=== PATIENT | female | born 1955 | race Caucasian/White ===

== ENCOUNTER → 2019-03-29 12:45 | Outpatient (BNVA) | payer MEDICARE, MEDICAID, SELFPAY | PROVIDERS: Family Provider Family Medicine; PCP Family Medicine; Visit Provider Psychiatry & Neurology Psychiatry | DX: F33.1 Major depressive disorder, recurrent, moderate (principal); F41.1 Generalized anxiety disorder | CPT/HCPCS: 99213 ==

== ENCOUNTER 2019-04-07 10:30 | Outpatient (CLI) | payer MEDICARE, MEDICAID, SELFPAY | END 2019-04-07 10:31 | disposition home or self-care (01) | LOC: RAD 04-08 15:25 | PROVIDERS: Family Provider Family Medicine; PCP Family Medicine; Referring Provider Family Medicine; Visit Provider Family Medicine | DX: E04.9 Nontoxic goiter, unspecified (principal); I50.30 Unspecified diastolic (congestive) heart failure | CPT/HCPCS: 80048; 83880; 84443 ==

== ENCOUNTER 2019-04-18 10:24 | Outpatient (CLI) | payer MEDICARE, MEDICAID, SELFPAY ==
--- NOTE | 2019-04-18 11:00 | US_ITS ---
WS: [id number] THYROID ULTRASOUND HISTORY: enlarged thyroid vs salivary gland COMPARISON: None available. Right lobe: 4.5 cm x 2.1 cm x 1.7 cm. Volume: 8.6 cm3. Hypoechoic nodule along the posterior mid RIGHT thyroid gland measures 1.1 x 0.7 cm. Well-circumscrib ed with no increased vascularity. Left lobe: 4.2 cm x 1.4 cm x 1.4 cm. Volume: 4.2 cm3. Normal size gland. A few benign cystic areas. No dominant mass or nodule. Isthmus: 0.5 mm. US/US thyroid [id number] IMPRESSION: 1. Indeterminate nodule in the posterior mid RIGHT thyroid. Due to its positio n this may represent a parathyroid adenoma or thyroid adenoma. 2. Normal size thyroid.
--- NOTE | 2019-04-18 12:45 | US_ITS ---
WS: [id number] ULTRASOUND SOFT TISSUES LEFT neck HISTORY: prominent salivary gland COMPARISON: None available. TECHNIQUE: 2-D and color Doppler imaging is submitted. Ultrasound is directed to the LEFT mandible. There is a benign lymph node as directed by the patient measuring 9 x 5 mm. Normal fatty hilum. There are additional smaller lymph nodes along both cervical chains. No suspicious mass or enlargement. US/US soft tissue head neck [id number] IMPRESSION: Benign-appearing bilateral cervical chain lymph nodes.
== END 2019-04-18 10:25 | disposition home or self-care (01) ==
LOC: RAD 10:31
PROVIDERS: Family Provider Family Medicine; PCP Family Medicine; Visit Provider Family Medicine
DX: K11.1 Hypertrophy of salivary gland (principal); E04.1 Nontoxic single thyroid nodule
CPT/HCPCS: 76536

== ENCOUNTER 2019-04-20 09:22 | Outpatient (CLI) | payer MEDICARE, MEDICAID, SELFPAY ==
--- NOTE | 2019-04-20 09:30 | USCV_ITS ---
Alexia Kang Age: 63 Gender: F : 1955 Exam Date: 04/20/2019 10:11 Ordering Phys: Makenzie Sethi Technologist: Jannie Horne [place] [facility] [place]: CHF BP: 123 / 73 HR: 61 Rhythm: Sinus Technical Quality: Adequate MEASUREMENTS (Male / Female) Normal Values 2D ECHO LV Diastolic Diameter PLAX 3.9 cm 4.2 - 5.9 / 3.9 - 5.3 cm LV Systolic Diameter PLAX 2.0 cm LV Chamber Size 2.8 cm IVS Diastolic Thickness 1.4 cm 0.6 - 1.0 / 0.6 - 0.9 cm IVS Systolic Thickness 1.5 cm LVPW Diastolic Thickness 2.0 cm 0.6 - 1.0 / 0.6 - 0.9 cm LVPW Systolic Thickness 2.3 cm RV Chamber Size 3.3 cm LVOT Diameter 2.0 cm LV Ejection Fraction 2D Teich 81.1 % LV Ejection Fraction MOD 2C 72.1 % LV Ejection Fraction 2C AL 72.4 % LA Diameter 4.0 cm LA Width 3.4 cm LA Height 4.3 cm RA Width 3.6 cm RA Height 4.3 cm Aorta at Sinotubular Diameter 2.5 cm M-MODE LV Diastolic Diameter MM 5.0 cm 4.2 - 5.9 / 3.9 - 5.3 cm LV Systolic Diameter MM 2.7 cm LV Ejection Fraction MM Teich 76.3 % IVS Diastolic Thickness MM 1.3 cm 0.6 - 1.0 / 0.6 - 0.9 cm IVS Systolic Thickness MM 1.4 cm LVPW Diastolic Thickness MM 1.1 cm 0.6 - 1.0 / 0.6 - 0.9 cm LVPW Systolic Thickness MM 1.7 cm Aortic Annulus Diameter 3.1 cm LA Ao Ratio MM 1.3 MV E Point Septal Separation 0.7 cm DOPPLER AV Peak Velocity 135.0 cm/s LVOT Peak Velocity 119.0 cm/s AV Area Cont Eq vti 3.0 cm squared AV Area Cont Eq pk 2.8 cm squared MV Area PHT 2.5 cm squared Mitral E to A Ratio 0.9 MV E' Velocity 9.0 cm/s Mitral E to MV E' Ratio 12.1 Mitral E to LV E' Lateral Ratio 11.5 Mitral E to LV E' Septal Ratio 12.8 TR Peak Velocity 204.0 cm/s TR Peak Gradient 16.7 mmHg TR Mean Velocity 178.1 cm/s TR Mean Gradient 14.6 mmHg TR Velocity Time Integral 81.6 cm TV Peak E Velocity 71.0 cm/s Right Atrial Pressure 3.0 mmHg Pulmonary Artery Systolic Pressu 19.6 mmHg PV Peak Velocity 70.0 cm/s RV Acceleration Time 0.1 s RV Ejection Time 0.4 s RV AcT/ET 0.4 FINDINGS Left Ventricle Normal left ventricular cavity size. Normal left ventricular systolic function. No regional wall motion abnormalities. Left ventricular ejection fraction is estimated at 60 %. Grade I/IV diastolic dysfunction (abnormal relaxation filling pattern), normal to mildly elevated filling pressures. Right Ventricle The right ventricle is normal in size and function. Right Atrium The right atrium is normal in size. Left Atrium The left atrium is normal in size. Mitral Valve Structurally normal mitral valve without significant stenosis or prolapse. There is no mitral regurgitation. Aortic Valve Structurally normal aortic valve without significant sclerosis or stenosis. There is no aortic regurgitation. Tricuspid Valve Structurally normal tricuspid valve without significant stenosis or regurgitation. Pulmonary artery systolic pressure is normal. Pulmonic Valve Structurally normal pulmonic valve without significant stenosis. There is no pulmonic regurgitation. Pericardium Normal pericardium without effusion. Aorta Normal ascending aorta dimension. CONCLUSIONS 1-Normal left ventricular cavity size. Normal left ventricular systolic function. No regional wall motion abnormalities. Left ventricular ejection fraction is estimated at 60 %. Grade I/IV diastolic dysfunction (abnormal relaxation filling pattern), normal to mildly elevated filling pressures. 2-There is no pericardial effusion. 3-No significant valve abnormalities. 4-Pulmonary artery systolic pressure is within normal limits. 5-Right atrial pressure is around 5 mm of mercury. 6-There are no prior echocardiogram studies to compare. Lou Deutsch MD (Electronically Signed) Final Date: 20 April 2019 19:47 S
== END 2019-04-20 09:23 | disposition home or self-care (01) ==
LOC: US 09:24
PROVIDERS: Family Provider Family Medicine; PCP Family Medicine; Visit Provider Nurse Practitioner Family
DX: I50.30 Unspecified diastolic (congestive) heart failure (principal)
CPT/HCPCS: 93306

== ENCOUNTER 2019-04-26 11:22 | Outpatient (CLI) | payer MEDICARE, MEDICAID, SELFPAY | END 2019-04-26 11:23 | disposition home or self-care (01) | LOC: LAB 11:26 | PROVIDERS: Family Provider Family Medicine; PCP Family Medicine; Visit Provider Otolaryngology | DX: E04.1 Nontoxic single thyroid nodule (principal) | CPT/HCPCS: 36415; 84443; 99203; 99214 ==

== ENCOUNTER 2019-04-27 08:49 | Outpatient (CLI) | payer MEDICARE, MEDICAID, SELFPAY ==
--- NOTE | 2019-04-27 09:30 | USCV_ITS ---
Alexia Kang Age: 63 Gender: F : 1955 Exam Date: 04/27/2019 09:10 Ordering Phys: Lou Deutsch MD ([email or web address]) Technologist: Gopi Gates Exam Location: [facility] [place] Indication: HISTORY: PROCEDURES: FINDINGS: No evidence of DVT seen in any vessel visualized at this time. There is reflux noted in the GSV below the knee on the right lower extremity. At this time no other vessels examined in the right lower extremity demonstrate reflux. There is reflux noted in the SFJ and GSV DIST TO on the left lower extremity. At this time no other vessels examined in the left lower extremity demonstrate reflux. CONCLUSIONS No evidence of DVT in the above-mentioned identifiable veins. On the right side, significant venous reflux of greater than 500 ms was noted at the below knee greater sinus vein segment. On the left side, significant venous reflux of greater than 500 ms were noted at the saphenofemoral junction and the greater saphenous vein distal to the saphenofemoral junction. The superficial veins were found to be more than 1 cm deep on both sides. The venous dimensions, depth from the surface and reflux times are as mentioned above Dr Vivien Rico MD [facility] (Electronically Signed) Final Date: 27 April 2019 20:26 S
== END 2019-04-27 08:50 | disposition home or self-care (01) ==
LOC: US 08:50
PROVIDERS: Family Provider Family Medicine; PCP Family Medicine; Visit Provider Internal Medicine Cardiovascular Disease
DX: M79.89 Other specified soft tissue disorders (principal)
CPT/HCPCS: 93970

== ENCOUNTER → 2019-05-04 10:59 | Outpatient (BNVA) | payer MEDICARE, MEDICAID, SELFPAY | PROVIDERS: Family Provider Family Medicine; PCP Family Medicine; Visit Provider Otolaryngology | DX: E04.1 Nontoxic single thyroid nodule (principal) | CPT/HCPCS: 99204; 99214 ==

== ENCOUNTER → 2019-05-10 15:59 | Outpatient (BNVA) | payer MEDICARE, MEDICAID, SELFPAY | PROVIDERS: Family Provider Family Medicine; PCP Family Medicine; Visit Provider Nurse Practitioner Family | DX: I87.2 Venous insufficiency (chronic) (peripheral) (principal) | CPT/HCPCS: 80048 ==

== ENCOUNTER 2019-05-12 09:06 | Outpatient (CLI) | payer MEDICARE, MEDICAID, SELFPAY ==
[2019-05-11 11:33] VITALS: BMI 49.6
--- NOTE | 2019-05-12 10:30 | US_ITS ---
WS: [id number] THYROID ULTRASOUND HISTORY: Nodule COMPARISON: 04/18/2019. Recently described hypoechoic nodule posterior to the RIGHT thyroid is located. Nodule is not within the thyroid but posterior to the thyroid and may be the esophagus that is very mobile during patient swallowing. During swallowing there did appear to be a small amount of air present. US/US thyroid [id number] IMPRESSION: 1. During today's ultrasound evaluation the nodule is posterior to the thyroid . 2. Suspect this is probably the esophagus which can be seen if it is ectatic a nd posterior to the thyroid.
== END 2019-05-12 09:07 | disposition home or self-care (01) ==
LOC: GILAB 09:15
PROVIDERS: Family Provider Family Medicine; PCP Family Medicine; Visit Provider Otolaryngology
DX: E04.1 Nontoxic single thyroid nodule (principal)
CPT/HCPCS: 76536; J7030

== ENCOUNTER → 2019-05-19 10:00 | Outpatient (BNVA) | payer MEDICARE, MEDICAID, SELFPAY | PROVIDERS: Family Provider Family Medicine; PCP Family Medicine; Visit Provider Otolaryngology | DX: R13.10 Dysphagia, unspecified (principal); E04.1 Nontoxic single thyroid nodule | CPT/HCPCS: 36415; 84443; 99214 ==

== ENCOUNTER → 2019-05-31 11:57 | Outpatient (BNVA) | payer MEDICARE, MEDICAID, SELFPAY | PROVIDERS: Family Provider Family Medicine; PCP Family Medicine; Visit Provider Family Medicine | DX: I87.2 Venous insufficiency (chronic) (peripheral) (principal); R35.8 Other polyuria; R60.9 Edema, unspecified; I50.30 Unspecified diastolic (congestive) heart failure | CPT/HCPCS: 80053; 83735 ==

== ENCOUNTER → 2019-06-08 08:43 | Outpatient (BNVA) | payer MEDICARE, MEDICAID, SELFPAY | PROVIDERS: Family Provider Family Medicine; PCP Family Medicine; Visit Provider Family Medicine | DX: I50.30 Unspecified diastolic (congestive) heart failure (principal) | CPT/HCPCS: 80053 ==

== ENCOUNTER → 2019-06-13 09:00 | Outpatient (BNVA) | payer MEDICARE, MEDICAID, SELFPAY | PROVIDERS: Family Provider Family Medicine; PCP Family Medicine; Visit Provider Psychiatry & Neurology Psychiatry | DX: F41.1 Generalized anxiety disorder (principal); F33.2 Major depressive disorder, recurrent severe without psychotic features | CPT/HCPCS: 99213 ==

== ENCOUNTER → 2019-06-23 08:07 | Outpatient (BNVA) | payer MEDICARE, MEDICAID, SELFPAY | PROVIDERS: Family Provider Family Medicine; PCP Family Medicine; Visit Provider Social Worker | DX: F41.1 Generalized anxiety disorder (principal); F33.2 Major depressive disorder, recurrent severe without psychotic features | CPT/HCPCS: 90834 ==

== ENCOUNTER 2019-06-29 07:33 | Outpatient (CLI) | payer MEDICARE, MEDICAID, SELFPAY ==
--- NOTE | 2019-06-29 | USCV_ITS ---
Alexia Kang Age: 63 Gender: F : 1955 Exam Date: 06/29/2019 07:49 Ordering Phys: Lou Deutsch MD ([email or web address]) Technologist: [place] [facility] [place]: claudication RIGHT LEFT Brachial 155.00 mmHg Brachial 141.00 mmHg Pressure (mmHg) Waveform Pressure (mmHg) Waveform 175.00 TELETRAY OPERATOR 170.00 156.00 DPA 152.00 1.13 Ankle/Brachial Index 1.10 0.85 Post-Exercise Ankle Brachial Index 0.97 FINDINGS Resting VANIA of 1.13 on the right and 1.1 on the left side. The post exercise VANIA was 0.85 on the right and 0.97 on the left 3-minute after the exercise, the ABIs return back to the baseline CONCLUSIONS 1. Features of mild peripheral arterial disease on the right side 2. No significant arterial obstruction on the left side Dr Vivien Rico MD [facility] (Electronically Signed) Final Date: 29 June 2019 16:49 S
--- NOTE | 2019-06-29 08:00 | USCV_ITS ---
Davidmadisebastian Alexia Age: 63 Gender: F : 1955 Exam Date: 06/29/2019 08:23 Ordering Phys: Makenzie Sethi Technologist: Rashmi Ding [place] [facility] [place]: claudication Risk Factors: Previous Vascular Surgery: RIGHT LEFT BP: 155.0 / BP: 141.0/ 0 0 Waveform Velocity (cm/s) Velocity (cm/s) Waveform Triphasic 155.2 Iliac Prox 129.9 Triphasic Triphasic 109.3 Iliac Mid 123.5 Triphasic Triphasic Iliac Distal Triphasic 114.0 123.5 Triphasic 114.0 LAYOUT MECHANIC 126.8 Triphasic Triphasic 83.9 SFA Prox 129.7 Triphasic Triphasic 112.5 SFA Mid 145.7 Triphasic Triphasic 59.4 SFA Dist 104.3 Triphasic Triphasic 67.6 POP 142.0 Triphasic Triphasic 91.4 NOZZLE TENDER 142.0 Triphasic Triphasic 85.9 DPA 99.9 Triphasic 1.1 VANIA 1.1 FINDINGS Pt had a VANIA with exercise during this appointment also. Results are under a seperate exam. Normal resting ABIs bilaterally Normal/near normal arterial Doppler waveforms Minimal plaques and intimal thickening in the iliac and femoral arteries bilaterally CONCLUSIONS No significant arterial obstruction, based on the above findings Minimal plaques and intimal thickening in the iliac and femoral arteries bilaterally Dr Vivien Rico MD [facility] (Electronically Signed) Final Date: 29 June 2019 16:58 S
--- NOTE | 2019-06-29 08:45 | US_ITS ---
WS: [id number] ULTRASOUND RENAL TECHNIQUE: Ultrasound examination of both kidneys. CLINICAL INFORMATION: possible congenital renal defect COMPARISON: None. FINDINGS: RIGHT: Right kidney is normal in size and appearance. Echogenicity: Normal. Cortical thickness: 1.2 cm; Normal. Hydronephrosis: None. Perinephric fluid: None. Right kidney measures: 9.1 cm x 5.6 cm x 3.9 cm. LEFT: Left kidney is normal in size and appearance. Echogenicity: Normal. Cortical thickness: 1.5 cm; Normal. Hydronephrosis: None. Perinephric fluid: None. Left kidney measures: 11.1 cm x 5.5 cm x 6.3 cm. Normal visualized aorta. US/US renal BI* [id number] IMPRESSION: Normal renal ultrasound
== END 2019-06-29 07:34 | disposition home or self-care (01) ==
PROVIDERS: Family Provider Family Medicine; PCP Family Medicine; Visit Provider Nurse Practitioner Family
DX: I73.9 Peripheral vascular disease, unspecified (principal)
CPT/HCPCS: 76770; 93922; 93925

== ENCOUNTER 2019-07-06 09:06 | Day surgery (SDC) | payer MEDICARE, MEDICAID, SELFPAY ==
[2019-07-05 11:17] VITALS: BMI 47.8
[2019-07-06 09:15] VITALS: BP 120/77; PULSE 60; RESP 20; TEMP 36.9; O2SAT 95
--- NOTE | 2019-07-06 09:27 | P.HP_ITS ---
Same Day Surgery H&P Indication for Procedure/HPI DATE OF PROCEDURE: July 06, 2019 CHIEF COMPLAINT/INDICATIONFOR SURGICAL PROCEDURE: Left hand skin lesion PREOP DIAGNOSIS: Left hand skin lesion PLANNED PROCEDRUE: Operation Date: 07/06/19 10:20 Proposed Procedures p Local Excision of left Hand skin lesion 46202 L98.9(Left) - Benjamín Sampson MD This is a pleasant 64 years old female patient presents to my office as a referral with concerning lesion on the dorsum of the left hand located at the bases of the left index and middle finger, patient has been having this lesion for the last 3 years and just getting bigger gets itchy and develops a scab that she removes intermittently, concerning for neoplastic component of this lesion thus patient was referred to me for further evaluation, she does also recall that she has numbness of her left hand due to concern of left carpal tunnel syndrome, apparently the patient had surgery before on her right hand for the same purpose. Patient is interested to have this lesion removed surgically as it has been cauterized before but keeps on coming back. Patient comes today for outpatient surgical services with the plan to perform excision of the left hand skin lesion ROS All systems have been reviewed negative except as for the above Medications/Allergies* Home Medications Medication Instructions Recorded Confirmed Type aspirin 325 mg tablet 325 mg PO QDAY 03/28/19 07/05/19 History Allergies/Adverse Reactions Allergy/AdvReac Type Severity Reaction Status Date / Time No Known Allergies Allergy Verified 06/01/19 09:29 Pertinent History/Comorbid Conditions* Medical History (Updated 06/13/19 @ 10:38 by Clifton Solis MD) Anxiety and depression Chronic pain Dysphagia Hypertension Venous insufficiency Surgical History (Updated 04/08/19 @ 16:07 by PAPITO Campbell) History of carpal tunnel surgery of right wrist History of tonsillectomy and adenoidectomy Hx of appendectomy Hx of cholecystectomy Hx of hysterectomy Hx of tubal ligation Family History (Updated 04/07/19 @ 11:09 by Gia Contreras RN) Diabetes Sister Grandmother CAD (coronary artery disease) Clotting disorder Mother Dementia Mother Father Hyperlipidemia Sister Father Psychiatric illness Mother Grandfather Chronic kidney disease (CKD) Mother Sister Family history of premature coronary artery disease Mother Sister Father Lung disease Sister Hypertension Mother Sister Father Grandmother Stroke Social History Smoking and tobacco status: never smoked Second hand smoke exposure: No Smoking risk assessment/counseling performed?: Yes Tobacco counseling given: counseling >3 minutes Alcohol intake: never Counseling given: Yes Pertinent Exam Findings alert, oriented x 3, clear to auscultation bilaterally, regular rate & rhythm and operative site marked Abdominal examination nontender nondistended morbidly obese Recommendations Surgery/Procedure today (Wide local excision of left hand skin, informed consent per chart) Coding Level of Care Code Acute Woodworking Machine 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
[2019-07-06] MEDS: sodium chloride 0.9% 1,000 ML 30 ML IV (09:33)
--- NOTE | 2019-07-06 09:38 | ANES.PREANE2 ---
Pre-Anesthetic Assessment Pre-Anesthetic Assessment: Height/Weight: Height 1.6 m Weight 122.47 kg Temp Pulse Resp BP Pulse Ox 98.5 F 60 20 H 120/77 95 07/06/19 09:15 07/06/19 09:15 07/06/19 09:15 07/06/19 09:15 07/06/19 09:15 Preop Diagnosis: Left hand skin lesion Proposed Procedure: Operation Date: 07/06/19 10:20 Proposed Procedures p Local Excision of left Hand skin lesion 12876 L98.9(Left) - Benjamín Sampson MD Familial anesthetic complications: Slow to wake up Was Beta Lisa taken within 24 hours: Yes Last intake: Intake Last Liquid Date 07/06/19 Last Liquid Time 23:30 Last Solid Date 07/05/19 Last Solid Time 23:15 Social: Social History: No alcohol and No tobacco Exam: Pre-Anes Outpt Exam: alert, oriented x 3, clear to auscultation bilaterally and regular rate & rhythm Airway: Cervical ROM: WNL MP: 4 Additional comments: edentulous Pulmonary: Pulmonary: Sleep apnea (CPAP) CV/HEM: CV/HEM: Afib and HTN : : None reported Hepatic: Hepatic: None reported GI: GI: None reported Metabolic: Metabolic: DM Comments: pRe diabetic Musc/skel: Musc/skel: OA/DJD (B/L knees) Neuropsych: Neuropsych: None reported Anesthetic Plan: ASA status: 2 Anesthesia: MAC Risk of > 500 ml blood loss (7ml/kg in children): No Meds/Allergies Current Medications: Current Medications Generic Name Dose Route Start Last Admin Trade Name Freq PRN Reason Stop Dose Admin Sodium Chloride 1,000 mls @ 30 ml s/hr 07/06/19 09:15 07/06/19 09:33 Sodium Chloride 0.9% IV 07/07/19 09:14 30 mls/hr .Q24H KIMBERLY Administration PFSH Anesthesia PFSH: Social History Smoking and tobacco status: never smoked Second hand smoke exposure: No Smoking risk assessment/counseling performed?: Yes Tobacco counseling given: counseling >3 minutes Alcohol intake: never Counseling given: Yes Data Anesthesia Cardiac Studies: No Data to Display
[2019-07-06] MEDS: lidocaine 2% INJ 20 mL INJECTION (11:22)
[2019-07-06] MEDS: neomycin-poly-bacitracin oint 28 gm 1 APPLIC TOPICAL (11:33)
--- NOTE | 2019-07-06 11:52 | PM.OP ---
Operative Report Date of procedure: July 06, 2019 Pre-op Diagnosis: Left hand skin lesion Post-op diagnosis: same Post-op Diagnosis: Skin lesion occupying the dorsum of the hand measures about 1.5 x 1.5 cm concerning for neoplastic skin lesion Procedure Done: Wide local excision of left hand dorsal skin lesion Specimens removed/disposition: Specimen marked short sutures superior and long sutures marked lateral Surgeon: Benjamín Sampson Line Assembly Utility Worker: surveying technician Drew Circulating nurse Belen Anesthesia: MAC (communication skills instructor Victor Manuel) and Local Estimated blood loss (mL): 5 Condition: stable Disposition: same day Brief History: This is a pleasant 64 years old female patient presents to my office as a referral with concerning lesion on the dorsum of the left hand located at the bases of the left index and middle finger, patient has been having this lesion for the last 3 years and just getting bigger gets itchy and develops a scab that she removes intermittently, concerning for neoplastic component of this lesion thus patient was referred to me for further evaluation, she does also recall that she has numbness of her left hand due to concern of left carpal tunnel syndrome, apparently the patient had surgery before on her right hand for the same purpose. Patient is interested to have this lesion removed surgically as it has been cauterized before but keeps on coming back. Patient comes today for outpatient surgical services with the plan to perform excision of the left hand skin lesion Informed consent per chart Procedure: After identifying the patient holding area, the correct site and side was marked before the procedure by myself, patient was then taken to the operative suite, was placed in in supine position, anesthesia was administered by the anesthesia provider ,Time-out was done verifying the patient's name/date of /planned procedure and destination after the procedure, all were in agreement, preoperative antibiotics administered per protocol, and beta phillip protocol was confirmed Prep and drape of the left upper extremity including the left hand region was done under the usual sterile technique. Local anesthesia 2% lidocaine was infiltrated site of the incision, 1.5 x 1.5 cm skin lesion concerning for cancer,elliptical skin incision was done including the normal skin with appropriate safety margin,incision was done all the way down to the subcutaneous tissues dissection was then carried on , the specimen was oriented by 3-0 nylon sutures marking Hemostasis was achieved, subdermal closure done by 3-0 Vicryl followed by continuous 3-0 nylon,followed by triple antibiotic ointment and dry dressing including Joshua wrap Specimen was passed to the circulating nurse for permanent pathology Count was completed at the end of the procedure Patient was taken to the recovery room in stable condition
[2019-07-06 11:54] VITALS: BP 160/73; PULSE 59; RESP 14; TEMP 36.3; O2SAT 95
[2019-07-06 12:21] VITALS: BP 129/75; PULSE 62; RESP 18; O2SAT 95
== END 2019-07-06 12:35 | disposition home or self-care (01) ==
PROVIDERS: Family Provider Family Medicine; PCP Family Medicine; Visit Provider Surgery
PROC: (CPT 11622; principal; 2019-07-06 10:10)
DX: C44.629 Squamous cell carcinoma of skin of left upper limb, including shoulder (principal); G47.30 Sleep apnea, unspecified; I48.91 Unspecified atrial fibrillation; I10 Essential (primary) hypertension; E11.9 Type 2 diabetes mellitus without complications; M17.0 Bilateral primary osteoarthritis of knee; Z82.49 Family history of ischemic heart disease and other diseases of the circulatory system; Z83.3 Family history of diabetes mellitus
CPT/HCPCS: 11622; 12041; 12345; 88304; 96365; J0690; J2001; J2250; J2704; J3010; J7030

== ENCOUNTER → 2019-08-22 09:28 | Outpatient (BNVA) | payer MEDICARE, MEDICAID, SELFPAY | PROVIDERS: PCP Family Medicine; Visit Provider Internal Medicine Cardiovascular Disease | DX: I83.899 Varicose veins of unspecified lower extremity with other complications (principal) | CPT/HCPCS: 80048; 85025 ==

== ENCOUNTER → 2019-08-25 08:59 | Day surgery (SDC) | payer MEDICARE, MEDICAID, SELFPAY ==
[2019-08-23 21:15] LABS: Quest SARS-CoV-2 RNA NOT DETECTED (NOT DETECTED)
[2019-08-24 14:38] VITALS: BMI 48.0
[2019-08-25] MEDS: diazePAM 5 mg Tablet 10 MG PO (09:22)
[2019-08-25 09:27] VITALS: BP 178/95; PULSE 63; RESP 14; TEMP 36.6; O2SAT 96
--- NOTE | 2019-08-25 10:02 | W.PM.OPSUD ---
Surgery/Procedure H&P Update DATE OF PROCEDURE: August 25, 2019 DATE H&P PERFORMED: 08/25/19 H&P UPDATE INFORMATION: I have examined patient prior to procedure CHANGES TO PREVIOUS DOCUMENTATION: Symptoms and swelling of the left leg getting worse. Puckering of left leg skin. PREOP DIAGNOSIS: Left hand skin lesion PLANNED PROCEDURE: Operation Date: 08/25/19 10:00 Proposed Procedures p Venous Ablations(Left) - Lou Deutsch MD PATIENT REASSESSED PRIOR TO SEDATION, WITH NO CHANGE NOTED: Yes PHYSICAL EXAM: alert, oriented x 3 and clear to auscultation bilaterally AIRWAY EVAL/ANESTHESIA PLAN: Patient agrees to continue as planned
--- NOTE | 2019-08-25 10:05 | PM.HP ---
Providers/Chief Complaint Primary Care Provider: Gabino Christine MD Chief Complaint: Varicose veins History of Present Illness Mr. Pearl Hale is a 63-year-old female with history of chronic venous stasis Dermo liposclerosis hypertension and chronic pain fatigue history of cellulitis who is intolerant to stocking, she is on diuretics which is also affecting her kidneys. She is unable to walk because of swelling of the leg and pain. Patient has tried it many times but cannot wear it. Patient underwent venous reflux study in month of April 2019 which showed no evidence of DVT but significant more than 500 ms reflux on the left and right side on the left side where patient is hurting more with swelling of the leg venous reflux was observed at saphenofemoral junction and GSV distal to on the left lower extremity. Since she continued to be symptomatic and fails conservative management for more than 4-month she is here for venous ablation. Patient has been discussed all risk benefit and alternative for the procedure. We will proceed with left leg venous ablation. Problem anatomically we will encountered is that left great saphenous vein is deep I will try to ablate as far as I can inject tumescent. PROCEDURES: FINDINGS: No evidence of DVT seen in any vessel visualized at this time. There is reflux noted in the GSV below the knee on the right lower extremity. At this time no other vessels examined in the right lower extremity demonstrate reflux. There is reflux noted in the SFJ and GSV DIST TO on the left lower extremity. At this time no other vessels examined in the left lower extremity demonstrate reflux. CONCLUSIONS No evidence of DVT in the above-mentioned identifiable veins. On the right side, significant venous reflux of greater than 500 ms was noted at the below knee greater sinus vein segment. On the left side, significant venous reflux of greater than 500 ms were noted at the saphenofemoral junction and the greater saphenous vein distal to the saphenofemoral junction. The superficial veins were found to be more than 1 cm deep on both sides. The venous dimensions, depth from the surface and reflux times are as mentioned above Dr Vivien Rico MD [facility] (Electronically Signed) Final Date: 27 April 2019 Medications/Allergies Home Medications Medication Instructions Recorded Confirmed Last Taken Type aspirin 325 mg tablet 325 mg PO QDAY 03/28/19 08/24/19 07/04/19 History CPAP mask #1 ea 04/07/19 08/24/19 Unknown Rx naproxen 500 mg tablet 500 mg PO BID PRN 30 Days #60 tab 04/12/19 08/24/19 07/05/19 Rx amlodipine 5 mg tablet 5 mg PO QDAY 90 Days #90 tab 05/12/19 08/24/19 07/05/19 Rx isosorbide mononitrate 30 mg 15 mg PO BID 90 Days #90 tab 05/12/19 08/24/19 07/05/19 Rx tablet,extended release 24 hr metoprolol succinate 25 mg 25 mg PO BID 90 Days #180 tab 05/12/19 08/24/19 07/06/19 08:00 Rx tablet,extended release 24 hr bupropion HCl 300 mg 24 hr tablet, 300 mg PO QAM #30 tab 06/13/19 08/24/19 07/05/19 Rx extended release buspirone 10 mg tablet 10 mg PO QDAY #30 tab 06/13/19 08/24/19 07/05/19 Rx hydroxyzine HCl 50 mg tablet 50 mg PO BID PRN #60 tab 06/13/19 08/24/19 07/05/19 Rx paroxetine HCl 20 mg tablet 20 mg PO QDAY #30 tab 06/13/19 08/24/19 07/05/19 Rx bumetanide 2 mg tablet 2 mg PO BID 90 Days #180 tab 07/01/19 08/24/19 07/05/19 Rx hydrocodone-acetaminophen [[place]] 1 tab PO Q6H PRN #15 tab NS 07/06/19 08/24/19 Unknown Rx sulfamethoxazole 800 1 tab PO BID 10 Days #20 tab 07/18/19 08/24/19 Unknown Rx mg-trimethoprim 160 mg tablet fluconazole 40 mg/mL oral 50 mg PO BID 5 Days #12.5 ml 07/28/19 08/24/19 Unknown Rx suspension potassium chloride 10 mEq 20 meq PO BID 90 Days #360 cap 08/03/19 08/24/19 Unknown Rx capsule,extended release Allergies Allergy/AdvReac Type Severity Reaction Status Date / Time No Known Allergies Allergy Verified 08/24/19 14:37 PFSH Acute PFSH: Medical History (Updated 08/25/19 @ 10:17 by Lou Deutsch MD) Anxiety and depression Chronic pain Dysphagia Hypertension Varicose veins of bilateral lower extremities with pain Venous insufficiency Surgical History History of carpal tunnel surgery of right wrist History of tonsillectomy and adenoidectomy Hx of appendectomy Hx of cholecystectomy Hx of hysterectomy Hx of tubal ligation Status post excision of skin lesion, follow-up exam Family History Mother Chronic kidney disease (CKD) Clotting disorder Dementia Family history of premature coronary artery disease Hypertension Psychiatric illness Sister Chronic kidney disease (CKD) Diabetes Family history of premature coronary artery disease Hyperlipidemia Hypertension Lung disease Father Dementia Family history of premature coronary artery disease Hyperlipidemia Hypertension Grandmother Diabetes Hypertension Grandfather Psychiatric illness Other CAD (coronary artery disease) Stroke Social History Smoking and tobacco status: never smoked Second hand smoke exposure: No Smoking risk assessment/counseling performed?: Yes Tobacco counseling given: counseling >3 minutes Alcohol intake: never Counseling given: Yes Vitals/I&O/Wt Last Vital Signs Temp 97.9 F 08/25/19 09:27 Pulse 63 08/25/19 09:27 Resp 14 08/25/19 09:27 BP 178/95 08/25/19 09:27 Pulse Ox 96 08/25/19 09:27 Weight last 48 hrs Weight 280 lb Weight 280 lb Physical Exam Narrative: EXAM NARRATIVE: GENERAL: Patient is alert, awake and oriented x3. NECK: No jugular vein distension. HEENT: No cyanosis. No icterus. No pallor. HEART: Regular S1 and S2. No murmur, rub or gallop. LUNGS: Clear to auscultate bilaterally. ABDOMEN: Soft, nontender and nondistended. Positive bowel sounds. No guarding, rebound or tenderness. CENTRAL NERVOUS SYSTEM: Grossly nonfocal. EXTREMITIES: Lower extremities with 2+ edema on the left and 1+ on the right. Patient has dermoliposclerosis with mild cellulitis, apparently venous stasis/healed ulcer-like skin A&P Assessment and plan (1) Varicose veins of bilateral lower extremities with pain: Patient is here after failing conservative management. Patient has symptomatic varicose vein with significant reflux as defined above. CEAP classification is 4a, we will proceed with left great saphenous vein ablation as far as we can inject the tumescent as vein is situated deep. Patient has been explained all risk benefit and alternative for the procedure. She understands risk of DVT. She understands risk of pulmonary embolism and she understand that she may have to take antibiotics or in worse case scenario IVC filter if indicated as result of complication. Status: Acute Attestations Medical Necessity Statement*: I am not expecting her stay to cross more than few hours Coding Level of Care Code Established Pt Acute Torch Straightener And Heater for Chg Fwd Patient Type Established History Expanded Problem Focused Exam Expanded Problem Focused Medical Decision Making Low Complexity Diagnoses Varicose veins of bilateral lower extremities with pain I83.813
--- NOTE | 2019-08-25 11:31 | PM.PROC ---
Other Information: The insufficient saphenous vein left verified by ultrasound and diagrammed on the overlying skin. The varicose tributary veins and suitable access sites were identified and mapped. The affected area prepped and draped in the usual sterile fashion. The patient was placed in reverse Trendelenburg position. Tumescent was instilled in the skin overlying the access site for local anesthesia. The vein was accessed PROXIMAL, MID, DISTAL - THIGH/CALF using ultrasound guidance and the Seldinger technique, a guidewire was introduced through the needle, which was then exchanged over the guidewire for a 7F sheath. The RF catheter was placed on the sterile field, flushed and wiped down, prepared, and connected by a sterile cable. The patient was placed in Trendelenburg position. After RF catheter position was verified by ultrasound, tumescent anesthesia was infiltrated, under ultrasound guidance, precisely into the perivenous compartment along the entire length of vein. After the RF catheter position was again confirmed with ultrasound imaging, and under direct external compression along the length of the heating element, RF energy was applied. The vein was segmentally ablated until the treatment length is completed. Device temperature was maintained at 120 +/- degrees C with an initial power level of 40W dropping to below 20W for each treatment. Total vein length treated 46 cm. Total cycles of RF 14. Time 4 minutes and 29 seconds. Repeat ultrasound of the left great saphenous vein vein(s) was performed, confirming successful treatment. The catheter and sheath were withdrawn and hemostasis established with direct pressure. After assuring hemostasis, the skin incision over the saphenous vein was closed with a bandage and graduated compression stockings was applied from the level of the foot to the most proximal length of the thigh. Coding Level of Care Code Acute Chicken Catcher for Adelina Johnson
== END | disposition home or self-care (01) ==
PROVIDERS: PCP Family Medicine; Visit Provider Internal Medicine Cardiovascular Disease
DX: I83.813 Varicose veins of bilateral lower extremities with pain (principal); I87.2 Venous insufficiency (chronic) (peripheral); Z79.82 Long term (current) use of aspirin; Z79.891 Long term (current) use of opiate analgesic; G89.29 Other chronic pain; I10 Essential (primary) hypertension
CPT/HCPCS: 12345; 36475; 87635; C1769; C1888; C1894; J2001; J7040; J7050

== ENCOUNTER 2019-09-01 08:25 | Outpatient (CLI) | payer MEDICARE, MEDICAID, SELFPAY ==
--- NOTE | 2019-09-01 08:45 | USCV_ITS ---
Alexia Kang Age: 63 Gender: F : 1955 Exam Date: 09/01/2019 08:32 Ordering Phys: Lou Deutsch MD ([email or web address]) Technologist: Jannie Horne Exam Location: [facility] [place] Indication: Post Ablation HISTORY: Post Left GSV ablation PROCEDURES: Venous duplex imaging was performed in only the left lower extremity. The following venous structures were evaluated: common femoral vein, profunda vein, proximal portion of the greater saphenous vein, superficial femoral vein, and the popliteal vein. In addition, the posterior tibial and peroneal trunk were evaluated. Serial compression, augmentation maneuvers, and spectral Doppler flow evaluation were performed. FINDINGS: Normal 2-D Doppler and augmentation and compressibility throughout the lower extremity venous structures. Additional imaging through the proximal calf veins also reveals no thrombus. Limited evaluation of the greater saphenous vein is thrombused due to ablation. CONCLUSIONS No DVT left lower extremity. Post ablation left GSV. Dr. Alison Chawla DO (Electronically Signed) Final Date: 01 September 2019 14:15 S
== END 2019-09-01 08:26 | disposition home or self-care (01) ==
LOC: RAD 08:30
PROVIDERS: PCP Family Medicine; Visit Provider Internal Medicine Cardiovascular Disease
DX: I83.892 Varicose veins of left lower extremity with other complications (principal)
CPT/HCPCS: 93971

== ENCOUNTER → 2019-09-05 07:45 | Outpatient (BNVA) | payer MEDICARE, MEDICAID, SELFPAY | PROVIDERS: PCP Family Medicine; Visit Provider Psychiatry & Neurology Psychiatry | DX: F41.1 Generalized anxiety disorder (principal); F33.2 Major depressive disorder, recurrent severe without psychotic features | CPT/HCPCS: 99213 ==

== ENCOUNTER → 2019-09-21 12:06 | Outpatient (BNVA) | payer MEDICARE, MEDICAID, SELFPAY | PROVIDERS: PCP Family Medicine; Visit Provider Family Medicine | DX: I87.2 Venous insufficiency (chronic) (peripheral) (principal); R60.0 Localized edema; R73.9 Hyperglycemia, unspecified; L97.909 Non-pressure chronic ulcer of unspecified part of unspecified lower leg with unspecified severity; I83.009 Varicose veins of unspecified lower extremity with ulcer of unspecified site; M18.12 Unilateral primary osteoarthritis of first carpometacarpal joint, left hand; G56.02 Carpal tunnel syndrome, left upper limb; M65.30 Trigger finger, unspecified finger; R20.0 Anesthesia of skin; R20.2 Paresthesia of skin | CPT/HCPCS: 80053; 83036 ==

== ENCOUNTER 2019-09-28 08:00 | Outpatient (CLI) | payer MEDICARE, MEDICAID, SELFPAY | END 2019-09-28 08:01 | disposition home or self-care (01) | LOC: WOUND 08:02 | PROVIDERS: PCP Family Medicine; Visit Provider Emergency Medicine | DX: I87.2 Venous insufficiency (chronic) (peripheral) (principal); L97.822 Non-pressure chronic ulcer of other part of left lower leg with fat layer exposed | CPT/HCPCS: 11042; 87070; 87077; 87176; 87186; 87205; G0463 ==

== ENCOUNTER 2019-09-30 09:03 | Outpatient (CLI) | payer MEDICARE, MEDICAID, SELFPAY ==
--- NOTE | 2019-09-30 09:30 | USCV_ITS ---
Alexia Kang Age: 63 Gender: F : 1955 Exam Date: 09/30/2019 09:30 Ordering Phys: Lou Deutsch MD ([email or web address]) Technologist: Xander Gomez [place]am Location[place] [facility] [place]ication: POST ABLATION LT GSAPH HISTORY: 2ND FOLLOW UP ON LT SAPH PROCEDURES: RE CHECK LT GSAPH FROM GSAPH JUNCTION TO MID GSAPH FINDINGS: THE JUNCTION AND PROX LT GSAPH IS OPEN. THE ABLATED LT GSAPH AT MID IS ABLATED FROM MID TO DISTAL GSAPH. THERE IS A MAJOR BRANCH AT THE MID GSAPH THAT HAS RECANALIZED THE SAPH SYSTEM. THIS ACESSORY VEIN ENDS IN THE MID THIGH. The proximal segment of the greater saphenous vein was found to be partially compressible CONCLUSIONS The saphenofemoral junction was found to be patent. The mid, distal and the below-knee greater saphenous vein segments appeared to be thrombosed. The proximal segment of the greater saphenous vein is partially thrombosed, possibly recanalized. An accessary vein appears to be draining into the greater saphenous vein at the mid segment. Dr Vivien Rico MD [facility] (Electronically Signed) Final Date: 02 October 2019 20:29 S
== END 2019-09-30 09:04 | disposition home or self-care (01) ==
PROVIDERS: PCP Family Medicine; Visit Provider Internal Medicine Cardiovascular Disease
DX: Z98.890 Other specified postprocedural states (principal); I82.492 Acute embolism and thrombosis of other specified deep vein of left lower extremity
CPT/HCPCS: 93971

== ENCOUNTER 2019-10-03 13:07 | Outpatient (CLI) | payer MEDICARE, MEDICAID, SELFPAY | END 2019-10-03 13:08 | disposition home or self-care (01) | LOC: WOUND 13:09 | PROVIDERS: PCP Family Medicine; Visit Provider Emergency Medicine | DX: I87.2 Venous insufficiency (chronic) (peripheral) (principal); L97.822 Non-pressure chronic ulcer of other part of left lower leg with fat layer exposed | CPT/HCPCS: 11042 ==

== ENCOUNTER → 2019-10-05 14:02 | Outpatient (BNVA) | payer MEDICARE, MEDICAID, SELFPAY | PROVIDERS: PCP Family Medicine; Referring Provider Family Medicine; Visit Provider Specialist | DX: M79.641 Pain in right hand (principal); M79.642 Pain in left hand | CPT/HCPCS: 73130 ==

== ENCOUNTER 2019-10-10 10:54 | Outpatient (CLI) | payer MEDICARE, MEDICAID, SELFPAY | END 2019-10-10 10:55 | disposition home or self-care (01) | LOC: WOUND 10:56 | PROVIDERS: PCP Family Medicine; Visit Provider Nurse Practitioner Family | DX: I87.2 Venous insufficiency (chronic) (peripheral) (principal); L97.822 Non-pressure chronic ulcer of other part of left lower leg with fat layer exposed | CPT/HCPCS: 11042 ==

== ENCOUNTER 2019-10-14 09:17 | Outpatient (CLI) | payer MEDICARE, MEDICAID, SELFPAY ==
--- NOTE | 2019-10-14 09:26 | USCV_ITS ---
Alexia Kang Age: 63 Gender: F : 1955 Exam Date: 10/14/2019 09:25 Ordering Phys: Nisha Melchor DO Technologist: [place] [facility] [place]: PAIN REDNESS NON HEALING ULCER RIGHT LEFT Brachial 152.00 mmHg Brachial 147.00 mmHg Pressure (mmHg) Waveform Pressure (mmHg) Waveform 185.00 Above Knee 160.00 Below Knee 185.00 177.00 DROP MACHINE OPERATOR 151.00 193.00 DPA 168.00 1.27 Ankle/Brachial Index 1.10 74.00 Pre-Exercise Toe Pressure 96.00 0.49 Pre-Exercise Toe/Brachial Index 0.63 FINDINGS Normal resting ABIs bilaterally Diminished resting TBI's bilaterally PVR waveforms showing loss of dicrotic notch CONCLUSIONS Features of mild peripheral artery disease bilaterally Dr Vivien Rico MD [facility] (Electronically Signed) Final Date: 14 October 2019 13:15 S
== END 2019-10-14 09:18 | disposition home or self-care (01) ==
LOC: RAD 09:19
PROVIDERS: PCP Family Medicine; Visit Provider Emergency Medicine
DX: M79.604 Pain in right leg (principal); M79.605 Pain in left leg; L53.9 Erythematous condition, unspecified; L97.929 Non-pressure chronic ulcer of unspecified part of left lower leg with unspecified severity; L97.919 Non-pressure chronic ulcer of unspecified part of right lower leg with unspecified severity
CPT/HCPCS: 93923

== ENCOUNTER → 2019-10-18 09:46 | Outpatient (BNVA) | payer MEDICARE, MEDICAID, SELFPAY | PROVIDERS: PCP Family Medicine; Visit Provider Internal Medicine | DX: Z01.812 Encounter for preprocedural laboratory examination (principal); G56.02 Carpal tunnel syndrome, left upper limb | CPT/HCPCS: 87635 ==

== ENCOUNTER 2019-10-19 13:06 | Outpatient (CLI) | payer MEDICARE, MEDICAID, SELFPAY | END 2019-10-19 13:07 | disposition home or self-care (01) | LOC: WOUND 13:10 | PROVIDERS: PCP Family Medicine; Visit Provider Thoracic Surgery (Cardiothoracic Vascular Surgery) | DX: I87.2 Venous insufficiency (chronic) (peripheral) (principal); L97.822 Non-pressure chronic ulcer of other part of left lower leg with fat layer exposed | CPT/HCPCS: 11042 ==

== ENCOUNTER 2019-10-21 08:58 | Day surgery (SDC) | payer MEDICARE, MEDICAID, SELFPAY ==
[2019-10-20 13:01] VITALS: BMI 46.5
[2019-10-21 09:10] VITALS: BP 181/95; PULSE 72; RESP 18; TEMP 36.3; O2SAT 97
--- NOTE | 2019-10-21 09:15 | W.PM.OPSUD ---
Surgery/Procedure H&P Update DATE OF PROCEDURE: October 21, 2019 DATE H&P PERFORMED: 10/05/19 H&P UPDATE INFORMATION: I have reviewed H&P completed within last 30 days, I have examined patient prior to procedure, No changes to prior documentation and H&P is in [facility] [place] EMR on date indicated PREOP DIAGNOSIS: Left carpal tunnel syndrome PLANNED PROCEDURE: Operation Date: 10/21/19 10:30 Proposed Procedures p Carpal Tunnel Release 64816 G56.02(Left) - Mildred Florence MD Related Problem List Diagnoses (1) Left carpal tunnel syndrome:
[2019-10-21] MEDS: sodium chloride 0.9% 1,000 ML 30 ML IV (09:32)
[2019-10-21] MEDS: CELEcoxib 200 mg Capsule 400 MG PO (09:32)
[2019-10-21 09:34] LABS: Basophils # 0.1 10^3/uL (0.0-0.1); Eosinophils # 0.6 10^3/uL (0.0-0.8); Eosinophils % 6.1 %; Hematocrit 41.2 % (37.0-47.0); Hemoglobin 13.7 g/dL (11.5-15.3); Lymphocytes # 1.5 10^3/uL (0.8-4.8); Lymphocytes % 16.4 %; Mean Corpuscular HGB Conc 33.3 g/dL (30.0-36.0); Mean Corpuscular Hemoglobin 27.5 pg (28.0-34.0); Mean Corpuscular Volume 82.6 fL (81-99); Mean Platelet Volume 10.7 fL (7.4-10.4); Monocytes # 0.8 10^3/uL (0.2-0.9); Monocytes % 8.9 %; Neutrophils # 6.02 10^3/uL (1.8-7.7); Neutrophils % 67.2 %; Nucleated Red Blood Cells % 0 %; Platelet Count 250 10^3/cmm (130-400); Red Blood Count 4.99 10^6/uL (4.1-5.3); Red Cell Distribution Width 13.5 % (12.1-15.1)
[2019-10-21 09:51] LABS: Alanine Aminotransferase 25 U/L (0-33); Albumin Level 4.2 g/dL (3.5-5.2); Alkaline Phosphatase 77 IU/L (35-105); Anion Gap 15.6 (5-19); Aspartate Amino Transferase 23 U/L (0-32); Blood Urea Nitrogen 29 mg/dL (8-23); Calcium 9.6 mg/dL (8.5-10.5); Carbon Dioxide 34 mmol/L (22-29); Chloride 88 mmol/L (98-107); Globulin 2.9 g/dL (1.3-4.6); Glomerular Filtration Rate 45.5 mL/min (90-130); Glucose 219 mg/dL (65-115); Osmolality Calculated 284 mOsm/kg (285-295); Sodium 135 mmol/L (136-145); Total Bilirubin 0.4 mg/dL (0.15-1.2); Total Protein 7.1 g/dL (6.6-8.7)
--- NOTE | 2019-10-21 09:52 | P.ANESASSM_ITS ---
Pre-Anesthetic Assessment Pre-Anesthetic Assessment: Height/Weight: Height 1.63 m Weight 122.924 kg Temp Pulse Resp BP Pulse Ox 97.4 F L 72 18 181/95 97 10/21/19 09:10 10/21/19 09:10 10/21/19 09:10 10/21/19 09:10 10/21/19 09:10 Preop Diagnosis: Left carpal tunnel syndrome Proposed Procedure: Operation Date: 10/21/19 10:30 Proposed Procedures p Carpal Tunnel Release 94619 G56.02(Left) - Mildred Florence MD Familial anesthetic complications: Slow to wake up Was Beta Lisa taken within 24 hours: Yes Last intake: Intake Last Liquid Date 10/21/19 Last Liquid Time 22:00 Last Solid Date 10/20/19 Last Solid Time 20:00 Social: Social History: No alcohol and No tobacco Exam: Pre-Anes Outpt Exam: alert, oriented x 3, clear to auscultation bilaterally and regular rate & rhythm Airway: Cervical ROM: WNL MP: 2 Dentition: False CV/HEM: CV/HEM: Afib, HTN and PVD Metabolic: Metabolic: Morbid obesity Comments: pre DM Anesthetic Plan: ASA status: 2 Anesthesia: MAC and Regional (specify below) Risk of > 500 ml blood loss (7ml/kg in children): No Meds/Allergies Current Medications: Current Medications Generic Name Dose Route Start Last Admin Trade Name Freq PRN Reason Stop Dose Admin Sodium Chloride 1,000 mls @ 30 ml s/hr 10/21/19 09:15 10/21/19 09:32 Sodium Chloride 0.9% IV 10/22/19 09:14 30 mls/hr .Q24H KIMBERLY Administration PFSH Anesthesia PFSH: Medical History Acquired lymphedema Anxiety and depression Chronic pain Dysphagia Familial tremor Hypertension Varicose veins of bilateral lower extremities with pain Venous insufficiency Surgical History History of carpal tunnel surgery of right wrist History of tonsillectomy and adenoidectomy Hx of appendectomy Hx of cholecystectomy Hx of hysterectomy Hx of tubal ligation Status post excision of skin lesion, follow-up exam Family History Mother Chronic kidney disease (CKD) Clotting disorder Dementia Family history of premature coronary artery disease Hypertension Psychiatric illness Sister Chronic kidney disease (CKD) Diabetes Family history of premature coronary artery disease Hyperlipidemia Hypertension Lung disease Father Dementia Family history of premature coronary artery disease Hyperlipidemia Hypertension Grandmother Diabetes Hypertension Grandfather Psychiatric illness Other CAD (coronary artery disease) Stroke Social History Smoking and tobacco status: never smoked Second hand smoke exposure: No Smoking risk assessment/counseling performed?: Yes Tobacco counseling given: counseling >3 minutes Alcohol intake: never Counseling given: Yes Data Anesthesia CBC & Chem 7: 10/21/19 09:28 10/21/19 09:28 Other Labs: Laboratory Results - last 48 hr 10/21/19 10/21/19 09:28 09:28 WBC 9.0 RBC 4.99 Hgb 13.7 Hct 41.2 MCV 82.6 MCH 27.5 L MCHC 33.3 RDW 13.5 Plt Count 250 MPV 10.7 H Neut % (Auto) 67.2 Lymph % (Auto) 16.4 [place] % (Auto) 8.9 Eos % (Auto) 6.1 Baso % (Auto) 1.0 Neut # (Auto) 6.02 Lymph # (Auto) 1.5 [place] # (Auto) 0.8 Eos # (Auto) 0.6 Baso # (Auto) 0.1 Nucleated RBC % (auto) 0 Nucleated RBCs # 0.0 Anion Gap 15.6 Calcium 9.6 Total Bilirubin 0.4 AST 23 ALT 25 Alkaline Phosphatase 77 Total Protein 7.1 Albumin 4.2 Globulin 2.9 Cardiac Studies: No Data to Display
[2019-10-21 09:54] LABS: Potassium 2.6 mmol/L (3.5-5.1)
--- NOTE | 2019-10-21 09:59 | ECG_ITS ---
[facility] Test Date: 2019-10-21 Pat Name: Alexia Kang Department: Room: Gender: Female Bioinformatics Technician: : 1955 Requested By: Charisse Whitfield Order Number: [id number] Kasie MD: Jonny Elliott M.D. Measurements Intervals [place] Rate: 67 P: 30 WV: 169 QRS: 23 QRSD: 97 T: 7 QT: 427 QTc: 453 Interpretive Statements SINUS RHYTHM WITH OCCASIONAL ECTOPIC PREMATURE COMPLEXES INFERIOR MYOCARDIAL INFARCTION [40+ ms Q WAVE AND/OR ST/T ABNORMALITY IN II/aVF], PROBABLY OLD No previous ECG available for comparison Electronically Signed On 10-21-2019 14:22:56 CDT by Jonny Elliott M.D. [id number]
--- NOTE | 2019-10-21 10:04 | SUR.PREOP ---
1000 Dr. Willingham, anesthesia, and Dr. Florence, surgeon, notified of potassium level 2.6. Orders received.
[2019-10-21] MEDS: vancomycin 1,000 MG in sodium chloride 0.9% 250 ML 250 MG IV (10:26)
[2019-10-21 11:19] VITALS: BP 111/64; PULSE 62; RESP 18; TEMP 36.3; O2SAT 94
--- NOTE | 2019-10-21 11:35 | P.OP_ITS ---
Operative Report Date of procedure: October 21, 2019 Pre-op Diagnosis: Left carpal tunnel syndrome Post-op diagnosis: same Procedure Done: Left carpal tunnel release Pathology: none sent Surgeon: Mildred Florence Tubing Machine Operator: None Anesthesia: MAC (With [place] block) Estimated blood loss (mL): 0 Tourniquet time (min): 32 Tourniquet time: At 250 mmHg IV fluids (mL): 600 Urine output (mL): 0 Urine output: No Bravo Complications: None Findings: Compression across the median nerve Condition: stable Disposition: same day Brief History: This 63-year-old woman presented with symptoms consistent with carpal tunnel syndrome. Risks and complications were discussed with the patient. She did wish to proceed with carpal tunnel release that she felt that her symptoms were worsening and interfering with her activities of daily living. Risks and complications were discussed and consents were signed. Questions were answered. Procedure: The patient was brought to the operating theater. The patient had a Allen block with MAC. The tourniquet was elevated to 250 mmHg for a total tourniquet time of 32 minutes. The patient was also given vancomycin 1 g preoperatively. The arm was then prepped and draped with DuraPrep in usual fashion with the arm draped free. A surgical pause was performed. At the time, the surgical pause, we confirmed the site and side of surgery. We also confirmed the patient's identity, appropriate and timely administration of preoperative antibiotics and preoperative surgical markings. An incision was then made along the thenar crease. The incision crossed the wrist joint in a curvilinear fashion. Dissection continued through skin and soft tissues using a scalpel. The palmaris longus was identified along with the transverse carpal ligament. Each of these was released carefully to avoid injury to the median nerve. We were able to dissect gently into the carpal canal which was noted to be quite tight with significant compression across the median nerve. The nerve was visualized and was an hourglass shape. The canal was subsequently palpated to assure there was no bony encroachment upon the canal. There was a quite thickened fibrous tissue within the canal, and this was opened longitudinally as well. The canal was then palpated distally and proximally to assure that my small finger was passed easily without impingement. Finding this to be so, attention was directed to closure. The wound was irrigated with ropivacaine plain. It was then closed with 3-0 nylon in an interrupted mattress fashion. Sterile dressing was then placed consisting of Xeroform gauze, fluffed fluffs, sterile soft roll, a volar splint, and an Joshua wrap. The tourniquet was released after 32 minutes. There were no complications. There were no specimens. The procedure was well tolerated. Plan is the patient will be discharged home. Associated Problem List Diagnoses (1) Left carpal tunnel syndrome:
[2019-10-21 11:52] VITALS: BP 110/56; PULSE 60; RESP 18; O2SAT 90
[2019-10-21 12:40] VITALS: BP 102/51; PULSE 63; RESP 18; O2SAT 94
--- NOTE | 2019-10-21 13:50 | ANE.PACU2 ---
Inpatient post-anesthesia follow up: Airway intact: Yes Vital signs: Temperature 97.3 F Pulse Rate 63 Respiratory Rate 18 Blood Pressure 102/51 Pulse Oximetry 94 Oxygen Delivery Me thod Room Air Oxygen Flow Rate Fraction of Inspir ed Oxygen Hydration adequate: Yes Nausea and vomiting: No Pain level: 1 Mental status: Baseline
== END 2019-10-21 13:16 | disposition home or self-care (01) ==
PROVIDERS: PCP Family Medicine; Visit Provider Specialist
PROC: (CPT 64721; principal; 2019-10-21 11:35)
DX: G56.02 Carpal tunnel syndrome, left upper limb (principal); I48.91 Unspecified atrial fibrillation; I10 Essential (primary) hypertension; I73.9 Peripheral vascular disease, unspecified; E66.01 Morbid (severe) obesity due to excess calories; R73.03 Prediabetes; F41.9 Anxiety disorder, unspecified; F32.9 Major depressive disorder, single episode, unspecified; G89.29 Other chronic pain
CPT/HCPCS: 64721; 12345; 36415; 80053; 85025; 93005; 93010; 96365; 97760; J0131; J2704; J3010; J3370; J3480; J3490; J7030; J7050; L3908

== ENCOUNTER → 2019-10-24 09:13 | Outpatient (BNVA) | payer MEDICARE, MEDICAID, SELFPAY | PROVIDERS: PCP Family Medicine; Visit Provider Internal Medicine Cardiovascular Disease | DX: E87.6 Hypokalemia (principal) | CPT/HCPCS: 80048 ==

== ENCOUNTER 2019-10-26 10:05 | Outpatient (CLI) | payer MEDICARE, MEDICAID, SELFPAY | END 2019-10-26 10:06 | disposition home or self-care (01) | LOC: WOUND 10:06 | PROVIDERS: PCP Family Medicine; Visit Provider Nurse Practitioner Family | DX: I87.2 Venous insufficiency (chronic) (peripheral) (principal); L97.822 Non-pressure chronic ulcer of other part of left lower leg with fat layer exposed | CPT/HCPCS: 99212; A6545 ==

== ENCOUNTER 2019-11-02 09:23 | Outpatient (CLI) | payer MEDICARE, MEDICAID, SELFPAY | END 2019-11-02 09:24 | disposition home or self-care (01) | LOC: WOUND 09:24 | PROVIDERS: PCP Family Medicine; Visit Provider Emergency Medicine | DX: Z09 Encounter for follow-up examination after completed treatment for conditions other than malignant neoplasm (principal) | CPT/HCPCS: 99212 ==

== ENCOUNTER 2019-11-09 09:05 | Outpatient (CLI) | payer MEDICARE, MEDICAID, SELFPAY | END 2019-11-09 09:06 | disposition home or self-care (01) | LOC: WOUND 09:07 | PROVIDERS: PCP Family Medicine; Visit Provider Emergency Medicine | DX: Z09 Encounter for follow-up examination after completed treatment for conditions other than malignant neoplasm (principal) | CPT/HCPCS: 99212; A6545 ==

== ENCOUNTER → 2019-11-30 08:08 | Outpatient (BNVA) | payer MEDICARE, MEDICAID, SELFPAY | PROVIDERS: PCP Family Medicine; Visit Provider Psychiatry & Neurology Psychiatry | DX: F33.2 Major depressive disorder, recurrent severe without psychotic features (principal); F41.1 Generalized anxiety disorder | CPT/HCPCS: 99213 ==

== ENCOUNTER 2019-12-20 17:43 | Emergency (ER) | payer MEDICARE, MEDICAID, SELFPAY ==
[2019-12-20] VITALS (8 sets, daily range): BP systolic 144–205; BP diastolic 43–77; PULSE 82–100; RESP 18–28; TEMP 37.3–37.4; O2SAT 92–97; BMI 48.0
--- NOTE | 2019-12-20 17:57 | CTR_ITS ---
PROCEDURE INFORMATION: Exam: CT Lumbar Spine Without Contrast Exam date and time: 12/20/2019 7:23 PM Age: 63 years old Clinical indication: Injury or trauma; Fall; Blunt trauma (contusions or hematomas) TECHNIQUE: Imaging protocol: Computed tomography images of the lumbar spine without contrast. Radiation optimization: All CT scans at this facility use at least one of these dose optimization techniques: automated exposure control; mA and/or kV adjustment per patient size (includes targeted exams where dose is matched to clinical indication); or iterative reconstruction. COMPARISON: No relevant prior studies available. RADIATION DOSE METRICS: Total DLP (mGy-cm): 2798.5 FINDINGS: Vertebrae: Moderate to severe multilevel spine degenerative changes including degenerative disc disease, spondylosis and facet degenerative changes. Discs/Spinal canal/Neural foramina: No significant disc protrusion. No severe spinal canal stenosis. No significant neural foraminal narrowing. Vasculature: Calcification of the abdominal aorta and/or iliac arteries consistent with atherosclerotic vessel disease. Soft tissues: Unremarkable. Other findings: Examination is limited secondary to motion artifact. CT/CT lumbar spine wo con* [id number] IMPRESSION: No acute findings. Radiation Dose CTDIVOL = (mGy): DLP = 2798.5 (mGy-cm)
--- NOTE | 2019-12-20 17:57 | XRR_ITS ---
PROCEDURE INFORMATION: Exam: XR Left Wrist Exam date and time: 12/20/2019 6:20 PM Age: 63 years old Clinical indication: Pain and injury or trauma; Fall; Blunt trauma (contusions or hematomas); Wrist; Left; Injury date: 12/17/19; Prior surgery; Surgery type: Carpal tunnel; Additional info: Fall, pain TECHNIQUE: Imaging protocol: XR Left wrist. Views: 3 or more views. COMPARISON: CR XR hand LT min 3V* [id number] 10/05/2019 2:07 PM FINDINGS: Bones/joints: No acute fracture. No dislocation. Soft tissues: Normal. XR/XR wrist LT min 3V* [id number] IMPRESSION: No acute findings.
--- NOTE | 2019-12-20 18:13 | ECG_ITS ---
[facility] Test Date: 2019-12-20 Pat Name: Alexia Kang Department: Room: Gender: Female Senior Benefits Specialist: : 1955 Requested By: Lela Morales Order Number: [id number] Kasie MD: Jonny Elliott M.D. Measurements Intervals [place] Rate: 92 P: 24 IA: 161 QRS: 20 QRSD: 87 T: 35 QT: 377 QTc: 467 Interpretive Statements SINUS RHYTHM Compared to ECG 10/21/2019 10:00:00 No significant changes Electronically Signed On 12-22-2019 20:37:34 CDT by Jonny Elliott M.D. [id number]
--- NOTE | 2019-12-20 18:13 | XRR_ITS ---
PROCEDURE INFORMATION: Exam: XR Chest, 1 View Exam date and time: 12/20/2019 6:24 PM Age: 63 years old Clinical indication: Shortness of breath; Additional info: SOB, covid R/O TECHNIQUE: Imaging protocol: XR of the chest Views: 1 view. COMPARISON: No relevant prior studies available. FINDINGS: Lungs: No consolidation. Pleural space: No pleural effusion. No pneumothorax. Heart/Mediastinum: No cardiomegaly. Bones/joints: No acute fracture. XR/XR chest 1V portable [id number] IMPRESSION: No acute findings.
[2019-12-20 18:58] LABS: Basophils % 0.3 %; Eosinophils % 0.3 %; Hematocrit 36.8 % (37.0-47.0); Hemoglobin 11.8 g/dL (11.5-15.3); Lymphocytes # 0.4 10^3/uL (0.8-4.8); Lymphocytes % 2.6 %; Mean Corpuscular HGB Conc 32.1 g/dL (30.0-36.0); Mean Corpuscular Hemoglobin 26.9 pg (28.0-34.0); Mean Platelet Volume 11.5 fL (7.4-10.4); Monocytes # 0.3 10^3/uL (0.2-0.9); Monocytes % 1.9 %; Neutrophils # 14.84 10^3/uL (1.8-7.7); Neutrophils % 94.3 %; Nucleated Red Blood Cells % 0 %; Platelet Count 185 10^3/cmm (130-400); Red Blood Count 4.38 10^6/uL (4.1-5.3); Red Cell Distribution Width 13.7 % (12.1-15.1); White Blood Count 15.7 10^3/uL (4.0-10.0)
[2019-12-20] MEDS: ondansetron 2 mg/ML SDV 2 mL 4 MG IVP (19:14)
[2019-12-20] MEDS: morphine 4 mg/mL SDV 1 mL IVP (19:14)
[2019-12-20 19:22] LABS: Troponin T (5th) Once 70 ng/L (0-10)
[2019-12-20 19:23] LABS: D Dimer 2.22 ug/mIFEU (0-0.59); Fibrinogen 564 mg/dL (174-498); INR 1.25 (0.8-1.2)
[2019-12-20 19:30] LABS: NT Pro B Type Natriuretic Pept 568 pg/mL (0-125); Procalcitonin 7.22 ng/mL (0-0.5)
--- NOTE | 2019-12-20 19:39 | ED_ITS ---
HPI - SOB/Dyspnea General: Chief Complaint: Shortness of Breath/Dyspnea Stated Complaint: SOB, FEVER, FELL ON Thursday12.18.2019 Time Seen by Provider: 12/20/19 17:48 History of Present Illness: HPI Narrative: This patient is a 63-year-old female who presents with multiple complaints. Her first complaint is pain. She apparently fell a few days ago landing on her butt. She also put her left arm back to catch her self. She had surgery a few months ago on the left arm for carpal tunnel release and is concerned about an injury there. She also complains of shortness of breath and cough. Not sure if she has had a fever. She has had shaking chills twice, once last night and once this afternoon. She has had a little bit of diarrhea no vomiting. During my exam she is shaking and seems distracted from providing history. MD elicited complaint: shortness of breath and cough Associated symptoms: Reports extremity pain; Deny abdominal pain, chest pain, fever(s), nausea or vomiting Review of Systems General: Reports: 10 or more systems reviewed and unremarkable except in HPI and below Const: Reports: chills, fatigue and malaise; Denies: fever(s) Eyes: Denies: change in vision ENMT: Denies: odynophagia Card: Denies: chest pain or swelling of feet/ankles Resp: Reports: dyspnea and non-productive cough; Denies: productive cough GI: Denies: abdominal pain, nausea or vomiting : Denies: flank pain or difficulty voiding Musc: Reports: back pain and extremity pain; Denies: neck pain Skin/Breast: Denies: rash Neuro: Denies: headache(s), numbness in extremities or weakness in extremities Enzo/Lymph: Denies: easy bruising or easy bleeding PFSH ED PFSH: Medical History Anxiety and depression Chronic pain CKD (chronic kidney disease) stage 3, GFR 30-59 ml/min Diabetes Edema Familial tremor Goiter Hypertension Morbid obesity with BMI of 45.0-49.9, adult Trigger finger, right ring finger Ulcer Varicose veins of bilateral lower extremities with pain Venous insufficiency Venous ulcer Surgical History History of carpal tunnel surgery of right wrist History of tonsillectomy and adenoidectomy Hx of appendectomy Hx of cholecystectomy Hx of hysterectomy Hx of tubal ligation Status post excision of skin lesion, follow-up exam Family History Mother Chronic kidney disease (CKD) Clotting disorder Dementia Family history of premature coronary artery disease Hypertension Psychiatric illness Sister Chronic kidney disease (CKD) Diabetes Family history of premature coronary artery disease Hyperlipidemia Hypertension Lung disease Father Dementia Family history of premature coronary artery disease Hyperlipidemia Hypertension Grandmother Diabetes Hypertension Grandfather Psychiatric illness Other CAD (coronary artery disease) Stroke Social History Smoking and tobacco status: never smoked Second hand smoke exposure: No Smoking risk assessment/counseling performed?: Yes Tobacco counseling given: counseling >3 minutes Alcohol intake: never Counseling given: Yes Physical Exam Const: COMMON NORMALS: patient oriented x3, no limitations and alert GENERAL APPEARANCE: cooperative and anxious NUTRITIONAL APPEARANCE: obese morbidly obese HENMT: HEAD & SCALP: normal to inspection FACE & SINUS: normal facial exam Eye: GENERAL EYE: appearance normal, both eyes and all related structures Neck/C-Spine: COMMON NORMALS: supple, no meningeal signs and no JVD Chest: COMMONS NORMALS: normal inspection of the chest Resp: COMMON NORMALS: normal respiratory effort, No use of accessory muscles and clear to auscultation bilaterally AUSCULTATION: clear to auscultation bilaterally Cardio: COMMON NORMALS: no JVD, regular rate, regular rhythm and No murmurs present (Cardio) RATE: regular rate RHYTHM: regular rhythm GI: COMMON NORMALS: Normal to inspection, nondistended, normoactive bowel sounds present, Soft to palpation and non-tender INSPECTION: Yes normal to inspection AUSCULTATION: Yes normoactive bowel sounds PALPATION: Yes Soft to palpation Back/Pelvis: THORACIC SPINE/UPPER BACK: Yes normal to inspection and Yes thoracic ROM normal LUMBAR SPINE/LOWER BACK: Yes ROM limited, Yes pain with ROM, Yes lumbar spinal tenderness (diffuse lumbar region) and Yes paraspinal muscle tenderness Extremity: GENERAL: Yes normal exam except as noted LEFT UPPER EXTREMITY: Yes wrist (diffuse tenderness, healing incision) Neuro: COMMON NORMALS: patient oriented x3, moves all extremities, no focal motor deficits and no sensory deficits noted SENSORIUM/ORIENTATION: Yes alert MENINGEAL SIGNS: Yes no meningeal signs Psych: COMMON NORMALS: mental status grossly normal, cooperative and normal affect Skin: COMMON NORMALS: no rashes or lesions noted and turgor normal GENERAL SKIN EXAM: no rashes or lesions noted and turgor normal Course ED course: Negative work-up regarding the trauma of her fall. She did have a urinary tract infection and endorsed having symptoms consistent with that. We will start her on antibiotics and have her follow-up with her primary care doctor. Vital Signs: Vital signs: Vital Signs Temperature 99.1 F 12/20/19 21:35 Pulse Rate 92 12/20/19 21:35 Respiratory Rate 22 H 12/20/19 21:35 Blood Pressure 144/63 12/20/19 21:35 Pulse Oximetry 92 12/20/19 21:35 MDM - SOB/Dyspnea Lab Data: Labs: Lab Results 12/20/19 12/20/19 12/20/19 Range/Units 18:31 18:31 18:31 WBC 15.7 H (4.0-10.0) 10^3/ uL RBC 4.38 (4.1-5.3) 10^6/u L Hgb 11.8 (11.5-15.3) g/dL Hct 36.8 L (37.0-47.0) % MCV 84.0 (81-99) fL MCH 26.9 L (28.0-34.0) pg MCHC 32.1 (30.0-36.0) g/dL RDW 13.7 (12.1-15.1) % Plt Count 185 (130-400) 10^3/c mm MPV 11.5 H (7.4-10.4) fL Neut % (Auto) 94.3 % Lymph % (Auto) 2.6 % Fillmore % (Auto) 1.9 % Eos % (Auto) 0.3 % Baso % (Auto) 0.3 % Neut # (Auto) 14.84 H (1.8-7.7) 10^3/u L Lymph # (Auto) 0.4 L (0.8-4.8) 10^3/u L Fillmore # (Auto) 0.3 (0.2-0.9) 10^3/u L Eos # (Auto) 0.0 (0.0-0.8) 10^3/u L Baso # (Auto) 0.0 (0.0-0.1) 10^3/u L Nucleated RBC % (a uto) 0 % Nucleated RBCs # 0.0 /100WBC PT 16.10 H (12.1-14.9) SECO NDS INR 1.25 H (0.8-1.2) Fibrinogen 564 H (174-498) mg/dL D-Dimer 2.22 H (0-0.59) ug/mIFE U Sodium 130 L (136-145) mmol/L Potassium 3.9 (3.5-5.1) mmol/L Chloride 93 L (98-107) mmol/L Carbon Dioxide 23 (22-29) mmol/L Anion Gap 17.9 (5-19) BUN 26 H (8-23) mg/dL Creatinine 1.1 H (0.5-0.9) mg/dL GFR Calculation 50.3 L (90-130) mL/min Glucose 170 H (65-115) mg/dL Calculated Osmolal ity 279 L (285-295) mOsm/k g Lactic Acid (0.5-2.2) mmol/L Calcium 8.6 (8.5-10.5) mg/dL Ferritin 132 (15-150) ng/mL Total Bilirubin 0.4 (0.15-1.2) mg/dL AST 15 (0-32) U/L ALT 16 (0-33) U/L Alkaline Phosphata se 84 (35-105) IU/L Lactate Dehydrogen ase 210 (135-214) U/L Troponin T Gen 5 n g/L (0-10) ng/L C-Reactive Protein 235.3 H (0.0-4.9) mg/L NT-Pro-B Natriuret Pep 568 H (0-125) pg/mL Total Protein 6.8 (6.6-8.7) g/dL Albumin 3.8 (3.5-5.2) g/dL Globulin 3.0 (1.3-4.6) g/dL Procalcitonin 7.22 H (0-0.5) ng/mL Urine Color (Yellow) Urine Appearance (CLEAR) Urine pH (5-7) Ur Specific Gravit y (1.005-1.030) Urine Protein (Negative) Urine Glucose (UA) (Normal) Urine Ketones (Negative) Urine Blood (Negative) Urine Nitrate (Negative) Urine Bilirubin (Negative) Urine Urobilinogen (Negative) mg/dL Ur Leukocyte Odette ase (Negative) Urine RBC (0-2) /hpf Urine WBC (0-5) /hpf Ur Squamous Epith Cells (0-5) /hpf Amorphous Sediment Urine Bacteria (NONE) /hpf SARS-CoV-2 Ag (Rap id) (Negative) 12/20/19 12/20/19 12/20/19 Range/Units 18:31 18:31 19:10 WBC (4.0-10.0) 10^3/ uL RBC (4.1-5.3) 10^6/u L Hgb (11.5-15.3) g/dL Hct (37.0-47.0) % MCV (81-99) fL MCH (28.0-34.0) pg MCHC (30.0-36.0) g/dL RDW (12.1-15.1) % Plt Count (130-400) 10^3/c mm MPV (7.4-10.4) fL Neut % (Auto) % Lymph % (Auto) % Fillmore % (Auto) % Eos % (Auto) % Baso % (Auto) % Neut # (Auto) (1.8-7.7) 10^3/u L Lymph # (Auto) (0.8-4.8) 10^3/u L Fillmore # (Auto) (0.2-0.9) 10^3/u L Eos # (Auto) (0.0-0.8) 10^3/u L Baso # (Auto) (0.0-0.1) 10^3/u L Nucleated RBC % (a uto) % Nucleated RBCs # /100WBC PT (12.1-14.9) SECO NDS INR (0.8-1.2) Fibrinogen (174-498) mg/dL D-Dimer (0-0.59) ug/mIFE U Sodium (136-145) mmol/L Potassium (3.5-5.1) mmol/L Chloride (98-107) mmol/L Carbon Dioxide (22-29) mmol/L Anion Gap (5-19) BUN (8-23) mg/dL Creatinine (0.5-0.9) mg/dL GFR Calculation (90-130) mL/min Glucose (65-115) mg/dL Calculated Osmolal ity (285-295) mOsm/k g Lactic Acid 2.3 H (0.5-2.2) mmol/L Calcium (8.5-10.5) mg/dL Ferritin (15-150) ng/mL Total Bilirubin (0.15-1.2) mg/dL AST (0-32) U/L ALT (0-33) U/L Alkaline Phosphata se (35-105) IU/L Lactate Dehydrogen ase (135-214) U/L Troponin T Gen 5 n g/L 70 H (0-10) ng/L C-Reactive Protein (0.0-4.9) mg/L NT-Pro-B Natriuret Pep (0-125) pg/mL Total Protein (6.6-8.7) g/dL Albumin (3.5-5.2) g/dL Globulin (1.3-4.6) g/dL Procalcitonin (0-0.5) ng/mL Urine Color (Yellow) Urine Appearance (CLEAR) Urine pH (5-7) Ur Specific Gravit y (1.005-1.030) Urine Protein (Negative) Urine Glucose (UA) (Normal) Urine Ketones (Negative) Urine Blood (Negative) Urine Nitrate (Negative) Urine Bilirubin (Negative) Urine Urobilinogen (Negative) mg/dL Ur Leukocyte Odette ase (Negative) Urine RBC (0-2) /hpf Urine WBC (0-5) /hpf Ur Squamous Epith Cells (0-5) /hpf Amorphous Sediment Urine Bacteria (NONE) /hpf SARS-CoV-2 Ag (Rap id) Negative (Negative) 12/20/19 Range/Units 19:41 WBC (4.0-10.0) 10^3/ uL RBC (4.1-5.3) 10^6/u L Hgb (11.5-15.3) g/dL Hct (37.0-47.0) % MCV (81-99) fL MCH (28.0-34.0) pg MCHC (30.0-36.0) g/dL RDW (12.1-15.1) % Plt Count (130-400) 10^3/c mm MPV (7.4-10.4) fL Neut % (Auto) % Lymph % (Auto) % Fillmore % (Auto) % Eos % (Auto) % Baso % (Auto) % Neut # (Auto) (1.8-7.7) 10^3/u L Lymph # (Auto) (0.8-4.8) 10^3/u L Fillmore # (Auto) (0.2-0.9) 10^3/u L Eos # (Auto) (0.0-0.8) 10^3/u L Baso # (Auto) (0.0-0.1) 10^3/u L Nucleated RBC % (a uto) % Nucleated RBCs # /100WBC PT (12.1-14.9) SECO NDS INR (0.8-1.2) Fibrinogen (174-498) mg/dL D-Dimer (0-0.59) ug/mIFE U Sodium (136-145) mmol/L Potassium (3.5-5.1) mmol/L Chloride (98-107) mmol/L Carbon Dioxide (22-29) mmol/L Anion Gap (5-19) BUN (8-23) mg/dL Creatinine (0.5-0.9) mg/dL GFR Calculation (90-130) mL/min Glucose (65-115) mg/dL Calculated Osmolal ity (285-295) mOsm/k g Lactic Acid (0.5-2.2) mmol/L Calcium (8.5-10.5) mg/dL Ferritin (15-150) ng/mL Total Bilirubin (0.15-1.2) mg/dL AST (0-32) U/L ALT (0-33) U/L Alkaline Phosphata se (35-105) IU/L Lactate Dehydrogen ase (135-214) U/L Troponin T Gen 5 n g/L (0-10) ng/L C-Reactive Protein (0.0-4.9) mg/L NT-Pro-B Natriuret Pep (0-125) pg/mL Total Protein (6.6-8.7) g/dL Albumin (3.5-5.2) g/dL Globulin (1.3-4.6) g/dL Procalcitonin (0-0.5) ng/mL Urine Color Yellow (Yellow) Urine Appearance Clear (CLEAR) Urine pH 5 (5-7) Ur Specific Gravit y 1.015 (1.005-1.030) Urine Protein Neg (Negative) Urine Glucose (UA) Norm (Normal) Urine Ketones Negative (Negative) Urine Blood Neg (Negative) Urine Nitrate Positive H (Negative) Urine Bilirubin Neg (Negative) Urine Urobilinogen Norm (Negative) mg/dL Ur Leukocyte Odette ase Negative (Negative) Urine RBC 0-4 H (0-2) /hpf Urine WBC 0-4 H (0-5) /hpf Ur Squamous Epith Cells 5-10 H (0-5) /hpf Amorphous Sediment Not Reportable Urine Bacteria Trace (NONE) /hpf SARS-CoV-2 Ag (Rap id) (Negative) Discharge Plan Discharge Patient Disposition: Home Clinical Impression: Acute pain of left wrist Urinary tract infection Qualifiers: Urinary tract infection type: site unspecified Hematuria presence: without hematuria Qualified Code(s): N39.0 - Urinary tract infection, site not specified Back pain Qualifiers: Back pain location: low back pain Chronicity: acute Back pain laterality: unspecified Sciatica presence: without sciatica Qualified Code(s): M54.5 - Low back pain Condition: Stable Prescriptions: New hydrocodone-acetaminophen 5-325 mg tablet 1 tab PO Q4H PRN (Reason: pain) Qty: 10 RF: 0 cefdinir 300 mg capsule 300 mg PO BID 10 Days Qty: 20 RF: 0 No Action (DME) CPAP mask Qty: 1 RF: 0 aspirin 325 mg tablet 325 mg PO QDAY RF: 0 Hold Instructions: Resume on 07/12/19. naproxen 500 mg tablet 500 mg PO BID PRN (Reason: pain) 30 Days Qty: 60 RF: 2 Hold Instructions: Resume on 07/12/19. potassium chloride 20 mEq packet 40 meq PO BID RF: 0 bupropion HCl [Wellbutrin XL] 300 mg tablet extended release 24 hr 300 mg PO QAM Qty: 30 RF: 2 buspirone 10 mg tablet 10 mg PO QDAY Qty: 30 RF: 2 hydroxyzine HCl 50 mg tablet 50 mg PO BID PRN (Reason: anxiety) Qty: 60 RF: 2 paroxetine HCl [Paxil] 20 mg tablet 20 mg PO QDAY Qty: 30 RF: 2 lisinopril 10 mg tablet 10 mg PO DAILY Qty: 30 RF: 3 metformin 500 mg tablet 500 mg PO DAILY Qty: 30 RF: 3 isosorbide mononitrate 30 mg tablet extended release 24 hr 15 mg PO BID 90 Days Qty: 90 RF: 3 amlodipine 5 mg tablet 5 mg PO QDAY 90 Days Qty: 90 RF: 3 metoprolol succinate 25 mg tablet extended release 24 hr 25 mg PO BID 90 Days Qty: 180 RF: 3 bumetanide 2 mg tablet 2 mg PO BID 90 Days Qty: 180 RF: 3 Discharge Orders: Discharge Order (Routine); Ordered 12/20/19 Ordered By: Lela Brown Referrals: Gabino Christine MD [Primary Care Provider] - Discharge Diet: Usual diet Discharge Activity: Resume usual activity Patient Instructions: Wrist Injury (ED), Urinary Tract Infection in Women (ED), Acute Low Back Pain (ED) Activity Restrictions/Additional Instructions: Follow-up with the surgeon who did her carpal tunnel surgery to let them know that you fell on the wrist. The x-rays look okay today. Follow-up with your primary care doctor in 1 to 2 weeks to make sure that the urinary tract infection has cleared. Use the pain medicine only as needed. Take the antibiotics exactly as prescribed and until all gone. Return to the emergency room if new or worse symptoms occur. Discharge Date/Time: 12/20/19 21:30 Coding Level of Care Code ED Photographic Technician for Adelina Fwkaci Exam Comprehensive
[2019-12-20 19:41] LABS: Alanine Aminotransferase 16 U/L (0-33); Albumin Level 3.8 g/dL (3.5-5.2); Alkaline Phosphatase 84 IU/L (35-105); Anion Gap 17.9 (5-19); Aspartate Amino Transferase 15 U/L (0-32); Blood Urea Nitrogen 26 mg/dL (8-23); C Reactive Protein 235.3 mg/L (0.0-4.9); Calcium 8.6 mg/dL (8.5-10.5); Carbon Dioxide 23 mmol/L (22-29); Chloride 93 mmol/L (98-107); Ferritin 132 ng/mL (15-150); Glomerular Filtration Rate 50.3 mL/min (90-130); Glucose 170 mg/dL (65-115); Lactate Dehydrogenase 210 U/L (135-214); Osmolality Calculated 279 mOsm/kg (285-295); Potassium 3.9 mmol/L (3.5-5.1); Sodium 130 mmol/L (136-145); Total Bilirubin 0.4 mg/dL (0.15-1.2); Total Protein 6.8 g/dL (6.6-8.7)
[2019-12-20 19:42] LABS: SARS Covid-2 Antigen Negative (Negative)
[2019-12-20 20:00] LABS: Urine Appearance Clear (CLEAR); Urine Color Yellow (Yellow)
[2019-12-20 20:01] LABS: Add Urine Microscopic? YES; Bilirubin Urine Neg (Negative); Blood Urine Neg (Negative); Glucose Urine UA Norm (Normal); Ketones Urine Negative (Negative); Leukocyte Esterase Urine Negative (Negative); Nitrate Urine Positive (Negative); Protein Urine Neg (Negative); Specific Gravity, Urine 1.015 (1.005-1.030); Urobilinogen Urine Norm (Negative); pH Urine 5 (5-7)
[2019-12-20 20:02] LABS: Add Urine Culture? Yes; Bacteria Urine TRACE /hpf; RBC Urine 0-4 /hpf (0-2); WBC Urine 0-4 /hpf (0-5)
[2019-12-20 20:05] LABS: Lactic Sepsis W/Reflex 2.3 mmol/L (0.5-2.2)
[2019-12-20 20:39] LABS: Reflex Lactate Order REFLEX LACTIC ORDERD
[2019-12-20] MEDS: cefTRIAXone 1,000 MG in sodium chloride 0.9% (plus) 50 ML 100 MG IV (20:55)
== END 2019-12-20 21:30 | disposition home or self-care (01) ==
PROVIDERS: Emergency Provider Emergency Medicine; PCP Family Medicine
DX: M25.532 Pain in left wrist (principal); N39.0 Urinary tract infection, site not specified; M54.5 Low back pain; Z79.82 Long term (current) use of aspirin; I12.9 Hypertensive chronic kidney disease with stage 1 through stage 4 chronic kidney disease, or unspecified chronic kidney disease; E11.22 Type 2 diabetes mellitus with diabetic chronic kidney disease; N18.30 Chronic kidney disease, stage 3 unspecified
CPT/HCPCS: 12345; 71045; 72131; 73110; 80053; 81001; 82728; 83605; 83615; 83880; 84145; 84484; 85025; 85378; 85384; 85610; 86140; 87077; 87086; 87186; 87426; 93005; 96365; 96375; 99284; J0696; J2270; J2405

== ENCOUNTER → 2020-03-08 09:20 | Outpatient (BNVA) | payer MEDICARE, MEDICAID, SELFPAY | PROVIDERS: PCP Family Medicine Adult Medicine; Visit Provider Family Medicine | DX: E11.9 Type 2 diabetes mellitus without complications (principal); E66.01 Morbid (severe) obesity due to excess calories; E87.6 Hypokalemia; I50.32 Chronic diastolic (congestive) heart failure; Z68.42 Body mass index [BMI] 45.0-49.9, adult; I11.0 Hypertensive heart disease with heart failure; N18.30 Chronic kidney disease, stage 3 unspecified | CPT/HCPCS: 80048; 80053; 80061; 83036; 84443; 85025 ==

== ENCOUNTER → 2020-04-02 15:47 | Outpatient (BNVA) | payer MEDICARE, MEDICAID, SELFPAY | PROVIDERS: PCP Family Medicine Adult Medicine; Visit Provider Specialist | DX: S63.502A Unspecified sprain of left wrist, initial encounter (principal); X58.XXXA Exposure to other specified factors, initial encounter | CPT/HCPCS: 73110 ==

== ENCOUNTER 2020-05-03 20:00 | Outpatient (CLI) | payer MEDICARE, MEDICAID, SELFPAY | END 2020-05-03 20:01 | disposition home or self-care (01) | LOC: SLEEP 05-04 08:30 | PROVIDERS: PCP Family Medicine Adult Medicine; Visit Provider Family Medicine | DX: G47.33 Obstructive sleep apnea (adult) (pediatric) (principal) | CPT/HCPCS: 95811 ==

== ENCOUNTER → 2020-05-04 07:55 | Outpatient (BNVA) | payer MEDICARE, MEDICAID, SELFPAY | PROVIDERS: PCP Family Medicine Adult Medicine; Visit Provider Psychiatry & Neurology Psychiatry | DX: F41.1 Generalized anxiety disorder (principal); F33.2 Major depressive disorder, recurrent severe without psychotic features | CPT/HCPCS: 99213 ==

== ENCOUNTER → 2020-07-24 08:14 | Outpatient (BNVA) | payer MEDICARE, MEDICAID, SELFPAY | PROVIDERS: PCP Family Medicine Adult Medicine; Visit Provider Psychiatry & Neurology Psychiatry | DX: F40.10 Social phobia, unspecified (principal); F41.1 Generalized anxiety disorder; F33.2 Major depressive disorder, recurrent severe without psychotic features | CPT/HCPCS: 99214 ==

== ENCOUNTER → 2020-08-28 09:01 | Outpatient (BNVA) | payer MEDICARE, MEDICAID, SELFPAY | PROVIDERS: PCP Family Medicine Adult Medicine; Visit Provider Family Medicine Adult Medicine | DX: E66.01 Morbid (severe) obesity due to excess calories; I50.32 Chronic diastolic (congestive) heart failure; Z68.42 Body mass index [BMI] 45.0-49.9, adult; I13.0 Hypertensive heart and chronic kidney disease with heart failure and stage 1 through stage 4 chronic kidney disease, or unspecified chronic kidney disease; E11.22 Type 2 diabetes mellitus with diabetic chronic kidney disease; N18.30 Chronic kidney disease, stage 3 unspecified | CPT/HCPCS: 80053; 80061; 83036; 84443; 85025 ==

== ENCOUNTER → 2020-10-18 07:29 | Outpatient (BNVA) | payer MEDICARE, MEDICAID, SELFPAY | PROVIDERS: PCP Family Medicine Adult Medicine; Visit Provider Psychiatry & Neurology Psychiatry | DX: F41.1 Generalized anxiety disorder (principal); F33.2 Major depressive disorder, recurrent severe without psychotic features | CPT/HCPCS: 99213 ==

== ENCOUNTER → 2021-01-08 11:42 | Outpatient (BNVA) | payer MEDICARE, MEDICAID, SELFPAY | PROVIDERS: PCP Family Medicine Adult Medicine; Visit Provider Family Medicine Adult Medicine | DX: E11.69 Type 2 diabetes mellitus with other specified complication (principal); E66.01 Morbid (severe) obesity due to excess calories; Z68.42 Body mass index [BMI] 45.0-49.9, adult; I10 Essential (primary) hypertension | CPT/HCPCS: 80053; 83036 ==

== ENCOUNTER → 2021-01-17 07:53 | Outpatient (BNVA) | payer MEDICARE, MEDICAID, SELFPAY | PROVIDERS: PCP Family Medicine Adult Medicine; Visit Provider Psychiatry & Neurology Psychiatry | DX: F41.1 Generalized anxiety disorder (principal); F33.2 Major depressive disorder, recurrent severe without psychotic features | CPT/HCPCS: 99214 ==

== ENCOUNTER → 2021-04-23 08:18 | Outpatient (BNVA) | payer MEDICARE, MEDICAID, SELFPAY | PROVIDERS: PCP Family Medicine Adult Medicine; Visit Provider Psychiatry & Neurology Psychiatry | DX: F41.1 Generalized anxiety disorder (principal); F33.2 Major depressive disorder, recurrent severe without psychotic features | CPT/HCPCS: 99213 ==

== ENCOUNTER → 2021-05-30 14:07 | Outpatient (BNVA) | payer MEDICARE, MEDICAID, SELFPAY | PROVIDERS: PCP Family Medicine Adult Medicine; Visit Provider Internal Medicine Cardiovascular Disease | DX: I83.892 Varicose veins of left lower extremity with other complications (principal); I13.0 Hypertensive heart and chronic kidney disease with heart failure and stage 1 through stage 4 chronic kidney disease, or unspecified chronic kidney disease; N18.30 Chronic kidney disease, stage 3 unspecified; E11.22 Type 2 diabetes mellitus with diabetic chronic kidney disease | CPT/HCPCS: 99214 ==

== ENCOUNTER → 2021-08-06 07:23 | Outpatient (BNVA) | payer MEDICARE, MEDICAID, SELFPAY | PROVIDERS: PCP Family Medicine Adult Medicine; Visit Provider Psychiatry & Neurology Psychiatry | DX: F41.1 Generalized anxiety disorder (principal); F33.2 Major depressive disorder, recurrent severe without psychotic features | CPT/HCPCS: 99213 ==

== ENCOUNTER → 2021-08-30 08:21 | Outpatient (BNVA) | payer MEDICARE, MEDICAID, SELFPAY | PROVIDERS: PCP Family Medicine Adult Medicine; Visit Provider Family Medicine Adult Medicine | DX: E11.22 Type 2 diabetes mellitus with diabetic chronic kidney disease (principal); N18.2 Chronic kidney disease, stage 2 (mild); E11.69 Type 2 diabetes mellitus with other specified complication; E66.9 Obesity, unspecified; E78.5 Hyperlipidemia, unspecified; E66.01 Morbid (severe) obesity due to excess calories; Z68.42 Body mass index [BMI] 45.0-49.9, adult; I50.30 Unspecified diastolic (congestive) heart failure | CPT/HCPCS: 80053; 80061; 83036; 84443; 85025 ==

== ENCOUNTER 2021-09-23 09:11 | Outpatient (CLI) | payer MEDICARE, MEDICAID, SELFPAY ==
--- NOTE | 2021-09-23 | USCV_ITS ---
Alexia Kang Age: 65 Gender: F : 1955 Exam Date: 09/23/2021 09:45 Ordering Phys: Angeline Davis MD ([email or web address]) Technologist: Xander Gomez Exam Location: [facility] [place] Indication: HISTORY: PROCEDURES: Bilateral duplex Venous Insufficiency study of the Deep and Superficial systems was carried out according to normal protocol with the patient in supine positon for deep system and dependent position for the superficial system. FINDINGS: All deep veins demonstrated compressibility without evidence of intraluminal thrombus or increased echogenicity. Spectral analysis of Doppler signals demonstrates normal response to compression maneuvers indicating patency without obstruction. Reflux determinations were made with the patient in the dependent position, the weight being on the contralateral leg. THERE IS SIGNIFICANT REFLUX ON THE RT SIDE AT THE LEVEL OF THE SFJ. THE LT GSAPH HAS BEEN ABLATED BELOW THE LT POP. CONCLUSIONS No evidence of DVT in the above-mentioned identifiable veins. Significant venous reflux of greater than 500 ms were noted at the right and left saphenofemoral junctions. The left greater saphenous vein below the knee was found to be ablated No significant reflux were noted in the rest of the greater saphenous vein segments or in the small saphenous vein segments bilaterally. Dr Vivien Rico MD [facility] (Electronically Signed) Final Date: 24 September 2021 20:05 S
== END 2021-09-23 09:12 | disposition home or self-care (01) ==
LOC: RAD 09:12
PROVIDERS: PCP Family Medicine Adult Medicine; Visit Provider Internal Medicine Cardiovascular Disease
DX: I83.892 Varicose veins of left lower extremity with other complications (principal); I87.2 Venous insufficiency (chronic) (peripheral); E11.69 Type 2 diabetes mellitus with other specified complication; E66.9 Obesity, unspecified
CPT/HCPCS: 80053; 83036; 93970

== ENCOUNTER → 2021-10-18 10:19 | Outpatient (BNVA) | payer MEDICARE, SELFPAY | PROVIDERS: PCP Family Medicine Adult Medicine; Visit Provider Obstetrics & Gynecology | DX: N39.41 Urge incontinence (principal) | CPT/HCPCS: 81000 ==

== ENCOUNTER → 2021-12-03 08:55 | Outpatient (BNVA) | payer MEDICARE, MEDICAID, OTHER, SELFPAY | PROVIDERS: PCP Family Medicine Adult Medicine; Visit Provider Podiatrist Foot & Ankle Surgery | DX: I73.9 Peripheral vascular disease, unspecified (principal); L60.3 Nail dystrophy; I83.813 Varicose veins of bilateral lower extremities with pain; E11.22 Type 2 diabetes mellitus with diabetic chronic kidney disease; N18.2 Chronic kidney disease, stage 2 (mild); Z79.84 Long term (current) use of oral hypoglycemic drugs | CPT/HCPCS: 99204 ==

== ENCOUNTER → 2021-12-04 14:05 | Outpatient (BNVA) | payer MEDICARE, MEDICAID, SELFPAY | PROVIDERS: PCP Family Medicine Adult Medicine; Visit Provider Internal Medicine Cardiovascular Disease | DX: I13.0 Hypertensive heart and chronic kidney disease with heart failure and stage 1 through stage 4 chronic kidney disease, or unspecified chronic kidney disease (principal); E11.22 Type 2 diabetes mellitus with diabetic chronic kidney disease; N18.2 Chronic kidney disease, stage 2 (mild); I50.32 Chronic diastolic (congestive) heart failure; I83.813 Varicose veins of bilateral lower extremities with pain; E11.69 Type 2 diabetes mellitus with other specified complication; E66.9 Obesity, unspecified; Z68.41 Body mass index [BMI] 40.0-44.9, adult; E78.5 Hyperlipidemia, unspecified; Z79.84 Long term (current) use of oral hypoglycemic drugs | CPT/HCPCS: 99214 ==

== ENCOUNTER → 2021-12-13 08:41 | Outpatient (BNVA) | payer MEDICARE, MEDICAID, SELFPAY | PROVIDERS: PCP Family Medicine Adult Medicine; Visit Provider Family Medicine Adult Medicine | DX: E11.69 Type 2 diabetes mellitus with other specified complication (principal); E66.9 Obesity, unspecified; E11.22 Type 2 diabetes mellitus with diabetic chronic kidney disease; N18.2 Chronic kidney disease, stage 2 (mild); E78.5 Hyperlipidemia, unspecified | CPT/HCPCS: 80053; 83036 ==

== ENCOUNTER → 2022-03-26 10:50 | Outpatient (BNVA) | payer MEDICARE, MEDICAID, SELFPAY | PROVIDERS: PCP Family Medicine Adult Medicine; Visit Provider Specialist | DX: M65.332 Trigger finger, left middle finger (principal) | CPT/HCPCS: 73130; 99214 ==

== ENCOUNTER → 2022-05-02 10:14 | Outpatient (BNVA) | payer MEDICARE, MEDICAID, SELFPAY | PROVIDERS: PCP Family Medicine Adult Medicine; Visit Provider Nurse Practitioner Family | DX: R00.1 Bradycardia, unspecified (principal); I13.0 Hypertensive heart and chronic kidney disease with heart failure and stage 1 through stage 4 chronic kidney disease, or unspecified chronic kidney disease; E11.22 Type 2 diabetes mellitus with diabetic chronic kidney disease; N18.2 Chronic kidney disease, stage 2 (mild); Z79.84 Long term (current) use of oral hypoglycemic drugs; I50.30 Unspecified diastolic (congestive) heart failure; R00.2 Palpitations | CPT/HCPCS: 36415; 80053; 83880; 85025; 93005; 99214 ==

== ENCOUNTER 2022-05-19 15:00 | Outpatient (CLI) | payer MEDICARE, MEDICAID, SELFPAY ==
--- NOTE | 2022-05-19 15:22 | MR_ITS ---
WS: [id number] INDICATION: Trigger finger pain. History of cancer removal. TECHNIQUE: Axial T1 and axial T2 coronal T1 coronal STIR sagittal T2 and coronal FSE 3-D FINDINGS: Some images degraded by patient motion. Cystic degenerative changes involving the carpal bones. Degenerative narrowing involving the radiocar pal joint. Advanced arthritis 1st CMC and STT. MCP joints are normal. Degenerative narrowing involvin g the PIP and DIP joints. Hypertrophic changes at the DIP joints. Palpable marker overlying the dorsal 3rd/4th finger interspace. No underlying mass or lesion in this location. No cystic or solid lesions. No drainable fluid collections. Evidence of prior carpal tunnel release. No other suspicious findings. MR/MR hand LT wo con* [id number] IMPRESSION: 1. No subcutaneous mass or lesion deep to the palpable marker lower dorsal rojas d. 2. Moderate degenerative narrowing at the radiocarpal joint. Advanced degenera tive changes at the 1st CMC and STT. 3. Cystic changes involving the carpal bones. 4. Mild degenerative narrowing involving the PIP and DIP joints with hypertrop hic changes. 5. Evidence of prior carpal tunnel release. 6. No other suspicious findings.
== END 2022-05-19 15:01 | disposition home or self-care (01) ==
LOC: RAD 15:04
PROVIDERS: PCP Family Medicine Adult Medicine; Visit Provider Specialist
DX: M65.30 Trigger finger, unspecified finger (principal)
CPT/HCPCS: 73218

== ENCOUNTER → 2022-06-11 14:03 | Outpatient (BNVA) | payer MEDICARE, MEDICAID, SELFPAY | PROVIDERS: PCP Family Medicine Adult Medicine; Visit Provider Family Medicine Adult Medicine | DX: E11.69 Type 2 diabetes mellitus with other specified complication (principal); E66.9 Obesity, unspecified; I10 Essential (primary) hypertension; E11.22 Type 2 diabetes mellitus with diabetic chronic kidney disease; N18.2 Chronic kidney disease, stage 2 (mild); E78.5 Hyperlipidemia, unspecified | CPT/HCPCS: 80053; 83036 ==

== ENCOUNTER → 2022-06-18 09:49 | Outpatient (BNVA) | payer MEDICARE, MEDICAID, SELFPAY | PROVIDERS: PCP Family Medicine Adult Medicine; Visit Provider Specialist | DX: M65.332 Trigger finger, left middle finger (principal) | CPT/HCPCS: 99214 ==

== ENCOUNTER 2022-06-20 06:03 | Day surgery (SDC) | payer MEDICARE, MEDICAID, SELFPAY ==
[2022-06-19 11:23] VITALS: BMI 44.6
[2022-06-20 06:37] VITALS: BP 145/78; PULSE 66; RESP 18; TEMP 36.3; O2SAT 95
[2022-06-20 06:54] VITALS: BP 145/78; PULSE 66; RESP 18; TEMP 36.6; O2SAT 96
[2022-06-20] MEDS: acetaminophen 1,000 MG/100 ML PIGGYBACK 400 MG IV (06:59)
[2022-06-20] MEDS: CELEcoxib 200 mg Capsule 400 MG PO (06:59)
[2022-06-20] MEDS: gabapentin 300 mg Capsule PO (06:59)
[2022-06-20] MEDS: sodium chloride 0.9% 1,000 ML 30 ML IV (07:00)
--- NOTE | 2022-06-20 07:07 | W.PM.OPSUD ---
Surgery/Procedure H&P Update DATE OF PROCEDURE: June 20, 2022 DATE H&P PERFORMED: 06/18/22 H&P UPDATE INFORMATION: I have reviewed H&P completed within last 30 days, I have examined patient prior to procedure, No changes to prior documentation and H&P is in [facility] EMR on date indicated PREOP DIAGNOSIS: Left long finger triggering PLANNED PROCEDURE: Operation Date: 06/20/22 07:50 Proposed Procedures p LEFT LONG FINGER TRIGGER FINGER RELEASE [id number],M65.30(Left) - Mildred Florence MD Related Problem List Diagnoses (1) Acquired trigger finger of left middle finger:
[2022-06-20] MEDS: ceFAZolin 2,000 MG in sodium chloride 0.9% (plus) 50 ML 100 MG IV (07:22)
--- NOTE | 2022-06-20 07:22 | ANES.PREANE2 ---
Pre-Anesthetic Assessment Height/Weight: Height 1.63 m Weight 117.934 kg Temp Pulse Resp BP Pulse Ox O2 Del Method 97.8 F 66 18 145/78 96 Room Air 06/20/22 06:54 06/20/22 06:54 06/20/22 06:54 06/20/22 06:54 06/20/22 06:54 06/20/22 06:54 Preop Diagnosis: Left long finger triggering Operation Date: 06/20/22 07:50 Proposed Procedures p LEFT LONG FINGER TRIGGER FINGER RELEASE [id number],M65.30(Left) - Mildred Florence MD Familial anesthetic complications: none Was Beta Lisa taken within 24 hours: Yes Was Clonidine taken within 24 hours: N/A Last intake: Intake Last Liquid Date 06/19/22 Last Liquid Time 22:00 Last Solid Date 06/19/22 Last Solid Time 22:00 Social No alcohol and No tobacco Exam alert, oriented x 3, clear to auscultation bilaterally and regular rate & rhythm Airway Submandibular: within normal limits Cervical ROM: within normal limits Mallampati: Class II Dentition: false CV/HEM Hypertension Chronic Renal Insufficiency Metabolic Diabetes Mellitus, Hyperlipidemia and Morbid Obesity Neuropsych Anxiety and Depression Anesthetic Plan ASA status: 3 Anesthesia: Choice Medications/Allergies Home Medications Medication Instructions Recorded Confirmed Last Taken Type aspirin 325 mg tablet 325 mg PO QDAY 03/28/19 06/20/22 06/18/22 History CPAP mask #1 ea 01/31/20 06/18/22 Unknown Rx CPAP AUTO TITRATING 6-12 #1 ea 05/17/20 06/18/22 Unknown Rx Multivitamin for women over 50 PO 01/16/21 06/18/22 Unknown History hydroxyzine HCl 50 mg tablet 50 mg PO QID PRN anxiety #120 tabs 11/05/21 06/19/22 06/18/22 20:00 Rx paroxetine HCl 40 mg tablet 40 mg PO DAILY #30 tabs 11/05/21 06/19/22 06/19/22 07:00 Rx trazodone 50 mg tablet 100 mg PO .HS PRN insomnia #60 tabs 11/05/21 06/19/22 06/18/22 20:00 Rx bumetanide 2 mg tablet 2 mg PO BID 90 days #180 tabs 12/04/21 06/20/22 06/19/22 14:00 Rx metoprolol succinate 25 mg 25 mg PO BID #180 tabs 12/04/21 06/19/22 06/19/22 08:00 Rx tablet,extended release 24 hr losartan 25 mg tablet See Rx Instructions .Route 01/07/22 06/19/22 06/18/22 Rx .COMPLEX #90 tabs metformin 500 mg tablet 500 mg PO BID 90 days #180 tabs 02/03/22 06/19/22 06/19/22 07:00 Rx tramadol 50 mg tablet 50 mg PO Q12H PRN pain 30 days #60 03/11/22 06/19/22 06/19/22 08:00 Rx tabs bupropion HCl 300 mg 24 hr tablet, 300 mg PO [facility] #30 03/14/22 06/19/22 06/19/22 Rx extended release (Wellbutrin XL) tabs buspirone 10 mg tablet 10 mg PO QDAY #30 tabs 03/26/22 06/19/22 06/19/22 Rx oxybutynin chloride 5 mg 5 mg PO DAILY #90 tabs 05/23/22 06/19/22 06/18/22 Rx tablet,extended release 24 hr isosorbide mononitrate 30 mg 15 mg PO BID #90 tabs 05/29/22 06/19/22 06/19/22 Rx tablet,extended release 24 hr potassium chloride 20 mEq See Rx Instructions .Route 06/19/22 Unknown Rx tablet,extended release .COMPLEX #120 tabs Allergies Allergy/AdvReac Type Severity Reaction Status Date / Time Penicillins Allergy Severe ADR-Itching Verified 06/20/22 06:38 silver [From SilvaSorb] Allergy Severe ADR-Itching Verified 06/20/22 06:38 sulfamethoxazole Allergy Severe rash Verified 06/18/22 10:18 [From Bactrim] trimethoprim [From Bactrim] Allergy Severe rash Verified 06/20/22 06:38 lisinopril AdvReac Mild Cough Verified 06/20/22 06:38 poly mem AG Allergy Severe Blister Uncoded 06/20/22 06:38 Current Medications Generic Name Dose Route Start Last Admin Trade Name Freq PRN Reason Stop Dose Admin Sodium Chloride 1,000 mls @ 30 mls/hr 06/20/22 06:45 06/20/22 07:00 Sodium Chloride 0.9% IV 06/21/22 06:44 30 mls/hr .Q24H KIMBERLY Administration PFSH Anesthesia Medical History CKD stage 2 due to type 2 diabetes mellitus Diabetes mellitus type 2 in obese Dyslipidemia (high LDL; low HDL) Familial tremor Ganglion cyst of tendon sheath of left hand History of COVID-19 Positive test COVID Mar 2021 Hypertension Morbid obesity with BMI of 45.0-49.9, adult ELIZABETH on CPAP Osteoarthritis involving multiple joints on both sides of body Psychiatric care Trigger finger of left hand Trigger finger, right ring finger Urge incontinence Varicose veins of bilateral lower extremities with pain Venous insufficiency Surgical History H/O carpal tunnel repair left wrist History of carpal tunnel surgery of right wrist History of tonsillectomy and adenoidectomy Hx of appendectomy Hx of cholecystectomy Hx of hysterectomy Hx of tubal ligation Status post excision of skin lesion, follow-up exam Family History Mother Chronic kidney disease (CKD) Clotting disorder Dementia Family history of premature coronary artery disease Hypertension Psychiatric illness Thyroid condition Sister Chronic kidney disease (CKD) Diabetes Family history of premature coronary artery disease Hyperlipidemia Hypertension Lung disease Anesthesia complication Thyroid condition Father Dementia Family history of premature coronary artery disease Hyperlipidemia Hypertension Grandmother Diabetes Hypertension Grandfather Psychiatric illness Other CAD (coronary artery disease) Stroke Denies family history of Colon cancer Ovarian cancer Breast cancer Bleeding disorder Uterine cancer Social History Smoking and tobacco status: never smoked Second hand smoke exposure: No Smoking risk assessment/counseling performed?: Yes Tobacco counseling given: counseling >3 minutes Alcohol intake: never Desire information about alcohol rehabilitation?: No Counseling given: Yes Desire information about substance/drug rehabilitation?: No Counseling given: No Data Anesthesia Cardiac Studies: Echocardiogram Ultrasound 04/20/19 Cardiac Event Monitor 05/02/22
[2022-06-20 08:23] VITALS: BP 113/56; PULSE 90; RESP 15; TEMP 36.1; O2SAT 91
[2022-06-20 08:25] VITALS: BP 114/62; PULSE 59; RESP 14; O2SAT 94
[2022-06-20 08:34] VITALS: BP 105/63; PULSE 58; RESP 16; TEMP 36.3; O2SAT 90
--- NOTE | 2022-06-20 08:39 | PM.OP ---
Operative Report Date of procedure: June 20, 2022 Pre-op diagnosis: Left long finger triggering Post-op diagnosis: Left long finger triggering Post-op findings: Abrasion of the flexor tendons under the A1 yuko Procedure done: Release left long finger triggering Specimens removed/disposition: None Surgeon: Mildred Florence Supervisor Cart[employer] Supply: None Anesthesia: MAC (ASA 3) Estimated blood loss (mL): 5 Tourniquet time (min): 21 (At 250 mmHg) IV fluids (mL): 200 Urine output (mL): 0 (No Bravo) Complications: None Findings: Abraded flexor tendons Condition: stable Disposition: PACU (Then return to same-day surgery for discharge to home) Brief History: This is an established 66 year old female patient here today for left hand long finger trigger release. The patient had MRI reviewed at her last office visit, and there were no abnormal masses. Patient states she continues to have pain with use of the hand. 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 Risks and complications were discussed with the patient in the office. Consents were signed and questions were answered. Procedure: Patient was brought to the operating theater. She was placed on the operating room table. A MAC anesthesia, ASA 3, was administered without difficulty. Patient tolerated it well. Ancef 2 g was given uneventfully. A tourniquet was placed high on the arm, the arm was exsanguinated, and the tourniquet was elevated to 250 mmHg. Tourniquet time was 21 minutes. Surgical pause was performed prior to commencement of the surgical procedure. At the time of the surgical pause we identified the site and side of surgery. We also identified the patient's identity and appropriate administration of IV antibiotics. Following the surgical pause, an incision was made along the distal palmar crease beneath the long finger. Dissection continued through the skin to the subcutaneous tissues using a scalpel. Blunt dissection was then utilized to spread soft tissues and allow access to the A1 yuko. It was then incised longitudinally and sharply using a knife. This was accomplished without difficulty and atraumatically. Once the A1 yuko was released, tendons were brought up out of the wound and evaluated. The tendons demonstrated abrasion from chronic triggering. Both tendons were affected, and these were slightly debrided. Tendons were returned to normal position. We then irrigated the wound and subsequently closed it with 3-0 nylon with an interrupted mattress type suture. Following closure of the wound, the wound was injected with local anesthetic into the subcutaneous tissues. Sterile dressing was then placed consisting of Dermabond, fluffed fluffs, sterile soft roll, and an Joshua wrap. The patient was returned to recovery in satisfactory condition. She will be discharged home to follow-up with me in the office. There were no complications and no specimens. Related Problem List Diagnoses (1) Acquired trigger finger of left middle finger:
--- NOTE | 2022-06-20 08:51 | P.PCN_ITS ---
PACU note Narrative: VSS, Good respiratory effort, report to NURSERYMAN ASSISTANT Exam: awake
--- NOTE | 2022-06-20 08:51 | PM.PACU ---
PACU note Narrative: VSS, Good respiratory effort, report to HEARING OFFICER Exam: awake
[2022-06-20] MEDS: HYDROcodone-acetaminophen 5-325 mg Tablet 1 TAB PO (08:54)
[2022-06-20 08:56] VITALS: BP 111/57; PULSE 62; RESP 16; TEMP 36.4; O2SAT 92
--- NOTE | 2022-06-20 13:55 | ANE.PACU2 ---
Inpatient post-anesthesia follow up: Airway intact: Yes Vital signs: Temperature 97.6 F Pulse Rate 62 Respiratory Rate 16 Blood Pressure 111/57 Pulse Oximetry 92 Oxygen Delivery Me thod Room Air Oxygen Flow Rate 6 Fraction of Inspir ed Oxygen Hydration adequate: Yes Nausea and vomiting: No Pain level: 2 Mental status: Baseline
[2022-06-20 15:39] LABS: Glucose Point of Care 116 mg/dL (70-110)
== END 2022-06-20 09:05 | disposition home or self-care (01) ==
PROVIDERS: PCP Family Medicine Adult Medicine; Visit Provider Specialist
PROC: (CPT 26055; principal; 2022-06-20 07:40)
DX: M65.332 Trigger finger, left middle finger (principal); Z79.82 Long term (current) use of aspirin; Z79.84 Long term (current) use of oral hypoglycemic drugs; E78.5 Hyperlipidemia, unspecified; E66.01 Morbid (severe) obesity due to excess calories; Z68.42 Body mass index [BMI] 45.0-49.9, adult; G47.33 Obstructive sleep apnea (adult) (pediatric); I12.9 Hypertensive chronic kidney disease with stage 1 through stage 4 chronic kidney disease, or unspecified chronic kidney disease; E11.22 Type 2 diabetes mellitus with diabetic chronic kidney disease; N18.2 Chronic kidney disease, stage 2 (mild); F41.9 Anxiety disorder, unspecified; F32.A Depression, unspecified
CPT/HCPCS: 26055; 36416; 82962; J0131; J0690; J2704; J3010; J3490; J7030

== ENCOUNTER 2022-07-01 21:59 | Emergency (ER) | payer MEDICARE, MEDICAID, SELFPAY ==
[2022-07-01 22:06] VITALS: BP 148/87; PULSE 72; RESP 16; TEMP 37.6; O2SAT 98; BMI 44.1
--- NOTE | 2022-07-01 22:07 | CTR_ITS ---
PROCEDURE INFORMATION: Exam: CT Abdomen And Pelvis Without Contrast Exam date and time: 07/01/2022 10:46 PM Age: 66 years old Clinical indication: Nausea and vomiting; Abdominal pain; Prior surgery; Surgery type: Gb. Ductal stent. Appy. Hysterectomy. Patient HX: C/O epigastric pain with n/v/d. ; Additional info: Abd pain TECHNIQUE: Imaging protocol: Computed tomography of the abdomen and pelvis without contrast. Radiation optimization: All CT scans at this facility use at least one of these dose optimization techniques: automated exposure control; mA and/or kV adjustment per patient size (includes targeted exams where dose is matched to clinical indication); or iterative reconstruction. REPORTING DATA: Count of CT and Cardiac NM exams in prior 12 months: This patient has received 0 known CTs and 0 known cardiac nuclear medicine studies in the 12 months prior to the current study. COMPARISON: US renal BI* [id number] 06/29/2019 7:55 AM RADIATION DOSE METRICS: Total DLP (mGy-cm): 1010.05 FINDINGS: Liver: Normal. No mass. Gallbladder and bile ducts: The patient has had a cholecystectomy. There is a common bile duct stent in place with its distal tip in the duodenum. Pancreas: Normal. No ductal dilation. Spleen: There are calcified granulomas in the spleen. Adrenal glands: Normal. No mass. Kidneys and ureters: There is a 1.6 cm cyst in the right kidney. Stomach and bowel: Multiple densities in the cecum may be pill fragments. Loops of small bowel in the left upper quadrant with thickened aguilar consistent with infectious or inflammatory enteritis. Appendix: Patient has had an appendectomy. Intraperitoneal space: Unremarkable. No free air. No significant fluid collection. Vasculature: Unremarkable. No abdominal aortic aneurysm. Lymph nodes: Unremarkable. No enlarged lymph nodes. Urinary bladder: Unremarkable as visualized. Reproductive: The patient has had a hysterectomy. Bones/joints: There is a left convex scoliosis centered at L3 with moderate to severe degenerative changes throughout the spine. Soft tissues: Unremarkable. CT/CT abdomen pelvis wo con [id number] IMPRESSION: Infectious or inflammatory enteritis. Other surgical changes as described above. Right renal cyst. COMMENTS: Consistent with the [employer]'s Incidental Findings Committee white paper (J Am Alycia Radiol 2018): Any incidental renal lesion less than 1 cm or classified as too small to characterize, or any incidental cystic renal lesion characterized as simple-appearing, is likely benign. No follow-up imaging is recommended for these lesions per consensus recommendations based on imaging criteria.
--- NOTE | 2022-07-01 22:08 | ED_ITS ---
HPI - Abdominal Pain General: Chief Complaint: Abdominal Pain Stated Complaint: abd pain Time Seen by Provider: 07/01/22 22:00 Source: patient and EMS Mode of arrival: EMS Limitations: no limitations History of Present Illness: 66-year-old female states that since this morning she has been having nausea vomiting diarrhea along with some upper abdominal pain. She has had multiple episodes of vomiting states the diarrhea has stopped states her pain seems to be coming in waves she is currently pain-free she denies any fever denies any worsening improving factors does not take any meds at home. Associated Symptoms: Reports diarrhea, nausea and vomiting; Denies chills, dysuria and fever(s) Review of Systems Const: Denies: fever(s), chills, body aches or change in appetite Eyes: Denies: eye discomfort ENMT: Denies: throat pain or dental pain Card: Denies: chest pain Resp: Denies: dyspnea GI: Reports: abdominal pain, nausea, vomiting and diarrhea : Denies: dysuria Musc: Denies: neck pain or back pain Skin/Breast: Denies: rash All/Imm: Denies: urticaria PFSH ED PFSH: Medical History CKD stage 2 due to type 2 diabetes mellitus Diabetes mellitus type 2 in obese Dyslipidemia (high LDL; low HDL) Familial tremor Ganglion cyst of tendon sheath of left hand History of COVID-19 Positive test COVID Mar 2021 Hypertension Morbid obesity with BMI of 45.0-49.9, adult ELIZABETH on CPAP Osteoarthritis involving multiple joints on both sides of body Psychiatric care Trigger finger of left hand Trigger finger, right ring finger Urge incontinence Varicose veins of bilateral lower extremities with pain Venous insufficiency Surgical History H/O carpal tunnel repair left wrist History of carpal tunnel surgery of right wrist History of tonsillectomy and adenoidectomy Hx of appendectomy Hx of cholecystectomy Hx of hysterectomy Hx of tubal ligation Status post excision of skin lesion, follow-up exam Family History Mother Chronic kidney disease (CKD) Clotting disorder Dementia Family history of premature coronary artery disease Hypertension Psychiatric illness Thyroid condition Sister Chronic kidney disease (CKD) Diabetes Family history of premature coronary artery disease Hyperlipidemia Hypertension Lung disease Anesthesia complication Thyroid condition Father Dementia Family history of premature coronary artery disease Hyperlipidemia Hypertension Grandmother Diabetes Hypertension Grandfather Psychiatric illness Other CAD (coronary artery disease) Stroke Denies family history of Colon cancer Ovarian cancer Breast cancer Bleeding disorder Uterine cancer Social History Smoking and tobacco status: never smoked Second hand smoke exposure: No Smoking risk assessment/counseling performed?: Yes Tobacco counseling given: counseling >3 minutes Alcohol intake: never Desire information about alcohol rehabilitation?: No Counseling given: Yes Substance/Drug Use: never Desire information about substance/drug rehabilitation?: No Counseling given: No Physical Exam Const: COMMON NORMALS: no acute distress, patient oriented x3 and healthy appearing HENMT: COMMON NORMALS: normocephalic and atraumatic HEAD & SCALP: normocephalic and atraumatic Eye: COMMON NORMALS: conjunctivae normal CONJUNCTIVA: Yes conjunctivae normal Neck/C-Spine: COMMON NORMALS: full ROM and supple Chest: COMMONS NORMALS: normal inspection of the chest and normal palpation of entire chest wall Resp: COMMON NORMALS: normal respiratory effort, No retractions, No use of accessory muscles and clear to auscultation bilaterally AUSCULTATION: clear to auscultation bilaterally Cardio: COMMON NORMALS: regular rate, regular rhythm and No murmurs present (Cardio) RATE: regular rate RHYTHM: regular rhythm GI: COMMON NORMALS: Normal to inspection, nondistended, normoactive bowel sounds present, Soft to palpation, non-tender and no masses PALPATION: Yes Soft to palpation Extremity: COMMON NORMALS: normal to inspection and full ROM Neuro: COMMON NORMALS: patient oriented x3, moves all extremities and no focal motor deficits Psych: COMMON NORMALS: mental status grossly normal, Normal thought process present and cooperative THOUGHT PROCESS: Normal thought process present Skin: COMMON NORMALS: no rashes or lesions noted and no wounds GENERAL SKIN EXAM: no rashes or lesions noted Course Vital Signs: Vital signs: Vital Signs Temperature 99.6 F 07/01/22 22:06 Pulse Rate 70 07/01/22 22:59 Respiratory Rate 16 07/01/22 23:45 Blood Pressure 158/63 07/01/22 23:45 Pulse Oximetry 93 07/01/22 23:45 Oxygen Delivery Me thod Room Air 07/01/22 22:59 MDM - Abdominal Pain Medical Decision Making Patient presents here with vomiting along with abdominal pain since resolved. She been able tolerate fluids here has been well-appearing here exam at discharge is benign CT did show a enteritis we will start her on Cipro Flagyl along with Zofran she is to follow-up with her PCP return if worsening she understands agrees to plan Differential Diagnosis Likely abdominal pain, acute appendicitis, constipation, diverticulitis and gastroenteritis Medical Records I reviewed the patient's medical records. Lab Data 07/01/22 22:29 07/01/22 22:29 Labs/Radiology: Radiology Impressions Abdomen/Pelvis CT 07/01/22 22:07 IMPRESSION: Infectious or inflammatory enteritis. Other surgical changes as described above. Right renal cyst. COMMENTS: Consistent with the [employer]'s Incidental Findings Committee white paper (J Am Alycia Radiol 2018): Any incidental renal lesion less than 1 cm or classified as too small to characterize, or any incidental cystic renal lesion characterized as simple-appearing, is likely benign. No follow-up imaging is recommended for these lesions per consensus recommendations based on imaging criteria. Laboratory Results WBC 16.7 10^3/uL (4.0-10.0) H 07/01/22 22: RBC 4.81 10^6/uL (4.1-5.3) 07/01/22 22: Hgb 13.6 g/dL (11.5-15.3) 07/01/22 22: Hct 40.5 % (37.0-47.0) 07/01/22 22: MCV 84.2 fl (81-99) 07/01/22 22: MCH 28.3 pg (28.0-34.0) 07/01/22 22: MCHC 33.6 g/dL (30.0-36.0) 07/01/22 22: RDW 13.1 % (12.1-15.1) 07/01/22 22: Plt Count 224 10^3/cmm (130-400) 07/01/22 22: MPV 10.7 fL (7.4-10.4) H 07/01/22 22: Neut % (Auto) 90.2 % 07/01/22 22: Lymph % (Auto) 3.9 % 07/01/22 22: [place] % (Auto) 5.0 % 07/01/22: Eos % (Auto) 0.2 % 07/01/22: Baso % (Auto) 0.3 % 07/01/22: Neut # (Auto) 15.01 10^3/uL (1.8-7.7) H 07/01/22: Lymph # (Auto) 0.7 10^3/uL (0.8-4.8) L 07/01/22: [place] # (Auto) 0.8 10^3/uL (0.2-0.9) 07/01/22: Eos # (Auto) 0.0 10^3/uL (0.0-0.8) 07/01/22: Baso # (Auto) 0.1 10^3/uL (0.0-0.1) 07/01/22: Nucleated RBC % (auto) 0 % 07/01/22: Nucleated RBCs # 0.0 /100WBC 07/01/22: Sodium 134 mmol/L (136-145) L 07/01/22: Potassium 3.9 mmol/L (3.5-5.1) 07/01/22: Chloride 96 mmol/L (98-107) L 07/01/22: Carbon Dioxide 24 mmol/L (22-29) 07/01/22: Anion Gap 17.9 (5-19) 07/01/22: BUN 13 mg/dL (8-23) 07/01/22: Creatinine 0.8 mg/dL (0.5-0.9) 07/01/22: GFR Calculation 72.0 mL/min (90-130) L 07/01/22: Glucose 132 mg/dL (65-115) H 07/01/22: Calculated Osmolality 280 mOsm/kg (285-295) L 07/01/22: Calcium 9.3 mg/dL (8.5-10.5) 07/01/22: Total Bilirubin 0.6 mg/dL (0.15-1.2) 07/01/22: AST 114 U/L (0-32) H 07/01/22 22: ALT 101 U/L (0-33) H 07/01/22 22: Alkaline Phosphatase 91 U/L (35-105) 07/01/22 22: Total Protein 6.9 g/dL (6.6-8.7) 07/01/22 22: Albumin 4.1 g/dL (3.5-5.2) 07/01/22 22: Globulin 2.8 g/dL (1.3-4.6) 07/01/22 22: Lipase 22 U/L (13-60) 07/01/22 22: Urine Color Yellow (Yellow) 07/01/22 23: Urine Appearance Clear (CLEAR) 07/01/22 23: Urine pH 7 (5-7) 07/01/22 23: Ur Specific [place] 1.010 (1.005-1.030) 07/01/22 23: Urine Protein Neg (Negative) 07/01/22 23: Urine Glucose (UA) Norm (Normal) 07/01/22 23:29 Urine Ketones Negative (Negative) 07/01/22 23:29 Urine Blood Neg (Negative) 07/01/22 23: Urine Nitrate Negative (Negative) 07/01/22 23: Urine Bilirubin Neg (Negative) 07/01/22 23: Urine Urobilinogen Norm mg/dL (Negative) 07/01/22 23:29 Ur Leukocyte Esterase Negative (Negative) 07/01/22 23:29 Discharge Plan Discharge Patient Disposition: Home Clinical Impression: Vomiting, Enteritis Condition: Stable Prescriptions: New hydrocodone-acetaminophen 5-325 mg tablet 1 tab PO Q6H PRN (Reason: pain) Qty: 14 0RF metronidazole 500 mg tablet 500 mg PO Q8H 7 Days Qty: 21 0RF Cipro 500 mg tablet 500 mg PO BID Qty: 14 0RF ondansetron 4 mg tablet,disintegrating 4 mg PO Q6H PRN (Reason: nausea and vomiting) Qty: 14 0RF No Action aspirin 325 mg tablet 325 mg PO QDAY Hold Instructions: Resume on 07/12/19. Multivitamin for women over 50 tablet 1 tab PO DAILY bumetanide 2 mg tablet 2 mg PO BID 90 Days Qty: 180 3RF metoprolol succinate 25 mg tablet extended release 24 hr 25 mg PO BID Qty: 180 3RF hydroxyzine HCl 50 mg tablet 50 mg PO QID PRN (Reason: anxiety) Qty: 120 2RF paroxetine HCl 40 mg tablet 40 mg PO DAILY Qty: 30 2RF trazodone 50 mg tablet 100 mg PO .HS PRN (Reason: insomnia) Qty: 60 2RF oxybutynin chloride 5 mg tablet extended release 24hr 5 mg PO DAILY Qty: 90 3RF (DME) CPAP mask See Rx Instructions .Route .MEDSUPPLY Qty: 1 0RF Rx Instructions: autosubstitue formulary equivalent SEND TO HOME ; autosubstitue formulary equivalent SEND TO HOME (DME) CPAP AUTO TITRATING 6-12 See Rx Instructions .Route .MEDSUPPLY Qty: 1 0RF Rx Instructions: As directed metformin 500 mg tablet 500 mg PO BID 90 Days Qty: 180 2RF tramadol 50 mg tablet 50 mg PO Q12H PRN (Reason: pain) 30 Days Qty: 60 3RF Rx Instructions: fill on or after each 30 day interval buspirone 10 mg tablet 10 mg PO QDAY Qty: 30 2RF isosorbide mononitrate 30 mg tablet extended release 24 hr 15 mg PO BID Qty: 90 1RF potassium chloride 20 mEq tablet extended release See Rx Instructions .ROUTE .COMPLEX Qty: 120 5RF Dose Instruction: TAKE 2 TABLETS BY MOUTH TWICE DAILY WITH FOOD Rx Instructions: TAKE 2 TABLETS BY MOUTH TWICE DAILY WITH FOOD bupropion HCl [Wellbutrin XL] 300 mg tablet extended release 24 hr 300 mg PO QAM Qty: 30 2RF losartan 25 mg tablet See Rx Instructions .ROUTE .COMPLEX Qty: 90 1RF Dose Instruction: TAKE 1 TABLET BY MOUTH ONCE DAILY FOR BLOOD PRESSURE/HEART/KIDNEY PROTECTION Rx Instructions: TAKE 1 TABLET BY MOUTH ONCE DAILY FOR BLOOD PRESSURE/HEART/KIDNEY PROTECTION Discharge Orders: Discharge ED (Routine); Ordered 07/01/22 Ordered By: Keily Laguerre Referrals: Dominguez Horne MD [Primary Care Provider] - 1-3 days Discharge Diet: Advance as tolerated Discharge Activity: Resume usual activity Patient Instructions: Acute Nausea and Vomiting (ED), Enteritis (ED), Opioid Safety Coding Level of Care Code ED Alarm Signaler for Adelina Johnson
[2022-07-01] MEDS: ondansetron 2 mg/ML SDV 2 mL 4 MG IVP (22:12)
[2022-07-01] MEDS: sodium chloride 0.9% 1,000 ML 999 ML IV (22:13)
[2022-07-01 22:34] LABS: Basophils # 0.1 10^3/uL (0.0-0.1); Basophils % 0.3 %; Eosinophils % 0.2 %; Hematocrit 40.5 % (37.0-47.0); Hemoglobin 13.6 g/dL (11.5-15.3); Lymphocytes # 0.7 10^3/uL (0.8-4.8); Lymphocytes % 3.9 %; Mean Corpuscular HGB Conc 33.6 g/dL (30.0-36.0); Mean Corpuscular Hemoglobin 28.3 pg (28.0-34.0); Mean Corpuscular Volume 84.2 fl (81-99); Mean Platelet Volume 10.7 fL (7.4-10.4); Monocytes # 0.8 10^3/uL (0.2-0.9); Neutrophils # 15.01 10^3/uL (1.8-7.7); Neutrophils % 90.2 %; Nucleated Red Blood Cells % 0 %; Platelet Count 224 10^3/cmm (130-400); Red Blood Count 4.81 10^6/uL (4.1-5.3); Red Cell Distribution Width 13.1 % (12.1-15.1); White Blood Count 16.7 10^3/uL (4.0-10.0)
[2022-07-01 22:50] LABS: Alanine Aminotransferase 101 U/L (0-33); Albumin Level 4.1 g/dL (3.5-5.2); Alkaline Phosphatase 91 U/L (35-105); Aspartate Amino Transferase 114 U/L (0-32); Blood Urea Nitrogen 13 mg/dL (8-23); Calcium 9.3 mg/dL (8.5-10.5); Carbon Dioxide 24 mmol/L (22-29); Chloride 96 mmol/L (98-107); Globulin 2.8 g/dL (1.3-4.6); Glucose 132 mg/dL (65-115); Lipase 22 U/L (13-60); Osmolality Calculated 280 mOsm/kg (285-295); Sodium 134 mmol/L (136-145); Total Bilirubin 0.6 mg/dL (0.15-1.2); Total Protein 6.9 g/dL (6.6-8.7)
[2022-07-01 22:59] VITALS: BP 148/78; PULSE 70; RESP 16; O2SAT 94
[2022-07-01 23:09] LABS: Anion Gap 17.9 (5-19); Potassium 3.9 mmol/L (3.5-5.1)
[2022-07-01 23:36] LABS: Add Urine Microscopic? NO; Charge for UA Resulting for Rev
[2022-07-01 23:45] VITALS: BP 158/63; RESP 16; O2SAT 93
[2022-07-02 00:03] LABS: Bilirubin Urine Neg (Negative); Blood Urine Neg (Negative); Glucose Urine UA Norm (Normal); Ketones Urine Negative (Negative); Leukocyte Esterase Urine Negative (Negative); Nitrate Urine Negative (Negative); Protein Urine Neg (Negative); Urine Appearance Clear (CLEAR); Urine Color Yellow (Yellow); Urobilinogen Urine Norm (Negative); pH Urine 7 (5-7)
[2022-07-02 00:16] VITALS: BP 141/72; PULSE 71; RESP 16; TEMP 37.6; O2SAT 96
== END 2022-07-02 00:17 | disposition home or self-care (01) ==
PROVIDERS: Emergency Provider Emergency Medicine; PCP Family Medicine Adult Medicine
DX: K52.9 Noninfective gastroenteritis and colitis, unspecified (principal); Z79.82 Long term (current) use of aspirin; Z79.84 Long term (current) use of oral hypoglycemic drugs; E11.22 Type 2 diabetes mellitus with diabetic chronic kidney disease; I12.9 Hypertensive chronic kidney disease with stage 1 through stage 4 chronic kidney disease, or unspecified chronic kidney disease; N18.2 Chronic kidney disease, stage 2 (mild); E78.5 Hyperlipidemia, unspecified
CPT/HCPCS: 74176; 80053; 81003; 83690; 85025; 96361; 96374; 99285; J2405; J7030

== ENCOUNTER → 2022-07-04 08:52 | Outpatient (BNVA) | payer MEDICARE, MEDICAID, SELFPAY | PROVIDERS: PCP Family Medicine Adult Medicine; Visit Provider Nurse Practitioner Family | DX: Z98.890 Other specified postprocedural states (principal) | CPT/HCPCS: 99024; 99213 ==

== ENCOUNTER → 2022-07-08 11:28 | Outpatient (BNVA) | payer MEDICARE, MEDICAID, SELFPAY | PROVIDERS: PCP Family Medicine Adult Medicine; Visit Provider Podiatrist Foot & Ankle Surgery | DX: I73.9 Peripheral vascular disease, unspecified (principal); E11.8 Type 2 diabetes mellitus with unspecified complications; L60.3 Nail dystrophy; I83.813 Varicose veins of bilateral lower extremities with pain; E11.22 Type 2 diabetes mellitus with diabetic chronic kidney disease; N18.2 Chronic kidney disease, stage 2 (mild); Z79.84 Long term (current) use of oral hypoglycemic drugs | CPT/HCPCS: 99214 ==

== ENCOUNTER → 2022-07-24 09:55 | Outpatient (BNVA) | payer MEDICARE, MEDICAID, SELFPAY | PROVIDERS: PCP Family Medicine Adult Medicine; Visit Provider Podiatrist Foot & Ankle Surgery | DX: L60.3 Nail dystrophy (principal); I73.9 Peripheral vascular disease, unspecified; I83.813 Varicose veins of bilateral lower extremities with pain; E11.22 Type 2 diabetes mellitus with diabetic chronic kidney disease; N18.2 Chronic kidney disease, stage 2 (mild); Z79.84 Long term (current) use of oral hypoglycemic drugs | CPT/HCPCS: 11750; A6219; A6446 ==

== ENCOUNTER 2022-08-01 18:03 | Emergency (ER) | payer MEDICARE, MEDICAID, SELFPAY ==
[2022-08-01 18:08] VITALS: BP 193/80; PULSE 66; RESP 18; TEMP 37.2; O2SAT 98; BMI 45.3
--- NOTE | 2022-08-01 18:14 | XRR_ITS ---
PROCEDURE INFORMATION: Exam: XR Left Wrist Exam date and time: 08/01/2022 6:25 PM Age: 66 years old Clinical indication: Injury or trauma; Fall; Blunt trauma (contusions or hematomas); Wrist; Left TECHNIQUE: Imaging protocol: Radiologic exam of the left wrist. Views: 3 or more views. COMPARISON: No relevant prior studies available. FINDINGS: Bones/joints: Severe 1st carpometacarpal and STT joint osteoarthritis. Equivocal scaphoid fracture, if clinically indicated, consider further evaluation with a CT scan. Soft tissues: Normal. XR/XR wrist LT min 3V* [id number] IMPRESSION: 1. Severe 1st carpometacarpal and STT joint osteoarthritis. 2. Equivocal scaphoid fracture, if clinically indicated, consider further evaluation with a CT scan.
--- NOTE | 2022-08-01 18:19 | XRR_ITS ---
PROCEDURE INFORMATION: Exam: XR Left Forearm Exam date and time: 08/01/2022 6:25 PM Age: 66 years old Clinical indication: Injury or trauma; Fall; Blunt trauma (contusions or hematomas); Arm, lower; Left TECHNIQUE: Imaging protocol: Radiologic exam of the left forearm. Views: 2 views. COMPARISON: No relevant prior studies available. FINDINGS: Bones/joints: Normal. Soft tissues: Normal. XR/XR forearm LT 2V [id number] IMPRESSION: No acute findings.
--- NOTE | 2022-08-01 18:24 | ED_ITS ---
HPI - Fall General: Chief Complaint: Fall Stated Complaint: right arm pain Time Seen by Provider: 08/01/22 18:13 Source: patient Mode of arrival: ambulatory Limitations: no limitations History of Present Illness: 66-year-old female states that she is try to break up a dog fight with her dog and the neighbors dog states she tripped and fell landed on her left arm she has pain in her left wrist along with a left forearm small abrasion left forearm. She rates her pain a 6 out of 10 she denies any other injuries denies hitting her head denies any neck pain. Associated symptoms-after fall: Denies abdominal pain, chest pain, headache(s) or neck pain Review of Systems Const: Denies: fever(s), chills, body aches or change in appetite Eyes: Denies: blurry vision or eye discomfort ENMT: Denies: throat pain or dental pain Card: Denies: chest pain Resp: Denies: dyspnea GI: Denies: abdominal pain, nausea, vomiting or diarrhea Musc: Reports: extremity pain; Denies: neck pain or back pain Skin/Breast: Denies: rash Neuro: Denies: headache(s) PFSH ED PFSH: Medical History CKD stage 2 due to type 2 diabetes mellitus Diabetes mellitus type 2 in obese Dyslipidemia (high LDL; low HDL) Familial tremor Ganglion cyst of tendon sheath of left hand History of COVID-19 Positive test COVID Mar 2021 Hypertension Morbid obesity with BMI of 45.0-49.9, adult ELIZABETH on CPAP Osteoarthritis involving multiple joints on both sides of body Psychiatric care Trigger finger of left hand Trigger finger, right ring finger Urge incontinence Varicose veins of bilateral lower extremities with pain Venous insufficiency Surgical History H/O carpal tunnel repair left wrist History of carpal tunnel surgery of right wrist History of tonsillectomy and adenoidectomy Hx of appendectomy Hx of cholecystectomy Hx of hysterectomy Hx of tubal ligation Status post excision of skin lesion, follow-up exam Family History Mother Chronic kidney disease (CKD) Clotting disorder Dementia Family history of premature coronary artery disease Hypertension Psychiatric illness Thyroid condition Sister Chronic kidney disease (CKD) Diabetes Family history of premature coronary artery disease Hyperlipidemia Hypertension Lung disease Anesthesia complication Thyroid condition Father Dementia Family history of premature coronary artery disease Hyperlipidemia Hypertension Grandmother Diabetes Hypertension Grandfather Psychiatric illness Other CAD (coronary artery disease) Stroke Denies family history of Colon cancer Ovarian cancer Breast cancer Bleeding disorder Uterine cancer Social History Smoking and tobacco status: never smoked Second hand smoke exposure: No Smoking risk assessment/counseling performed?: Yes Tobacco counseling given: counseling >3 minutes Alcohol intake: never Desire information about alcohol rehabilitation?: No Counseling given: Yes Substance/Drug Use: never Desire information about substance/drug rehabilitation?: No Counseling given: No Physical Exam Const: COMMON NORMALS: no acute distress, patient oriented x3 and healthy appearing HENMT: COMMON NORMALS: normocephalic and atraumatic HEAD & SCALP: normocephalic and atraumatic Eye: COMMON NORMALS: conjunctivae normal CONJUNCTIVA: Yes conjunctivae normal Neck/C-Spine: COMMON NORMALS: full ROM and supple Chest: COMMONS NORMALS: normal inspection of the chest and normal palpation of entire chest wall Resp: COMMON NORMALS: normal respiratory effort Cardio: COMMON NORMALS: regular rate and No murmurs present (Cardio) RATE: regular rate GI: INSPECTION: Yes normal to inspection Extremity: COMMON NORMALS: full ROM NARRATIVE EXTREMITY EXAM: Tenderness over the left wrist she does have a small abrasion to left forearm distal pulses sensation intact Neuro: COMMON NORMALS: patient oriented x3, moves all extremities and no focal motor deficits Psych: COMMON NORMALS: mental status grossly normal, Normal thought process present and cooperative THOUGHT PROCESS: Normal thought process present Skin: COMMON NORMALS: no rashes or lesions noted and no wounds GENERAL SKIN EXAM: no rashes or lesions noted Course Vital Signs: Vital signs: Vital Signs Temperature 98.9 F 08/01/22 18:08 Pulse Rate 66 08/01/22 18:08 Respiratory Rate 18 08/01/22 18:08 Blood Pressure 193/80 08/01/22 18:08 Pulse Oximetry 98 08/01/22 18:08 Oxygen Delivery Me thod Room Air 08/01/22 18:08 MDM - Fall Medical Decision Making Patient presents with wrist pain after fall she does have tenderness in her snuffbox concerning for possible scaphoid fracture we will put her in a thumb spica have her follow-up with orthopedics for repeat x-ray in 1 week she is stable for discharge she has no other injuries. Lab Data Radiology Impressions Wrist X-Ray 08/01/22 18:14 IMPRESSION: 1. Severe 1st carpometacarpal and STT joint osteoarthritis. 2. Equivocal scaphoid fracture, if clinically indicated, consider further evaluation with a CT scan. Forearm X-Ray 08/01/22 18:19 IMPRESSION: No acute findings. Discharge Plan Discharge Patient Disposition: Home Clinical Impression: Closed fracture of scaphoid of left wrist, Fall Condition: Stable Prescriptions: New hydrocodone-acetaminophen 5-325 mg tablet 1 tab PO Q6H PRN (Reason: pain) Qty: 14 0RF No Action aspirin 325 mg tablet 325 mg PO QDAY Hold Instructions: Resume on 07/12/19. Multivitamin for women over 50 tablet 1 tab PO DAILY bumetanide 2 mg tablet 2 mg PO BID 90 Days Qty: 180 3RF metoprolol succinate 25 mg tablet extended release 24 hr 25 mg PO BID Qty: 180 3RF hydroxyzine HCl 50 mg tablet 50 mg PO QID PRN (Reason: anxiety) Qty: 120 2RF trazodone 50 mg tablet 100 mg PO .HS PRN (Reason: insomnia) Qty: 60 2RF mupirocin 2 % ointment 1 applic topical BID Qty: 15 0RF oxybutynin chloride 5 mg tablet extended release 24hr 5 mg PO DAILY Qty: 90 3RF mupirocin 2 % ointment 1 applic topical BID 14 Days Qty: 22 2RF doxycycline hyclate 100 mg capsule 100 mg PO BID 10 Days Qty: 20 0RF (DME) CPAP mask See Rx Instructions .Route .MEDSUPPLY Qty: 1 0RF Rx Instructions: autosubstitue formulary equivalent SEND TO HOME ; autosubstitue formulary equivalent SEND TO HOME (DME) CPAP AUTO TITRATING 6-12 See Rx Instructions .Route .MEDSUPPLY Qty: 1 0RF Rx Instructions: As directed metformin 500 mg tablet 500 mg PO BID 90 Days Qty: 180 2RF buspirone 10 mg tablet 10 mg PO QDAY Qty: 30 2RF isosorbide mononitrate 30 mg tablet extended release 24 hr 15 mg PO BID Qty: 90 1RF potassium chloride 20 mEq tablet extended release See Rx Instructions .ROUTE .COMPLEX Qty: 120 5RF Dose Instruction: TAKE 2 TABLETS BY MOUTH TWICE DAILY WITH FOOD Rx Instructions: TAKE 2 TABLETS BY MOUTH TWICE DAILY WITH FOOD bupropion HCl [Wellbutrin XL] 300 mg tablet extended release 24 hr 300 mg PO QAM Qty: 30 2RF losartan 25 mg tablet See Rx Instructions .ROUTE .COMPLEX Qty: 90 1RF Dose Instruction: TAKE 1 TABLET BY MOUTH ONCE DAILY FOR BLOOD PRESSURE/HEART/KIDNEY PROTECTION Rx Instructions: TAKE 1 TABLET BY MOUTH ONCE DAILY FOR BLOOD PRESSURE/HEART/KIDNEY PROTECTION tramadol 50 mg tablet 50 mg PO Q12H PRN (Reason: pain) 30 Days Qty: 60 3RF Rx Instructions: fill on or after each 30 day interval paroxetine HCl 40 mg tablet 40 mg PO DAILY Qty: 30 2RF hydrocodone-acetaminophen 5-325 mg tablet 1 tab PO Q6H PRN (Reason: pain) Qty: 14 0RF Cipro 500 mg tablet 500 mg PO BID Qty: 14 0RF ondansetron 4 mg tablet,disintegrating 4 mg PO Q6H PRN (Reason: nausea and vomiting) Qty: 14 0RF Discharge Orders: Discharge ED (Routine); Ordered 08/01/22 Ordered By: Keily Laguerre Referrals: Boogie Pearson DO [Physician] - 1-3 days Dominguez Horne MD [Primary Care Provider] - [facility] [Non-Staff] - Discharge Diet: Advance as tolerated Discharge Activity: Resume usual activity Patient Instructions: Scaphoid Fracture (ED) Coding Level of Care Code ED Senior Talent Acquisition Specialist for Adelina Johnson
[2022-08-01 19:23] VITALS: BP 156/80; PULSE 62; O2SAT 98
--- NOTE | 2022-08-04 09:05 | DCPLANNER ---
Addendum entered by Bernie Fox 08/07/22 08:43: Patient had a follow up appointment scheduled with ortho - patient did attend appointment. Addendum entered by Bernie Fox 08/05/22 15:58: Patient has a follow up appointment scheduled for Thursday, August 06, 2022 at 3:45 with Alton Anderson at ortho. Original Note: global marketing operations manager had message to schedule a follow up appointment for patient with ortho. global marketing operations manager sent patients information to the front office staff at ortho. Patients information will be printed and reviewed. Clinic will call patient with appointment information.
== END 2022-08-01 19:25 | disposition home or self-care (01) ==
PROVIDERS: Emergency Provider Emergency Medicine; PCP Family Medicine Adult Medicine
DX: S62.002A Unspecified fracture of navicular [scaphoid] bone of left wrist, initial encounter for closed fracture (principal); E11.22 Type 2 diabetes mellitus with diabetic chronic kidney disease; I12.9 Hypertensive chronic kidney disease with stage 1 through stage 4 chronic kidney disease, or unspecified chronic kidney disease; N18.2 Chronic kidney disease, stage 2 (mild); E78.5 Hyperlipidemia, unspecified; W01.0XXA Fall on same level from slipping, tripping and stumbling without subsequent striking against object, initial encounter
CPT/HCPCS: 29125; 73090; 73110; 99283

== ENCOUNTER → 2022-08-06 15:25 | Outpatient (BNVA) | payer MEDICARE, MEDICAID, SELFPAY | PROVIDERS: PCP Family Medicine Adult Medicine; Referring Provider Emergency Medicine; Visit Provider Nurse Practitioner Family | DX: S62.015A Nondisplaced fracture of distal pole of navicular [scaphoid] bone of left wrist, initial encounter for closed fracture (principal); W54.1XXA Struck by dog, initial encounter; Z46.89 Encounter for fitting and adjustment of other specified devices | CPT/HCPCS: 97760; 99214; L3984 ==

== ENCOUNTER 2022-08-06 16:25 | Outpatient (CLI) | payer MEDICARE, MEDICAID, SELFPAY | END 2022-08-06 16:26 | disposition home or self-care (01) | LOC: SPT 08-07 14:25 | PROVIDERS: PCP Family Medicine Adult Medicine; Visit Provider Nurse Practitioner Family | DX: Z46.89 Encounter for fitting and adjustment of other specified devices (principal); S62.002D Unspecified fracture of navicular [scaphoid] bone of left wrist, subsequent encounter for fracture with routine healing; X58.XXXD Exposure to other specified factors, subsequent encounter | CPT/HCPCS: 97760; L3984 ==

== ENCOUNTER → 2022-09-23 15:17 | Outpatient (BNVA) | payer MEDICARE, MEDICAID, SELFPAY | PROVIDERS: PCP Family Medicine Adult Medicine; Visit Provider Nurse Practitioner Family | DX: M65.331 Trigger finger, right middle finger (principal); E11.22 Type 2 diabetes mellitus with diabetic chronic kidney disease; N18.2 Chronic kidney disease, stage 2 (mild); Z79.84 Long term (current) use of oral hypoglycemic drugs | CPT/HCPCS: 36415; 80053; 81003; 83036; 85025; 99214 ==

== ENCOUNTER 2022-10-01 16:21 | Outpatient (CLI) | payer MEDICARE, MEDICAID, SELFPAY ==
[2022-10-01 17:54] LABS: Alanine Aminotransferase 22 U/L (0-33); Aspartate Amino Transferase 11 U/L (0-32); Gamma Glutamyl Transferase 195 U/L (5-36); Lactate Dehydrogenase 147 U/L (135-214)
== END 2022-10-01 16:22 | disposition home or self-care (01) ==
LOC: LAB 16:27
PROVIDERS: PCP Family Medicine Adult Medicine; Visit Provider Clinical Nurse Specialist Adult Health
DX: Z01.818 Encounter for other preprocedural examination (principal)
CPT/HCPCS: 82977; 83615; 84450; 84460

== ENCOUNTER 2022-10-03 05:38 | Day surgery (SDC) | payer MEDICARE, MEDICAID, SELFPAY ==
[2022-10-02 08:27] VITALS: BMI 42.9
[2022-10-03] VITALS (10 sets, daily range): BP systolic 130–182; BP diastolic 65–89; PULSE 63–68; RESP 14–18; TEMP 36.3–36.4; O2SAT 93–100
[2022-10-03] MEDS: CELEcoxib 200 mg Capsule 400 MG PO (06:26)
[2022-10-03] MEDS: sodium chloride 0.9% 1,000 ML 30 ML IV (06:27)
[2022-10-03] MEDS: acetaminophen 1,000 MG/100 ML PIGGYBACK 400 MG IV (06:27)
--- NOTE | 2022-10-03 06:48 | ANES.PREANE2 ---
Pre-Anesthetic Assessment Height/Weight: Height 1.63 m Weight 113.398 kg Temp Pulse Resp BP Pulse Ox O2 Del Method 97.5 F L 65 18 160/81 96 Room Air 10/03/22 06:16 10/03/22 06:16 10/03/22 06:16 10/03/22 06:16 10/03/22 06:16 10/03/22 06:16 Operation Date: 10/03/22 07:00 Proposed Procedures p RIGHT LONG FINGER TRIGGER FINGER RELEASE 11460,M65.30(Right) - Mildred Florence MD Familial anesthetic complications: None Was Beta Lisa taken within 24 hours: Yes Was Clonidine taken within 24 hours: N/A Last intake: Intake Last Liquid Date 10/02/22 Last Liquid Time 21:00 Last Solid Date 10/02/22 Last Solid Time 21:00 Social No alcohol and No tobacco Airway Mallampati: Class III Dentition: other (multiple missing) Pulmonary Sleep Apnea CV/HEM Atrial Fibrillation and Hypertension Chronic Renal Insufficiency Metabolic Diabetes Mellitus, Hyperlipidemia and Morbid Obesity Anesthetic Plan ASA status: 3 Anesthesia: General Risk of > 500 ml blood loss (7ml/kg in children): No Medications/Allergies Home Medications Medication Instructions Recorded Confirmed Last Taken Type aspirin 325 mg tablet 325 mg PO QDAY 03/28/19 10/02/22 09/25/22 History CPAP mask #1 ea 01/31/20 09/25/22 Unknown Rx CPAP AUTO TITRATING 6-12 #1 ea 05/17/20 09/25/22 Unknown Rx Multivitamin for women over 50 1 tab PO DAILY 01/16/21 10/02/22 09/25/22 History trazodone 50 mg tablet 100 mg PO .HS PRN insomnia #60 tabs 11/05/21 10/02/22 10/01/22 Rx bumetanide 2 mg tablet 2 mg PO BID 90 days #180 tabs 12/04/21 10/02/22 10/01/22 Rx metoprolol succinate 25 mg 25 mg PO BID #180 tabs 12/04/21 10/02/22 10/03/22 Rx tablet,extended release 24 hr metformin 500 mg tablet 500 mg PO BID 90 days #180 tabs 02/03/22 10/02/22 10/02/22 Rx buspirone 10 mg tablet 10 mg PO QDAY #30 tabs 03/26/22 10/02/22 09/24/22 Rx oxybutynin chloride 5 mg 5 mg PO DAILY #90 tabs 05/23/22 10/02/22 10/02/22 Rx tablet,extended release 24 hr isosorbide mononitrate 30 mg 15 mg PO BID #90 tabs 05/29/22 10/02/22 10/02/22 Rx tablet,extended release 24 hr losartan 25 mg tablet See Rx Instructions .Route 07/01/22 10/02/22 10/01/22 Rx .COMPLEX #90 tabs tramadol 50 mg tablet 50 mg PO Q12H PRN pain 30 days #60 07/15/22 10/02/22 10/02/22 Rx tabs paroxetine HCl 40 mg tablet 40 mg PO DAILY #30 tabs 07/31/22 10/02/22 10/02/22 Rx hydrocodone 5 mg-acetaminophen 325 1 tab PO Q6H PRN pain #14 tabs 08/01/22 10/02/22 Unknown Rx mg tablet potassium chloride 20 mEq 40 meq PO BID #120 tabs 09/08/22 10/02/22 10/02/22 Rx tablet,extended release(part/cryst) (Klor-Con M) bupropion HCl 300 mg 24 hr tablet, 300 mg PO [facility] #30 09/19/22 10/02/22 10/02/22 Rx extended release (Wellbutrin XL) tabs Allergies Allergy/AdvReac Type Severity Reaction Status Date / Time Penicillins Allergy Severe ADR-Itching Verified 09/25/22 08:53 silver [From SilvaSorb] Allergy Severe ADR-Itching Verified 09/25/22 08:53 sulfamethoxazole Allergy Severe rash Verified 09/25/22 08:53 [From Bactrim] trimethoprim [From Bactrim] Allergy Severe rash Verified 09/25/22 08:53 metronidazole Allergy diarrhea, Verified 09/25/22 08:53 could taste right, fatigue, nausea lisinopril AdvReac Mild Cough Verified 09/25/22 08:53 poly mem AG Allergy Severe Blister Uncoded 09/25/22 08:53 Current Medications Generic Name Dose Route Start Last Admin Trade Name Freq PRN Reason Stop Dose Admin Sodium Chloride 1,000 mls @ 30 mls/hr 10/03/22 06:00 10/03/22 06:27 Sodium Chloride 0.9% IV 10/04/22 05:59 30 mls/hr .Q24H KIMBERLY Administration PFSH Anesthesia Medical History CKD stage 2 due to type 2 diabetes mellitus Diabetes mellitus type 2 in obese Dyslipidemia (high LDL; low HDL) Familial tremor Ganglion cyst of tendon sheath of left hand History of COVID-19 Positive test COVID Mar 2021 Hypertension Morbid obesity with BMI of 45.0-49.9, adult ELIZABETH on CPAP Osteoarthritis involving multiple joints on both sides of body Psychiatric care Trigger finger of left hand Trigger finger, right ring finger Urge incontinence Varicose veins of bilateral lower extremities with pain Venous insufficiency Surgical History H/O carpal tunnel repair left wrist History of carpal tunnel surgery of right wrist History of tonsillectomy and adenoidectomy Hx of appendectomy Hx of cholecystectomy Hx of hysterectomy Hx of tubal ligation Status post excision of skin lesion, follow-up exam Family History Mother Chronic kidney disease (CKD) Clotting disorder Dementia Family history of premature coronary artery disease Hypertension Psychiatric illness Thyroid condition Sister Chronic kidney disease (CKD) Diabetes Family history of premature coronary artery disease Hyperlipidemia Hypertension Lung disease Anesthesia complication Thyroid condition Father Dementia Family history of premature coronary artery disease Hyperlipidemia Hypertension Grandmother Diabetes Hypertension Grandfather Psychiatric illness Other CAD (coronary artery disease) Stroke Denies family history of Colon cancer Ovarian cancer Breast cancer Bleeding disorder Uterine cancer Social History Smoking and tobacco status: never smoked Second hand smoke exposure: No Smoking risk assessment/counseling performed?: Yes Tobacco counseling given: counseling >3 minutes Alcohol intake: never Desire information about alcohol rehabilitation?: No Counseling given: Yes Substance/Drug Use: never Desire information about substance/drug rehabilitation?: No Counseling given: No Data Anesthesia Cardiac Studies: Echocardiogram Ultrasound 04/20/19 Cardiac Event Monitor 05/02/22
--- NOTE | 2022-10-03 06:52 | P.HPUD_ITS ---
Surgery/Procedure H&P Update DATE OF PROCEDURE: October 03, 2022 DATE H&P PERFORMED: 09/25/22 H&P UPDATE INFORMATION: I have reviewed H&P completed within last 30 days, I have examined patient prior to procedure, No changes to prior documentation and H&P is in [facility] EMR on date indicated PLANNED PROCEDURE: Operation Date: 10/03/22 07:00 Proposed Procedures p RIGHT LONG FINGER TRIGGER FINGER RELEASE 90824,M65.30(Right) - Mildred Florence MD Related Problem List Diagnoses (1) Acquired trigger finger of right middle finger:
[2022-10-03] MEDS: ceFAZolin 2,000 MG in sodium chloride 0.9% (plus) 50 ML 100 MG IV (07:00)
--- NOTE | 2022-10-03 08:51 | P.OP_ITS ---
Operative Report Date of procedure: October 03, 2022 Pre-op diagnosis: Right long finger triggering Post-op diagnosis: Right long finger triggering Post-op findings: Significant compression across the flexor tendons of the right long finger with fraying under the A1 yuko Procedure done: Release right long finger trigger finger Pathology: none sent Surgeon: Mildred Florence Hris Developer: None Anesthesia: General (Per LMA, ASA 3) Estimated blood loss (mL): 2 Tourniquet time (min): 25 (At 250 mmHg) IV fluids (mL): 800 Urine output (mL): 0 (No Bravo) Complications: None Condition: stable Disposition: PACU (Then return to same-day surgery for discharge to home) Brief History: Alexia is an established 66 year old female presents today for release of her right long finger triggering. She states the last 3 weeks it has been triggering.? It is worsening with time, and she previously had a left long finger trigger finger release with me.? She is happy with her results she is want to move forward. The patient is seen in clinic, and after discussion, she wishes to proceed with trigger finger release of the right long finger. Procedure: Patient was brought to the operating theater. She was placed on the operating room table. General anesthesia was administered per LMA, ASA 3, and the patient tolerated this well. She had noted an anesthesia allergy preoperatively, but she was given a test dose of Ancef successfully. Therefore the patient was given 2 g of Ancef prophylactically. A tourniquet was placed high on the arm and was elevated after the arm was exsanguinated. Tourniquet time was 25 minutes at 250 mmHg. Surgical pause was performed prior to commencement of the surgical procedure. At the time of the surgical pause we identified the site and side of surgery. We also identified the patient's identity and appropriate administration of IV antibiotics. Following the surgical pause, an incision was made along the distal palmar crease beneath the long finger. Dissection continued through the skin to the subcutaneous tissues using a scalpel. Blunt dissection was then utilized to spread soft tissues and allow access to the A1 yuko. It was then incised longitudinally and sharply using a scalpel. This was accomplished without difficulty and atraumatically. Once the A1 yuko was released, flexor tendons were brought up out of the wound and evaluated. There was no gross masses on the tendons, however, there was fraying of the flexor tendons and obvious irritation. Tendons were returned to normal position. We then irrigated the wound and subsequently closed it with 3-0 nylon with an interrupted mattress type suture. Following closure of the wound, the wound was injected with bupivacaine into the subcutaneous tissues as a local anesthetic. Sterile dressing was then placed consisting of Dermabond, OpSite, fluffed fluffs, sterile soft roll, and an Joshua wrap. The patient was returned to recovery in satisfactory condition. She will be discharged home to follow-up with me in the office. There were no complications and no specimens. Related Problem List Diagnoses (1) Acquired trigger finger of right middle finger:
[2022-10-06 05:48] LABS: Glucose Point of Care 128 mg/dL (70-110)
== END 2022-10-03 09:15 | disposition home or self-care (01) ==
PROVIDERS: Visit Provider Specialist
PROC: (CPT 26055; principal; 2022-10-03 07:00)
DX: M65.331 Trigger finger, right middle finger (principal); I48.91 Unspecified atrial fibrillation; E78.5 Hyperlipidemia, unspecified; E11.22 Type 2 diabetes mellitus with diabetic chronic kidney disease; I12.9 Hypertensive chronic kidney disease with stage 1 through stage 4 chronic kidney disease, or unspecified chronic kidney disease; N18.2 Chronic kidney disease, stage 2 (mild); E66.01 Morbid (severe) obesity due to excess calories; Z68.41 Body mass index [BMI] 40.0-44.9, adult; Z79.82 Long term (current) use of aspirin; Z79.84 Long term (current) use of oral hypoglycemic drugs; Z79.891 Long term (current) use of opiate analgesic
CPT/HCPCS: 26055; 36416; 82962; J0131; J0690; J1100; J2250; J2405; J2704; J3010; J3490; J7030

== ENCOUNTER → 2022-10-20 13:03 | Outpatient (BNVA) | payer MEDICARE, MEDICAID, SELFPAY | PROVIDERS: Visit Provider Nurse Practitioner Family | DX: Z98.890 Other specified postprocedural states (principal) | CPT/HCPCS: 99024 ==

== ENCOUNTER → 2023-06-22 11:12 | Outpatient (BNVA) | payer MEDICARE, MEDICAID, SELFPAY | PROVIDERS: PCP Family Medicine Adult Medicine; Visit Provider Podiatrist Foot & Ankle Surgery | DX: I73.9 Peripheral vascular disease, unspecified (principal); I83.813 Varicose veins of bilateral lower extremities with pain; E11.22 Type 2 diabetes mellitus with diabetic chronic kidney disease; N18.2 Chronic kidney disease, stage 2 (mild); L84 Corns and callosities; L60.3 Nail dystrophy; M06.4 Inflammatory polyarthropathy | CPT/HCPCS: 11055; 11721; 36415; 73130; 80053; 84550; 85025; 85651; 86140; 86200; 86225; 86235; 86431; 99214 ==

== ENCOUNTER → 2023-07-28 08:10 | Outpatient (BNVA) | payer MEDICARE, MEDICAID, SELFPAY | PROVIDERS: PCP Family Medicine Adult Medicine; Visit Provider Family Medicine Adult Medicine | DX: I10 Essential (primary) hypertension (principal); I50.32 Chronic diastolic (congestive) heart failure; E11.22 Type 2 diabetes mellitus with diabetic chronic kidney disease; N18.2 Chronic kidney disease, stage 2 (mild); E78.5 Hyperlipidemia, unspecified; E11.69 Type 2 diabetes mellitus with other specified complication; E66.9 Obesity, unspecified; E66.01 Morbid (severe) obesity due to excess calories; Z68.42 Body mass index [BMI] 45.0-49.9, adult; E78.9 Disorder of lipoprotein metabolism, unspecified | CPT/HCPCS: 80053; 80061; 83036 ==

== ENCOUNTER → 2023-09-22 08:24 | Outpatient (BNVA) | payer MEDICARE, MEDICAID, SELFPAY | PROVIDERS: PCP Family Medicine Adult Medicine; Visit Provider Podiatrist Foot & Ankle Surgery | DX: I73.9 Peripheral vascular disease, unspecified (principal); I83.813 Varicose veins of bilateral lower extremities with pain; E11.22 Type 2 diabetes mellitus with diabetic chronic kidney disease; N18.2 Chronic kidney disease, stage 2 (mild); L84 Corns and callosities; L60.3 Nail dystrophy; Z79.84 Long term (current) use of oral hypoglycemic drugs | CPT/HCPCS: 11055; 11721 ==

== ENCOUNTER 2023-09-27 17:43 | Emergency (ER) | payer MEDICARE, MEDICAID, SELFPAY ==
[2023-09-27 17:58] VITALS: BP 187/77; PULSE 94; RESP 22; TEMP 37.2; O2SAT 97; BMI 47.2
--- NOTE | 2023-09-27 18:02 | ECG_ITS ---
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 Measurements Intervals [place] Rate: 82 P: 60 NV: 156 QRS: 81 QRSD: 90 T: 40 QT: 379 QTc: 445 Interpretive Statements SINUS RHYTHM POSSIBLE INFERIOR MYOCARDIAL INFARCTION , PROBABLY OLD [30 ms Q WAVE IN II/aVF] Compared to ECG 12/20/2019 18:27:41 Myocardial infarct finding now present Electronically Signed On 09-28-2023 9:21:53 CDT by Thomas Huertas M.D. [email or web address]
--- NOTE | 2023-09-27 18:08 | XRR_ITS ---
PROCEDURE INFORMATION: Exam: XR Chest Exam date and time: 09/27/2023 7:03 PM Age: 67 years old Clinical indication: Chest pressure; Patient HX: Chest pain; Hypertension TECHNIQUE: Imaging protocol: Radiologic exam of the chest. Views: 1 view. COMPARISON: CR XR chest 1V portable [id number] 12/20/2019 6:32 PM FINDINGS: Lungs: Unremarkable. No consolidation. Pleural spaces: Unremarkable. No pleural effusion. No pneumothorax. Heart/Mediastinum: Unremarkable. No cardiomegaly. Bones/joints: Unremarkable. XR/XR chest 1V portable [id number] IMPRESSION: No acute findings.
[2023-09-27 18:29] LABS: Basophils # 0.1 10^3/uL (0.0-0.1); Basophils % 0.6 %; Eosinophils # 0.2 10^3/uL (0.0-0.8); Eosinophils % 1.4 %; Hematocrit 45.1 % (36-47); Lymphocytes # 1.5 10^3/uL (0.8-4.8); Lymphocytes % 14.8 %; Mean Corpuscular HGB Conc 32.6 g/dL (30-55); Mean Corpuscular Hemoglobin 28.1 pg (27-33); Mean Corpuscular Volume 86.2 fl (85-98); Mean Platelet Volume 10.6 fL (7.4-10.4); Monocytes # 0.6 10^3/uL (0.2-0.9); Monocytes % 5.8 %; Neutrophils # 8.02 10^3/uL (1.8-7.7); Neutrophils % 76.9 %; Nucleated Red Blood Cells % 0 %; Platelet Count 294 10^3/cmm (157-399); Red Blood Count 5.23 10^6/uL (3.85-5.65); Red Cell Distribution Width 13.8 % (12.1-15.1); White Blood Count 10.42 10^3/uL (3.29-11.43)
[2023-09-27 18:50] LABS: Troponin(5th) Baseline 19 ng/L (0-10)
[2023-09-27 18:53] LABS: Alanine Aminotransferase 26 U/L (0-33); Albumin Level 4.6 g/dL (3.5-5.2); Alkaline Phosphatase 83 U/L (35-105); Aspartate Amino Transferase 16 U/L (0-32); Blood Urea Nitrogen 26 mg/dL (8-23); Calcium 9.8 mg/dL (8.5-10.5); Carbon Dioxide 27 mmol/L (22-29); Chloride 95 mmol/L (98-107); Creatinine Clr Calc Pharmacy 48.1739; Globulin 2.9 g/dL (1.3-4.6); Glomerular Filtration Rate 34.7 mL/min (90-130); Glucose 192 mg/dL (65-115); Lipase 59 U/L (13-60); Osmolality Calculated 298 mOsm/kg (285-295); Sodium 139 mmol/L (136-145); Total Bilirubin 0.2 mg/dL (0.15-1.2); Total Protein 7.5 g/dL (6.6-8.7)
[2023-09-27 19:11] LABS: Add Urine Microscopic? NO; Charge for UA Resulting for Rev
[2023-09-27 19:20] VITALS: BP 148/94; PULSE 78; RESP 18; O2SAT 94
[2023-09-27 19:32] LABS: Bilirubin Urine Neg (Negative); Blood Urine Neg (Negative); Glucose Urine UA Norm (Normal); Ketones Urine Negative (Negative); Leukocyte Esterase Urine Negative (Negative); Nitrate Urine Negative (Negative); Protein Urine Neg (Negative); Specific Gravity, Urine 1.005 (1.005-1.030); Urine Appearance Clear (CLEAR); Urine Color Yellow (Yellow); Urobilinogen Urine Neg (Negative); pH Urine 7 (5-7)
--- NOTE | 2023-09-27 19:36 | ED_ITS ---
HPI - Chest Pain 2 General: Chief Complaint: Chest Pain Stated Complaint: High Blood Pressure and pulse Time Seen by Provider: 09/27/23 18:56 History of Present Illness: Presents to the ER with a history of dizziness, chest pressure substernally that does not radiate and a high blood pressure then it went to a low blood pressure with elevated heart rate and patient felt flushed. This has happened twice in the last 2 days. Patient does not know anything that makes this happen or makes it go away just comes and goes on its own. Patient does have a history of A- fib. Patient is on Eliquis, 325 mg of aspirin, 25 of metoprolol twice daily, patient has not seen a proposal analyst in over 1 year but they did not change anything at her last visit. Patient has no history of coronary artery disease or stents. Review of Systems 2 General: Reports: 10 or more systems reviewed and unremarkable except in HPI and below PFSH ED 2 PFSH: Medical History Hearing loss Bilateral lower extremity edema Urge incontinence CKD stage 2 due to type 2 diabetes mellitus ELIZABETH on CPAP Diabetes mellitus type 2 in obese Dyslipidemia (high LDL; low HDL) Ganglion cyst of tendon sheath of left hand Osteoarthritis involving multiple joints on both sides of body Morbid obesity with BMI of 45.0-49.9, adult Familial tremor Varicose veins of bilateral lower extremities with pain Venous insufficiency Hypertension Surgical History S/P trigger finger release 2 fingers on the left hand and 1 on the right by Dr. Florence H/O carpal tunnel repair left wrist Status post excision of skin lesion, follow-up exam Hx of appendectomy History of tonsillectomy and adenoidectomy Hx of hysterectomy Hx of cholecystectomy Hx of tubal ligation History of carpal tunnel surgery of right wrist Family History Mother Chronic kidney disease (CKD) Clotting disorder Dementia Family history of premature coronary artery disease Hypertension Psychiatric illness Thyroid disease Sister Chronic kidney disease (CKD) Diabetes Family history of premature coronary artery disease Hyperlipidemia Hypertension Lung disease Anesthesia complication Thyroid disease Father Dementia Family history of premature coronary artery disease Hyperlipidemia Hypertension Grandmother Diabetes Hypertension Grandfather Psychiatric illness Other CAD (coronary artery disease) Stroke Denies family history of Colon cancer Ovarian cancer Breast cancer Bleeding disorder Uterine cancer Social History Smoking and tobacco/nicotine status: never used tobacco/nicotine Second hand smoke exposure: No Alcohol intake: never Substance/Drug Use: never Physical Exam 2 Const: COMMON NORMALS: no acute distress, average body habitus, patient oriented x3, no limitations, healthy appearing, alert and well nourished HENMT: COMMON NORMALS: normocephalic, atraumatic, hearing grossly normal bilaterally, external ears normal, Normal external nose present and moist oral mucous membranes HEAD & SCALP: normocephalic and atraumatic NOSE: Normal external nose present EXTERNAL EAR: Yes external ears normal Neck/C-Spine: COMMON NORMALS: no JVD Chest: COMMONS NORMALS: normal inspection of the chest and normal palpation of entire chest wall Resp: COMMON NORMALS: normal respiratory effort, No retractions, No use of accessory muscles and clear to auscultation bilaterally AUSCULTATION: clear to auscultation bilaterally Cardio: COMMON NORMALS: no JVD, regular rate, regular rhythm, S1 normal heart sound present, S2 normal heart sound present, No gallops present (Cardio), No clicks present (Cardio), No murmurs present (Cardio) and No rub (Cardio) R ATE: regular rate RHYTHM: regular rhythm HEART SOUNDS: S1 normal heart sound present and S2 normal heart sound present GI: COMMON NORMALS: Normal to inspection, nondistended, normoactive bowel sounds present, Soft to palpation, non-tender, No hepatosplenomegaly present and no masses PALPATION: Yes Soft to palpation and Yes No hepatosplenomegaly present Neuro: COMMON NORMALS: patient oriented x3 SENSORIUM/ORIENTATION: Yes alert Course 2 Vital Signs: Vital signs: Vital Signs Temperature 98.9 F 09/27/23 17:58 Pulse Rate 76 09/27/23 20:16 Respiratory Rate 18 09/27/23 19:20 Blood Pressure 148/94 09/27/23 20:16 Pulse Oximetry 95 09/27/23 20:16 Oxygen Delivery Me thod Room Air 09/27/23 20:16 MDM - Chest Pain Medical Decision Making Patient was worked up in a standard chest pain fashion with serial EKGs, serial lab work including troponin chest x-ray and urinalysis, everything was essentially benign other than initial troponin was 19, 2-hour troponin was approximately 25, BUN/creatinine was approximately 26 and 1.5. Patient is on diuretics. These results was discussed with the patient patient will be discharged home. Differential Diagnosis Unlikely acute massive pulmonary embolism, acute respiratory failure, acute myocardial infarction, cardiac arrest or sudden cardiac Medical Records I reviewed the patient's medical records. Lab Data I reviewed the patient's lab results. 09/27/23 18:21 09/27/23 18:21 Radiology Impressions Chest X-Ray 09/27/23 18:08 IMPRESSION: No acute findings. Laboratory Results WBC 10.42 10^3/uL (3.29-11.43) 09/27/23 18:21 RBC 5.23 10^6/uL (3.85-5.65) 09/27/23 18:21 Hgb 14.70 g/dL (11.27-16.99) 09/27/23 18:21 Hct 45.1 % (36-47) 09/27/23 18:21 MCV 86.2 fl (85-98) 09/27/23 18:21 MCH 28.1 pg (27-33) 09/27/23 18:21 MCHC 32.6 g/dL (30-55) 09/27/23 18:21 RDW 13.8 % (12.1-15.1) 09/27/23 18:21 Plt Count 294 10^3/cmm (157-399) 09/27/23 18:21 MPV 10.6 fL (7.4-10.4) H 09/27/23 18:21 Neut % (Auto) 76.9 % 09/27/23 18:21 Lymph % (Auto) 14.8 % 09/27/23 18:21 [place] % (Auto) 5.8 % 09/27/23 18:21 Eos % (Auto) 1.4 % 09/27/23 18:21 Baso % (Auto) 0.6 % 09/27/23 18:21 Neut # (Auto) 8.02 10^3/uL (1.8-7.7) H 09/27/23 18:21 Lymph # (Auto) 1.5 10^3/uL (0.8-4.8) 09/27/23 18:21 [place] # (Auto) 0.6 10^3/uL (0.2-0.9) 09/27/23 18:21 Eos # (Auto) 0.2 10^3/uL (0.0-0.8) 09/27/23 18:21 Baso # (Auto) 0.1 10^3/uL (0.0-0.1) 09/27/23 18:21 Nucleated RBC % (auto) 0 % 09/27/23 18:21 Nucleated RBCs # 0.0 /100WBC 09/27/23 18:21 Sodium 139 mmol/L (136-145) 09/27/23 18:21 Potassium 4.0 mmol/L (3.5-5.1) 09/27/23 18:21 Chloride 95 mmol/L (98-107) L 09/27/23 18:21 Carbon Dioxide 27 mmol/L (22-29) 09/27/23 18:21 Anion Gap 21.0 (5-19) H 09/27/23 18:21 BUN 26 mg/dL (8-23) H 09/27/23 18:21 Creatinine 1.5 mg/dL (0.5-0.9) H 09/27/23 18:21 GFR Calculation 34.7 mL/min (90-130) L 09/27/23 18:21 Glucose 192 mg/dL (65-115) H 09/27/23 18:21 Calculated Osmolality 298 mOsm/kg (285-295) H 09/27/23 18:21 Calcium 9.8 mg/dL (8.5-10.5) 09/27/23 18:21 Total Bilirubin 0.2 mg/dL (0.15-1.2) 09/27/23 18:21 AST 16 U/L (0-32) 09/27/23 18:21 ALT 26 U/L (0-33) 09/27/23 18:21 Alkaline Phosphatase 83 U/L (35-105) 09/27/23 18:21 Troponin T Baseline 19 ng/L (0-10) H 09/27/23 18:21 Troponin T 120 Minute 24.16 ng/L (0-10) H 09/27/23 20:26 Delta Troponin T 5.16 ABS# (0-10) 09/27/23 20:26 Total Protein 7.5 g/dL (6.6-8.7) 09/27/23 18:21 Albumin 4.6 g/dL (3.5-5.2) 09/27/23 18:21 Globulin 2.9 g/dL (1.3-4.6) 09/27/23 18:21 Lipase 59 U/L (13-60) 09/27/23 18:21 Urine Color Yellow (Yellow) 09/27/23 19:03 Urine Appearance Clear (CLEAR) 09/27/23 19:03 Urine pH 7 (5-7) 09/27/23 19:03 Ur Specific [place] 1.005 (1.005-1.030) 09/27/23 19:03 Urine Protein Neg (Negative) 09/27/23 19:03 Urine Glucose (UA) Norm (Normal) 09/27/23 19:03 Urine Ketones Negative (Negative) 09/27/23 19:03 Urine Blood Neg (Negative) 09/27/23 19:03 Urine Nitrate Negative (Negative) 09/27/23 19:03 Urine Bilirubin Neg (Negative) 09/27/23 19:03 Urine Urobilinogen Neg mg/dL (Negative) 09/27/23 19:03 Ur Leukocyte Esterase Negative (Negative) 09/27/23 19:03 All radiology interpretation(s) finalized by discharge EKG Data EKG 1: I personally reviewed and interpreted this EKG as follows: EKG interpretation date: 09/27/23 EKG interpretation time: 20:06 Interpretation: Ventricular rate 76 bpm, FL interval 161, QRS duration 89, QTc of 434, sinus rhythm EKG 2: I personally reviewed and interpreted this EKG as follows: EKG interpretation date: 09/27/23 EKG interpretation time: 18:02 Interpretation: Ventricular rate 82 bpm, FL interval 156, QRS duration 90, QTc of 418, sinus rhythm Discharge Plan Discharge Patient Disposition: Home Clinical Impression: Chest pain Qualifiers: Chest pain type: unspecified Qualified Code(s): R07.9 - Chest pain, unspecified Condition: Stable Prescriptions: No Action aspirin 325 mg tablet 325 mg PO QDAY Hold Instructions: Resume on 07/12/19. oxybutynin chloride 10 mg tablet extended release 24hr 5 mg PO DAILY Qty: 90 1RF spironolactone 50 mg tablet 50 mg PO .q am Qty: 90 1RF bumetanide 2 mg tablet 2 mg PO BID Qty: 180 1RF famotidine 20 mg tablet 20 mg PO DAILY PRN (Reason: acid reflux) Qty: 90 1RF bupropion HCl [Wellbutrin XL] 300 mg tablet extended release 24 hr 300 mg PO QAM Qty: 90 1RF isosorbide mononitrate 30 mg tablet extended release 24 hr 15 mg PO BID Qty: 90 1RF metformin 500 mg tablet 500 mg PO BID 90 Days Qty: 180 2RF metoprolol succinate 25 mg tablet extended release 24 hr 25 mg PO BID Qty: 180 3RF (DME) CPAP mask See Rx Instructions .Route .MEDSUPPLY Qty: 1 0RF Rx Instructions: autosubstitue formulary equivalent SEND TO HOME ; autosubstitue formulary equivalent SEND TO HOME (DME) CPAP AUTO TITRATING 6-12 See Rx Instructions .Route .MEDSUPPLY Qty: 1 0RF Rx Instructions: As directed paroxetine HCl 40 mg tablet See Rx Instructions .ROUTE .COMPLEX Qty: 30 1RF Dose Instruction: Take 1 tablet by mouth once daily Rx Instructions: Take 1 tablet by mouth once daily Discharge Orders: Discharge ED (Routine); Ordered 09/27/23 Ordered By: Abe Wooten Referrals: Dominguez Horne MD [Primary Care Provider] - 1 week Patient Instructions: Chest Pain (ED) Activity Restrictions/Additional Instructions: Thank you for choosing [facility] for your healthcare needs today. Please realize that you were seen in the emergency department and that we are providing you with an emergency medical screening exam and this may not be a complete and all exclusive of all testing and/or medical workup we may need to determine your element or severity of your illness. It is very important that you follow-up as instructed with your primary care provider or specialist for the additional evaluation and to discuss your medical treatment plan. You may return to the emergency department should you have concerns or if your condition changes or worsens in any way. Coding Level of Care Code ED [employer] for Adelina Johnson
--- NOTE | 2023-09-27 20:06 | ECG_ITS ---
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 Measurements Intervals [place] Rate: 76 P: 57 GA: 161 QRS: 81 QRSD: 89 T: 30 QT: 403 QTc: 456 Interpretive Statements SINUS RHYTHM POSSIBLE INFERIOR MYOCARDIAL INFARCTION , PROBABLY OLD [30 ms Q WAVE IN II/aVF] Compared to ECG 09/27/2023 18:02:57 No significant changes Electronically Signed On 09-28-2023 9:23:14 CDT by Thomas Huertas M.D. [id number]
[2023-09-27 20:16] VITALS: BP 148/94; PULSE 76; O2SAT 95
[2023-09-27 20:47] LABS: Troponin 5 2HR 24.16 ng/L (0-10); Troponin 5 2HR Delta 5.16 ABS# (0-10)
[2023-09-27 21:29] VITALS: BP 152/89; PULSE 70; O2SAT 95
== END 2023-09-27 21:31 | disposition home or self-care (01) ==
PROVIDERS: Emergency Medicine; Emergency Provider Emergency Medicine; PCP Family Medicine Adult Medicine
DX: R07.9 Chest pain, unspecified (principal); Z79.82 Long term (current) use of aspirin; Z79.84 Long term (current) use of oral hypoglycemic drugs; E11.22 Type 2 diabetes mellitus with diabetic chronic kidney disease; I12.9 Hypertensive chronic kidney disease with stage 1 through stage 4 chronic kidney disease, or unspecified chronic kidney disease; N18.2 Chronic kidney disease, stage 2 (mild); E78.5 Hyperlipidemia, unspecified
CPT/HCPCS: 36415; 71045; 80053; 81003; 83690; 84484; 85025; 93005; 99285

== ENCOUNTER 2023-10-04 11:02 | Emergency (ER) | payer MEDICARE, MEDICAID, SELFPAY ==
[2023-10-04 11:05] VITALS: BP 162/89; PULSE 67; TEMP 36.7; O2SAT 95
--- NOTE | 2023-10-04 11:13 | ED_ITS ---
HPI - Back Pain/Injury General: Chief Complaint: Back Pain/Injury Stated Complaint: back pain Time Seen by Provider: 10/04/23 11:07 Source: patient and EMS Mode of arrival: EMS Limitations: no limitations History of Present Illness: 67-year-old female states she has been h aving left lower back pain last night and today. States she feels like she is having spasms in her left lower back is much worse with movement improved with rest she denies any injuries denies any bowel or bladder incontinence. Associated symptoms: Deny abdominal pain, chills, fever(s), nausea or vomiting Review of Systems Const: Denies: fever(s), chills, body aches or change in appetite ENMT: Denies: throat pain or dental pain Card: Denies: chest pain Resp: Denies: dyspnea GI: Denies: abdominal pain, nausea, vomiting or diarrhea Musc: Reports: back pain; Denies: neck pain Skin/Breast: Denies: rash Neuro: Denies: headache(s) PFSH ED PFSH: Medical History Hypokalemia Hearing loss Bilateral lower extremity edema Urge incontinence CKD stage 2 due to type 2 diabetes mellitus ELIZABETH on CPAP Diabetes mellitus type 2 in obese Dyslipidemia (high LDL; low HDL) Ganglion cyst of tendon sheath of left hand Osteoarthritis involving multiple joints on both sides of body Morbid obesity with BMI of 45.0-49.9, adult Familial tremor Varicose veins of bilateral lower extremities with pain Venous insufficiency Hypertension Surgical History S/P trigger finger release 2 fingers on the left hand and 1 on the right by Dr. Florence H/O carpal tunnel repair left wrist Status post excision of skin lesion, follow-up exam Hx of appendectomy History of tonsillectomy and adenoidectomy Hx of hysterectomy Hx of cholecystectomy Hx of tubal ligation History of carpal tunnel surgery of right wrist Family History Mother Chronic kidney disease (CKD) Clotting disorder Dementia Family history of premature coronary artery disease Hypertension Psychiatric illness Thyroid disease Sister Chronic kidney disease (CKD) Diabetes Family history of premature coronary artery disease Hyperlipidemia Hypertension Lung disease Anesthesia complication Thyroid disease Father Dementia Family history of premature coronary artery disease Hyperlipidemia Hypertension Grandmother Diabetes Hypertension Grandfather Psychiatric illness Other CAD (coronary artery disease) Stroke Denies family history of Colon cancer Ovarian cancer Breast cancer Bleeding disorder Uterine cancer Social History Smoking and tobacco/nicotine status: never used tobacco/nicotine Second hand smoke exposure: No Alcohol intake: never Substance/Drug Use: never Physical Exam Const: COMMON NORMALS: no acute distress, patient oriented x3 and healthy appearing HENMT: COMMON NORMALS: normocephalic and atraumatic HEAD & SCALP: normoce phalic and atraumatic Neck/C-Spine: COMMON NORMALS: full ROM and supple Chest: COMMONS NORMALS: normal inspection of the chest Resp: COMMON NORMALS: normal respiratory effort, No retractions, No use of accessory muscles and clear to auscultation bilaterally AUSCULTATION: clear to auscultation bilaterally Cardio: COMMON NORMALS: regular rate, regular rhythm and No murmurs present (Cardio) RATE: regular rate RHYTHM: regular rhythm GI: COMMON NORMALS: Normal to inspection, nondistended, normoactive bowel sounds present, Soft to palpation, non-tender and no masses PALPATION: Yes Soft to palpation Back/Pelvis: OTHER: Tenderness noted to the left lower back no midline tenderness Extremity: COMMON NORMALS: normal to inspection and full ROM Neuro: COMMON NORMALS: patient oriented x3, moves all extremities and no focal motor deficits Psych: COMMON NORMALS: mental status grossly normal, Normal thought process present and cooperative THOUGHT PROCESS: Normal thought process present Skin: COMMON NORMALS: no rashes or lesions noted and no wounds GENERAL SKIN EXAM: no rashes or lesions noted Course Vital Signs: Vital signs: Vital Signs Temperature 98.1 F 10/04/23 11:05 Pulse Rate 64 10/04/23 12:21 Respiratory Rate 18 10/04/23 11:26 Blood Pressure 145/77 10/04/23 12:21 Pulse Oximetry 91 10/04/23 12:21 Oxygen Delivery Me thod Room Air 10/04/23 11:05 MDM - Back Pain/Injury Medical Decision Making Patient presents with back pain likely muscular in nature she feels improved here after pain meds we will prescribe her Naprosyn Robaxin she is follow-up with PCP and return if worsening she understands agrees to plan. Medical Records I reviewed the patient's medical records. No radiology studies performed this visit Discharge Plan Discharge Patient Disposition: Home Clinical Impression: Low back pain Condition: Stable Prescriptions: New methocarbamol 750 mg tablet 750 mg PO Q6H PRN (Reason: spasms) Qty: 20 0RF Naprosyn 500 mg tablet 500 mg PO BID PRN (Reason: pain) Qty: 20 0RF No Action aspirin 325 mg tablet 325 mg PO QDAY Hold Instructions: Resume on 07/12/19. oxybutynin chloride 10 mg tablet extended release 24hr 5 mg PO DAILY Qty: 90 1RF spironolactone 50 mg tablet 50 mg PO .q am Qty: 90 1RF bumetanide 2 mg tablet 2 mg PO BID Qty: 180 1RF famotidine 20 mg tablet 20 mg PO DAILY PRN (Reason: acid reflux) Qty: 90 1RF bupropion HCl [Wellbutrin XL] 300 mg tablet extended release 24 hr 300 mg PO QAM Qty: 90 1RF isosorbide mononitrate 30 mg tablet extended release 24 hr 15 mg PO BID Qty: 90 1RF metformin 500 mg tablet 500 mg PO BID 90 Days Qty: 180 2RF metoprolol succinate 25 mg tablet extended release 24 hr 25 mg PO BID Qty: 180 3RF (DME) CPAP mask See Rx Instructions .Route .MEDSUPPLY Qty: 1 0RF Rx Instructions: autosubstitue formulary equivalent SEND TO HOME ; autosubstitue formulary equivalent SEND TO HOME (DME) CPAP AUTO TITRATING 6-12 See Rx Instructions .Route .MEDSUPPLY Qty: 1 0RF Rx Instructions: As directed paroxetine HCl 40 mg tablet See Rx Instructions .ROUTE .COMPLEX Qty: 30 1RF Dose Instruction: Take 1 tablet by mouth once daily Rx Instructions: Take 1 tablet by mouth once daily magnesium oxide 400 mg magnesium tablet 400 mg PO DAILY Qty: 90 3RF Discharge Orders: Discharge ED (Routine); Ordered 10/04/23 Ordered By: Keily Laguerre Referrals: Dominguez Horne MD [Primary Care Provider] - 4-7 days Discharge Diet: Advance as tolerated Discharge Activity: Resume usual activity Patient Instructions: Back Pain (ED) Coding Level of Care Code ED Junior Mechanical Engineer for Adelina Johnson
[2023-10-04] MEDS: methocarbamol 750 mg Tablet 1500 MG PO (11:25)
[2023-10-04 11:26] VITALS: RESP 18; O2SAT 95
[2023-10-04] MEDS: morphine 4 mg/mL SDV 1 mL IM (11:26)
[2023-10-04 12:21] VITALS: BP 145/77; PULSE 64; O2SAT 91
== END 2023-10-04 12:23 | disposition home or self-care (01) ==
PROVIDERS: Emergency Provider Emergency Medicine; PCP Family Medicine Adult Medicine
DX: M54.50 Low back pain, unspecified (principal); Z79.82 Long term (current) use of aspirin; Z79.84 Long term (current) use of oral hypoglycemic drugs; E11.22 Type 2 diabetes mellitus with diabetic chronic kidney disease; I12.9 Hypertensive chronic kidney disease with stage 1 through stage 4 chronic kidney disease, or unspecified chronic kidney disease; N18.2 Chronic kidney disease, stage 2 (mild); E78.5 Hyperlipidemia, unspecified
CPT/HCPCS: 96372; 99284; J2270

== ENCOUNTER → 2023-11-11 12:39 | Outpatient (BNVA) | payer MEDICARE, MEDICAID, SELFPAY | PROVIDERS: PCP Family Medicine Adult Medicine; Visit Provider Internal Medicine Cardiovascular Disease | DX: I11.0 Hypertensive heart disease with heart failure (principal); I50.32 Chronic diastolic (congestive) heart failure; R53.83 Other fatigue; R00.2 Palpitations; R00.1 Bradycardia, unspecified | CPT/HCPCS: 99214 ==

== ENCOUNTER → 2023-12-14 09:31 | Outpatient (BNVA) | payer MEDICARE, MEDICAID, SELFPAY | PROVIDERS: PCP Family Medicine Adult Medicine; Visit Provider Specialist | DX: M19.041 Primary osteoarthritis, right hand (principal) | CPT/HCPCS: 73130; 99213 ==

== ENCOUNTER → 2023-12-22 09:07 | Outpatient (BNVA) | payer MEDICARE, MEDICAID, SELFPAY | PROVIDERS: PCP Family Medicine Adult Medicine; Visit Provider Podiatrist Foot & Ankle Surgery | DX: I83.813 Varicose veins of bilateral lower extremities with pain (principal); E11.22 Type 2 diabetes mellitus with diabetic chronic kidney disease; N18.2 Chronic kidney disease, stage 2 (mild); L84 Corns and callosities; L60.3 Nail dystrophy; I73.9 Peripheral vascular disease, unspecified; R03.0 Elevated blood-pressure reading, without diagnosis of hypertension; Z79.84 Long term (current) use of oral hypoglycemic drugs | CPT/HCPCS: 11055; 11721 ==

== ENCOUNTER → 2024-04-14 09:41 | Outpatient (BNVA) | payer MEDICARE, MEDICAID, SELFPAY | PROVIDERS: PCP Family Medicine; Visit Provider Family Medicine | DX: E11.69 Type 2 diabetes mellitus with other specified complication (principal); E66.9 Obesity, unspecified; I10 Essential (primary) hypertension; E11.22 Type 2 diabetes mellitus with diabetic chronic kidney disease; N18.2 Chronic kidney disease, stage 2 (mild) | CPT/HCPCS: 80053; 82043; 83036; 84443 ==

== ENCOUNTER → 2024-05-10 10:14 | Outpatient (BNVA) | payer MEDICARE, MEDICAID, SELFPAY | PROVIDERS: PCP Family Medicine; Visit Provider Podiatrist Foot & Ankle Surgery | DX: E11.8 Type 2 diabetes mellitus with unspecified complications (principal); L60.3 Nail dystrophy; L84 Corns and callosities; I83.813 Varicose veins of bilateral lower extremities with pain; E11.22 Type 2 diabetes mellitus with diabetic chronic kidney disease; N18.2 Chronic kidney disease, stage 2 (mild); I73.9 Peripheral vascular disease, unspecified; Z79.84 Long term (current) use of oral hypoglycemic drugs | CPT/HCPCS: 11055; 11721 ==

== ENCOUNTER → 2024-06-15 13:01 | Outpatient (BNVA) | payer MEDICARE, MEDICAID, SELFPAY | PROVIDERS: PCP Family Medicine; Visit Provider Internal Medicine Cardiovascular Disease | DX: I47.10 Supraventricular tachycardia, unspecified (principal); I83.90 Asymptomatic varicose veins of unspecified lower extremity; I13.0 Hypertensive heart and chronic kidney disease with heart failure and stage 1 through stage 4 chronic kidney disease, or unspecified chronic kidney disease; I50.30 Unspecified diastolic (congestive) heart failure; N18.30 Chronic kidney disease, stage 3 unspecified | CPT/HCPCS: 99214 ==

== ENCOUNTER 2024-08-04 13:49 | Outpatient (CLI) | payer MEDICARE, MEDICAID, SELFPAY ==
--- NOTE | 2024-08-04 14:00 | XR_ITS ---
WS: [id number] SCREENING DEXA SCAN vogogo CLINICAL INFORMATION: POSTMENOPAUSAL STATUS COMPARISON: None. FINDINGS: The L1-L4 bone mineral density measures 1.420 g/cm2. This corresponds to a T score score of 2.0 and Z score of 2.5. Left femoral neck bone mineral density measures 0.890 g/cm2. This corresponds to a T score of -0.9 and Z score of -0.4. Right femoral neck bone mineral density measures 0.890 g/cm2. This corresponds to a T score -0.9of and Z score of -0.4. Mean femoral neck bone mineral density measures 0.890 g/cm2. This corresponds to a T score of -0.9 and Z score of -0.4. XR/XR DEXA axial skeleton* [id number] IMPRESSION: Normal bone mineralization. Patient's FRAX calculated 10 year probability for major osteoporotic fracture i s 13.4% and osteoporotic hip fracture is 1.2%.
--- NOTE | 2024-08-04 14:00 | MM_ITS ---
WS: [id number] BILATERAL 3D TOMOSYNTHESIS DIGITAL SCREENING MAMMOGRAPHY WITH CAD CLINICAL INFORMATION: SCREENING HISTORY: Screening mammogram. No current complaints. COMPARISON: 2019 TECHNIQUE: Bilateral CC and MLO views. FINDINGS: Scattered fibroglandular densities bilaterally. No suspicious focal mass, asymmetry, calcifications, or architectural distortion. No evidence of malignancy. A few incidental calcifications. MM/MM [facility] tomosynthesis [id number] IMPRESSION: DENSITY: There are scattered areas of fibroglandular density. BI-RADS: 2 - Benign. FOLLOW UP: 1 Year Follow-up Recommend return to annual screening mammography.
== END 2024-08-04 13:50 | disposition home or self-care (01) ==
LOC: RAD 13:53
PROVIDERS: PCP Family Medicine; Visit Provider Family Medicine
DX: Z12.31 Encounter for screening mammogram for malignant neoplasm of breast (principal); Z78.0 Asymptomatic menopausal state; R92.323 Mammographic fibroglandular density, bilateral breasts; R92.1 Mammographic calcification found on diagnostic imaging of breast
CPT/HCPCS: 77063; 77067; 77080

== ENCOUNTER → 2024-08-09 09:59 | Outpatient (BNVA) | payer MEDICARE, MEDICAID, SELFPAY | PROVIDERS: PCP Family Medicine; Visit Provider Podiatrist Foot & Ankle Surgery | DX: E11.22 Type 2 diabetes mellitus with diabetic chronic kidney disease (principal); L60.3 Nail dystrophy; L84 Corns and callosities; E11.8 Type 2 diabetes mellitus with unspecified complications; I83.813 Varicose veins of bilateral lower extremities with pain; N18.2 Chronic kidney disease, stage 2 (mild); I73.9 Peripheral vascular disease, unspecified; Z79.84 Long term (current) use of oral hypoglycemic drugs | CPT/HCPCS: 11055; 11721 ==

== ENCOUNTER → 2024-09-16 15:02 | Outpatient (BNVA) | payer MEDICARE, MEDICAID, SELFPAY | PROVIDERS: PCP Family Medicine; Visit Provider Family Medicine | DX: E11.69 Type 2 diabetes mellitus with other specified complication (principal); E78.5 Hyperlipidemia, unspecified; E66.9 Obesity, unspecified; I10 Essential (primary) hypertension; I50.32 Chronic diastolic (congestive) heart failure | CPT/HCPCS: 80061; 83036; 85025 ==

== ENCOUNTER → 2024-11-01 14:11 | Outpatient (BNVA) | payer OTHER, MEDICAID, SELFPAY | PROVIDERS: PCP Family Medicine; Visit Provider Podiatrist Foot & Ankle Surgery | DX: E11.22 Type 2 diabetes mellitus with diabetic chronic kidney disease (principal); L60.3 Nail dystrophy; L84 Corns and callosities; E11.8 Type 2 diabetes mellitus with unspecified complications; I83.813 Varicose veins of bilateral lower extremities with pain; I73.9 Peripheral vascular disease, unspecified; N18.2 Chronic kidney disease, stage 2 (mild); Z79.84 Long term (current) use of oral hypoglycemic drugs | CPT/HCPCS: 11055; 11721 ==

== ENCOUNTER → 2024-12-27 13:15 | Outpatient (BNVA) | payer OTHER, MEDICAID, SELFPAY | PROVIDERS: PCP Family Medicine; Visit Provider Family Medicine | DX: E11.69 Type 2 diabetes mellitus with other specified complication (principal); E66.01 Morbid (severe) obesity due to excess calories; Z68.42 Body mass index [BMI] 45.0-49.9, adult; R10.13 Epigastric pain; Z79.84 Long term (current) use of oral hypoglycemic drugs; Z79.85 Long-term (current) use of injectable non-insulin antidiabetic drugs | CPT/HCPCS: 80053; 83036; 83690 ==